=== PATIENT | female | born 1990 | race Caucasian/White ===

== ENCOUNTER 2017-12-29 08:41 | Outpatient (RCR) | payer MEDICAID, SELFPAY ==
--- NOTE | 2017-12-29 12:59 | PCM.HP.BLA ---
History and Physical Identifying information Patient is 27-year-old single female who presents to the behavioral medicine [facility] with chief complaint of I have a diagnosis of schizoaffective disorder history is been obtained per interview with patient discussion with staff and review of chart. Case discussed with treatment team. History of present illness Patient is 27-year-old single female with history of schizoaffective disorder bipolar type who reports increased mood instability and paranoia over the past 2-3 months. She associates her exacerbation of symptoms with job stress. 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 She notes that she has had recent accommodations at the job which have resulted in improvement. She endorses a long-standing history of mood cycling. She endorses episodes of depression in which she is sad with anhedonia, decreased energy, crying spells, decreased motivation, and difficulty with ADLs. She reports episodes of osei and hypomania in which she feels restless irritable anxious has decreased concentration and decreased need for sleep. Her last hypomanic episode was 3 days ago and lasted only one day. She endorses some depressed mood currently with anhedonia and difficulty concentrating. She was noted by staff to have difficulty with ADLs earlier in the week. She is generally been sleeping from 2 to 3 AM until 11:30 AM. She works second shift. She has ruminative anxiety about multiple issues. She is a perfectionist and feels that this has interfered with her work function. She endorses history of paranoid thoughts. She reports that they have been recently present she had describes her paranoid thoughts in which she fears she is being judged. She describes visual and auditory perceptual disturbances as I dissociate to imagery scenarios with people I know. It is unclear if these episodes are more dissociative or psychotic. She denies current suicidal thoughts. She has history of chronic passive thoughts of . No suicide plan or intent. Feels able to maintain safety. Her appetite has been fair. She has history of binge eating disorder. She was prescribed Vyvanse in October 2016 at which time her weight was 311 pounds. She feels it is been effective. Her weight is now 270 pounds. She denies homicidal thoughts. Past psychiatric history Schizoaffective disorder bipolar type. Suspect history of learning disability. No previous hospitalizations or suicide attempts. Current psychiatrist Dr. wang fernández. Current counselor Ana Sorenson. Substance use history Denies smoking cigarettes Consumes 2-3 alcoholic drinks once per month Denies illicit drug use Past medical history Hypothyroid Type 2 diabetes PCO S Hypertension Denies history of seizure Allergies no known medical allergies Current medications Seroquel 500 mg nightly [place] 600 mg p.o. twice daily Effexor 75 mg every morning Vyvanse 40 mg every morning Klonopin 0.5 mg as needed Synthroid Metoprolol Family medical psychiatric history She believes mother and father have both taken antidepressants. She believes there is undiagnosed mental illness in the family Developmental social history Patient was born in [place]. She has a twin brother. They moved to [place] at age 3. Her parents then . She moved to [place] for elementary and middle school. She moved back to [place] with her brother for high school. She graduated from high school she moved back to [place] in 2009. She is currently working at [employer] as a unit aide where she is worked for 2 months. She lives in an apartment alone. Her mother and stepfather live in [place]. Legal history none Mental status exam Vital signs reviewed per nursing database and discussed with nursing. Patient is alert and oriented in no acute distress. She is ambulatory with normal gait and station. She is casually dressed and groomed. She is appropriate hygiene. She is cooperative with the interview. She has good eye contact. There is no psychomotor agitation or retardation. Mood is dysphoric and anxious. Affect congruent. Speech is clear and of regular rate and volume. Language fluent. Thought process organized. Associations logical. Thought content significant for ruminative anxiety. Chronic passive thoughts of . No current suicide plan or intent. Feels able to maintain safety. No homicidal ideation. Reports visual and auditory perceptual disturbances of conversing with people she knows. Immediate recent and remote memory grossly intact attention and concentration are fair. Estimated intelligence fund of knowledge average. Judgment and insight are limited to fair. Labs and testing Lab work will be requested from Dr. wang aldridge. Further lab work will be obtained as needed. Diagnosis Schizoaffective disorder bipolar type Anxiety unspecified Obsessive-compulsive traits-rule out OCD Binge eating disorder by history Plan Admit to IOP as the structured setting is necessary to prevent decompensation. Risks benefits alternatives of medications discussed with patient. Patient acknowledges understanding. Continue Seroquel 500 mg p.o. nightly, lithium 600 mg p.o. twice daily, Effexor 75 mg p.o. every morning, Vyvanse 40 mg every morning, clonazepam 0.5 mg as needed. Patient denies exacerbation of her anxiety or perceptual disturbances by Vyvanse. Continue follow-up with Dr. piña up. Continue follow-up with Ana Sorenson. Follow-up with body coverer as scheduled. Patient acknowledges understanding and is in agreement with plan. She feels able to maintain safety. She agrees to seek help or emergency care feeling unsafe to self or others.
--- NOTE | 2017-12-29 13:13 | HP.PCM_ITS ---
History and Physical Identifying information Patient is 27-year-old single female who presents to the behavioral medicine [facility] with chief complaint of I have a diagnosis of schizoaffective disorder history is been obtained per interview with patient discussion with staff and review of chart. Case discussed with treatment team. History of present illness Patient is 27-year-old single female with history of schizoaffective disorder bipolar type who reports increased mood instability and paranoia over the past 2 -3 months. She associates her exacerbation of symptoms with job stress. 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 She notes that she has had recent accommodations at the job which have resulted in improvement. She endorses a long-standing history of mood cycling. She endorses episodes of depression in which she is sad with anhedonia , decreased energy, crying spells, decreased motivation, and difficulty with ADLs. She reports episodes of osei and hypomania in which she feels restless irritable anxious has decreased concentration and decreased need for sleep. Her last hypomanic episode was 3 days ago and lasted only one day. She endorses some depressed mood currently with anhedonia and difficulty concentrating. She was noted by staff to have difficulty with ADLs earlier in the week. She is generally been sleeping from 2 to 3 AM until 11:30 AM. She works second shift. She has ruminative anxiety about multiple issues. She is a perfectionist and feels that this has interfered with her work function. She endorses history of paranoid thoughts. She reports that they have been recently present she had describes her paranoid thoughts in which she fears she is being judged. She describes visual and auditory perceptual disturbances as I dissociate to imagery scenarios with people I know. It is unclear if these episodes are more dissociative or psychotic. She denies current suicidal thoughts. She has history of chronic passive thoughts of . No suicide plan or intent. Feels able to maintain safety. Her appetite has been fair. She has history of binge eating disorder. She was prescribed Vyvanse in October 2016 at which time her weight was 311 pounds. She feels it is been effective. Her weight is now 270 pounds. She denies homicidal thoughts. Past psychiatric history Schizoaffective disorder bipolar type. Suspect history of learning disability. No previous hospitalizations or suicide attempts. Current psychiatrist Dr. wang fernández. Current counselor Ana Sorenson. Substance use history Denies smoking cigarettes Consumes 2-3 alcoholic drinks once per month Denies illicit drug use Past medical history Hypothyroid Type 2 diabetes PCO S Hypertension Denies history of seizure Allergies no known medical allergies Current medications Seroquel 500 mg nightly [place] 600 mg p.o. twice daily Effexor 75 mg every morning Vyvanse 40 mg every morning Klonopin 0.5 mg as needed Synthroid Metoprolol Family medical psychiatric history She believes mother and father have both taken antidepressants. She believes there is undiagnosed mental illness in the family Developmental social history Patient was born in [place]. She has a twin brother. They moved to [place] at age 3. Her parents then . She moved to [place] for elementary and middle school. She moved back to [place] with her brother for high school. She graduated from high school she moved back to [place] in 2009. 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 She lives in an apartment alone. Her mother and stepfather live in [place]. Legal history none Mental status exam Vital signs reviewed per nursing database and discussed with nursing. Patient is alert and oriented in no acute distress. She is ambulatory with normal gait and station. She is casually dressed and groomed. She is appropriate hygiene. She is cooperative with the interview. She has good eye contact. There is no psychomotor agitation or retardation. Mood is dysphoric and anxious. Affect congruent. Speech is clear and of regular rate and volume. Language fluent. Thought process organized. Associations logical. Thought content significant for ruminative anxiety. Chronic passive thoughts of . No current suicide plan or intent. Feels able to maintain safety. No homicidal ideation. Reports visual and auditory perceptual disturbances of conversing with people she knows. Immediate recent and remote memory grossly intact attention and concentration are fair. Estimated intelligence fund of knowledge average. Judgment and insight are limited to fair. Labs and testing Lab work will be requested from Dr. wang aldridge. Further lab work will be obtained as needed. Diagnosis Schizoaffective disorder bipolar type Anxiety unspecified Obsessive-compulsive traits-rule out OCD Binge eating disorder by history Plan Admit to IOP as the structured setting is necessary to prevent decompensation. Risks benefits alternatives of medications discussed with patient. Patient acknowledges understanding. Continue Seroquel 500 mg p.o. nightly, lithium 600 mg p.o. twice daily, Effexor 75 mg p.o. every morning, Vyvanse 40 mg every morning, clonazepam 0.5 mg as needed. Patient denies exacerbation of her anxiety or perceptual disturbances by Vyvanse. Continue follow-up with Dr. ipña up. Continue follow-up with Ana Soernson. Follow-up with manager card as scheduled. Patient acknowledges understanding and is in agreement with plan. She feels able to maintain safety. She agrees to seek help or emergency care feeling unsafe to self or others.
--- NOTE | 2017-12-29 13:13 | BH.DR.ITP ---
Initial Treatment Plan - Patient Information Visit Information: ADMISSION DATE: EXPECTED LOS: 4-6 weeks Diagnoses:: Schizoaffective disorder bipolar type - Problems/Symptoms Problem #1:: Mood instability Symptom:: Depression, hypomania, passive thoughts of , poor concentration, biologic disruption of sleep, Problem #2:: Anxiety Symptom:: Rumination Problem #3:: Perceptual disturbances/dissociation/psychosis
--- NOTE | 2018-01-01 15:26 | BH.COMM ---
Communication Note - Communication with Client Communication Note: This therapist attempted to call client as she no called/no showed for scheduled IOP session today. Therapist unable to reach client and left a message sharing therapist will contact client's emergency contact if no client response by 3pm. Therapist contacted emergency contact and was informed client missed group due to oversleeping and client presents with no current risks/concerns for herself.
--- NOTE | 2018-01-02 14:10 | BH.SGPN ---
Service Group Progress Note - Session Psychotherapy Session #1 Date Open:: 01/02/18 Time Started:: 09:07 Time Stopped:: 09:58 Targeted Problem #:: 1 Type of Group:: Process - 5 Participants Goal of Group:: The goal of today's group was to check-in with client's mood, stressors, and positives, review homework, and to introduce the topic of the day. Client Response/Progress/Benefit:: Client entered session alert and attentive. Client appeared distracted AEB moving around in sharing, stretching, yawning, farting and bouncing legs. Client began by apologizing for not showing up to groups yesterday and reported feeling bad about it. When it came time for client to process she reported, My anxiety is getting high. It feels like everyone is watching me and the carr are closing in, followed by breathing rapidly. Therapist processed with client her comfort level for sharing and client proceeded to speak about how she forgot to take her medications on time Monday which resulted in increased depressive symptoms and psychosis revolving around a colleague at work who she feels is sarcastic and condescending. Client reported not knowing if this is something she should confront or if she is reading into too much. Client indicated her emotion as nervous and unsure since she has to go to work today and doesnt know how to deal with this. Client benefited from group by venting frustrations with peers and receiving support in return. Progress noted in clients awareness. Continued treatment necessary to increase social skills. Eye Contact:: Fair Motor Activity:: Restless Appearance:: Casual Speech:: Appropriate Mood:: Anxious Affect:: Congruent Thoughts:: Linear, Logical, Racing, No evidence of hallucinations/delusions noted Staff Interventions:: Therapist used open-ended questions to elicit information about client's current stressors and mood. Therapist was supportive by using active listening and reflection.
--- NOTE | 2018-01-02 14:18 | BH.SGPN_ITS ---
Service Group Progress Note - Session Psychotherapy Session #1 Date Open:: 01/02/18 Time Started:: 09:07 Time Stopped:: 09:58 Targeted Problem #:: 1 Type of Group:: Process - 5 Participants Goal of Group:: The goal of today's group was to check-in with client's mood, stressors, and positives, review homework, and to introduce the topic of the day. Client Response/Progress/Benefit:: Client entered session alert and attentive. Client appeared distracted AEB moving around in sharing, stretching, yawning, farting and bouncing legs. Client began by apologizing for not showing up to groups yesterday and reported feeling bad about it. When it came time for client to process she reported, ?My anxiety is getting high. It feels like everyone is watching me and the carr are closing in,? followed by breathing rapidly. Therapist processed with client her comfort level for sharing and client proceeded to speak about how she forgot to take her medications on time Monday which resulted in increased depressive symptoms and psychosis revolving around a colleague at work who she feels is sarcastic and condescending. Client reported not knowing if this is something she should confront or if she is reading into too much. Client indicated her emotion as nervous and unsure since she has to go to work today and doesn?t know how to deal with this. Client benefited from group by venting frustrations with peers and receiving support in return. Progress noted in client?s awareness. Continued treatment necessary to increase social skills. Eye Contact:: Fair Motor Activity:: Restless Appearance:: Casual Speech:: Appropriate Mood:: Anxious Affect:: Congruent Thoughts:: Linear, Logical, Racing, No evidence of hallucinations/delusions noted Staff Interventions:: Therapist used open-ended questions to elicit information about client's current stressors and mood. Therapist was supportive by using active listening and reflection.
--- NOTE | 2018-01-02 14:51 | BH.SGPN ---
Service Group Progress Note - Session Psychotherapy Session #2 Date Open:: 01/02/18 - participants Time Started:: 10:10 Time Stopped:: 11:00 Targeted Problem #:: 1 Type of Group:: Illness Management Goal of Group:: To increase understanding of a crisis and improve clients awareness of personal warning signs before crisis. Client Response/Progress/Benefit:: Client responded well to session, active participant, off topic at times-able to be redirected. Client processed the quote with peers, sharing coming to IOP was a difficult choice, but client is looking at the experience with an open-mind. Client discussed various crises with the group and gained insight on how high stress increases the likelihood of personal crisis. Client shared crisis to her is trying to keep things together but no control, my self-care is the first to go. Client reported when she is in crisis she has false beliefs and misinterpretations of others intentions which impacts clients willingness to accept help. Client identified lack of hygiene as a warning sign for crisis. Client appeared to benefit from increasing awareness of what crisis is like for her as well as how stress can impact one's ability to cope with difficult times. Client progressing as shown by her insight to barriers that prevent client from accepting help, but can continue to benefit from challenging those misconceptions. Eye Contact:: Good Motor Activity:: Restless Appearance:: Casual Speech:: Rambling Mood:: Anxious Affect:: Congruent Thoughts:: Linear, No evidence of hallucinations/delusions noted Staff Interventions:: Therapist facilitated group discussion about defining a crisis and specifying various events that are considered a crisis. Therapist led group in an activity in which group members had to identify their thoughts and emotions attached to being in a crisis. Therapist provided support by using active listening and providing feedback. Psychotherapy Session #3 Date Open:: 01/02/18 - 5 participants Time Started:: 11:10 Time Stopped:: 12:05 Targeted Problem #:: 1 Type of Group:: Functional Skills Development Goal of Group:: To increase awareness of warning signs before a crisis and identify interventions/coping strategies that would help clients proactively manage potential crises. Client Response/Progress/Benefit:: Client responded well to session, active participant. Client identified her top three warning signs before crisis as negative thinking, false beliefs, and decreased completion of daily activities. Client processed the crisis cycle and gained insight on how one's problem-solving and concentration abilities are impacted when in crisis which effects coping abilities. Client shared if she catches the warning signs early she can cope better. Client identified coping skills to utilize such as talking to someone, self-care, and challenging thoughts. Client created a crisis kit to remind client of positive coping skills to utilize when she recognizes warning signs. Client selected a heart, bead, feather, the letter T, and flower to remind client things dont have to be perfect, to use self-compassion, and of grounding techniques. Client appeared to benefit from creating a visual reminder of healthy coping skills she can utilize to prevent crisis. Client progressing as shown by her increased insight to warning signs, but can continue to benefit from challenging distorted thoughts. Eye Contact:: Good Motor Activity:: Restless Appearance:: Casual Speech:: Rambling Mood:: Anxious Affect:: Congruent Thoughts:: Linear, No evidence of hallucinations/delusions noted Staff Interventions:: Therapist led the group in discussion about identifying personal warning signs before a crisis and importance of being aware of those signs. Therapist provided the group with various types of items and asked each group member to select five items that represent something that would be helpful in managing their warning signs of a crisis. Therapist facilitated group processing of the crisis emergency kits each group member created. Therapist used open-ended questions to encourage elaboration of each item chosen for their kit. Therapist helped clients connect how the crisis emergency kit could help be a crisis prevention tool
--- NOTE | 2018-01-02 14:55 | BH.SGPN_ITS ---
Service Group Progress Note - Session Psychotherapy Session #2 Date Open:: 01/02/18 - 5 participants Time Started:: 10:10 Time Stopped:: 11:00 Targeted Problem #:: 1 Type of Group:: Illness Management Goal of Group:: To increase understanding of a crisis and improve client?s awareness of personal warning signs before crisis. Client Response/Progress/Benefit:: Client responded well to session, active participant, off topic at times-able to be redirected. Client processed the quote with peers, sharing coming to IOP was a difficult choice, but client is looking at the experience with an open-mind. Client discussed various crises with the group and gained insight on how high stress increases the likelihood of personal crisis. Client shared crisis to her is ?trying to keep things together but no control, my self-care is the first to go.? Client reported when she is in crisis she has ?false beliefs and misinterpretations of others? intentions? which impacts client?s willingness to accept help. Client identified lack of hygiene as a warning sign for crisis. Client appeared to benefit from increasing awareness of what crisis is like for her as well as how stress can impact one's ability to cope with difficult times. Client progressing as shown by her insight to barriers that prevent client from accepting help, but can continue to benefit from challenging those misconceptions. Eye Contact:: Good Motor Activity:: Restless Appearance:: Casual Speech:: Rambling Mood:: Anxious Affect:: Congruent Thoughts:: Linear, No evidence of hallucinations/delusions noted Staff Interventions:: Therapist facilitated group discussion about defining a crisis and specifying various events that are considered a crisis. Therapist led group in an activity in which group members had to identify their thoughts and emotions attached to being in a crisis. Therapist provided support by using active listening and providing feedback. Psychotherapy Session #3 Date Open:: 01/02/18 - 5 participants Time Started:: 11:10 Time Stopped:: 12:05 Targeted Problem #:: 1 Type of Group:: Functional Skills Development Goal of Group:: To increase awareness of warning signs before a crisis and identify interventions/coping strategies that would help clients proactively manage potential crises. Client Response/Progress/Benefit:: Client responded well to session, active participant. Client identified her top three warning signs before crisis as negative thinking, false beliefs, and decreased completion of daily activities. Client processed the crisis cycle and gained insight on how one's problem- solving and concentration abilities are impacted when in crisis which effects coping abilities. Client shared if she catches the warning signs early she can cope better. Client identified coping skills to utilize such as talking to someone, self-care, and challenging thoughts. Client created a crisis kit to remind client of positive coping skills to utilize when she recognizes warning signs. Client selected a heart, bead, feather, the letter T, and flower to remind client ?things don?t have to be perfect,? to use self-compassion, and of grounding techniques. Client appeared to benefit from creating a visual reminder of healthy coping skills she can utilize to prevent crisis. Client progressing as shown by her increased insight to warning signs, but can continue to benefit from challenging distorted thoughts. Eye Contact:: Good Motor Activity:: Restless Appearance:: Casual Speech:: Rambling Mood:: Anxious Affect:: Congruent Thoughts:: Linear, No evidence of hallucinations/delusions noted Staff Interventions:: Therapist led the group in discussion about identifying personal warning signs before a crisis and importance of being aware of those signs. Therapist provided the group with various types of items and asked each group member to select five items that represent something that would be helpful in managing their warning signs of a crisis. Therapist facilitated group processing of the crisis emergency kits each group member created. Therapist used open-ended questions to encourage elaboration of each item chosen for their kit. Therapist helped clients connect how the crisis emergency kit could help be a crisis prevention tool
--- NOTE | 2018-01-05 11:27 | BH.NA ---
Physical Data - Vital Signs Pulse Rate: 86 Respiratory Rate: 14 Blood Pressure: 122/65 - Height/Weight Height: 1.65 m Weight:: 125.191 kg Weight in Pounds: 276.0 lbs Current Medication Compliance - Medication Compliance Do you take your medication as prescribed?: Yes Do you need assistance with taking medication?: No Have you had side effects from medication?: Yes Nutritional History - Appetite Nutritional Instructions:: If client shows signs of a swallowing problem, weight change of 10 pounds or more in the last month, or is on a diabetic diet, the physician will review and request a dietitian consult, as appropriate. All unintentional weight loss will be referred to the physician for decision on need for dietitian consult. Describe your appetite:: Good Have you noticed a change in your eating habits lately?: Yes - appetite increased with worsening depression Functional Assessment - Sleep Pattern Describe any problems with sleeping: Client denies problems with sleep if she takes her Seroquel - getting 6-8 hours/night on average. - Activities Motor Activity:: Functional Sensory/Communication Assess - Hearing Problems Do you have any hearing problems?: Adequate - Communication Problems Do you have difficulty understanding what people are saying?: No Do you have trouble putting your thoughts into words or expressing what you want to say?: No Do people ever have trouble understanding what you say?: Yes What is your primary language?: Sudanese Medical Problems/History - Cardiac Conditions Cardiovascular: Hypertension - Metabolic Conditions Metabolic: Diabetes, Hypothyroidism, Other (See comments) - PCOS - Pain Assessment Do you have acute or chronic pain?: No - Female Reproductive Do you think you may be ?: No Number of pregnancies:: 0 Have you reached menopause?: No Substance Abuse - Substance Abuse Please describe substance abuse in the last 30 days:: ETOH use 1x/month, denies tobacco and illicit substance use. 1 caffienated beverage daily. Mental Status Summary - Mental Status Significant Findings/Observations on Appearance and Mood:: Client A&Ox4 and cooperative with interview. She is hyperactive in seat, makes poor eye contact, mildly deshevled with unkempt hygiene. Speech is clear and of regular rate and volume. Mild anxiety. Full affect. Logical associations and normal process. Fair knowledge. No symptoms of delusions. Chronic auditory hallucinations. Denies SI or HI. Steady gait. Suicide Assessment - Suicidal Ideation Are you currently or have you been suicidal in the past?: No Physician Notification: If Active suicidal thoughts/Will not contract for safety is checked, contact physician and document in the Physician Notification section below. Past Psychiatric History - MH Treatment Hx Past Psychiatric Medications:: Jenny, Jillian, Nakul, Geovani, and Fanapt Fall Risk Assessment - Age Age: Less than 60 - Mental Status Mental Status: Willing & able to ask for assistance when needed - Physical Status Physical Status: No problems - Impairments Impairments: None - Elimination Elimination: Continent AND independent - Gait or Balance Gait or Balance: Walks independently - Hx of Falls History of falls in the past 6 months: No known history - Medications/Substances Psychotropics:: Antipsychotics, Sedatives Medications/substances used within the past 24 hours or ordered to administer: 1-2 of the medications/substances listed above - Total Score Total Points:: 1 RN Summary of Impressions - Impressions Recommendations: Include psychiatric and medical issues, treatment planning recommendations, and discharge planning needs. Impression: General Medical Conditions: PCOS, DM2, HTN, hypothyroid - Level of Care How do the client's current symptoms and functional deficits support need for this level of care?: Client notes increased mood instability for the past 2-3 months which she relates to job stress. This has caused her to be isolative, not completing ADL's, and with decreased hygiene practices. She recognizes that she has had increased hallucinations and intermittent paranoia. She has limited support, which consists of her mother who is local, her best friend in [place], and her boyfriend in [place]. This IOP program will encourage gains and help prevent further decompensation.
--- NOTE | 2018-01-05 14:21 | BH.SGPN_ITS ---
Service Group Progress Note - Session Psychotherapy Session #2 Date Open:: 01/05/18 - 6 participants Time Started:: 10:17 Time Stopped:: 11:07 Targeted Problem #:: 1 Type of Group:: Illness Management Goal of Group:: To increase understanding and awareness of emotions connected to change and the impact those emotions can have on change. Client Response/Progress/Benefit:: Client responded well to session, active participant. Client appeared to connect with the quote stating, you can?t wait for a perfect moment to change.? Client able to identify emotions associated with making change such as fear, panic, and feeling out of control. Client stated she has tried to make big changes in the past, but instead of taking small steps client ?tried too much at once.? Client recognized this way of making change led to frustration and client giving up on her goal. Client reported determination is very important when managing change. Client appeared to benefit from increasing awareness of the emotions associated with making change and how these emotions impact thoughts and behaviors. Eye Contact:: Good Motor Activity:: Appropriate Appearance:: Casual Speech:: Appropriate Mood:: Euthymic Affect:: Constricted Thoughts:: Linear, No evidence of hallucinations/delusions noted Staff Interventions:: Therapist facilitated group discussion about change. Therapist led the group in an activity in which the activity was utilized as a tool to increase client?s awareness of emotions connected with change. Therapist led the processing of how each emotion was associated with change. Therapist also educated clients on the stages of change and discussed emotions associated with each stage. Therapist was supportive by providing feedback and using reflective listening.
--- NOTE | 2018-01-05 15:19 | BH.MDN ---
Multi-Disciplinary Note - Note 60-min Individual Time Started:: 08:30 Date: 01/05/18 Eye Contact:: Good Motor Activity:: Restless Appearance:: Casual - Client wearing work scrubs. Speech:: Pressured Mood:: Anxious Affect:: Congruent Thoughts:: Linear, Logical, No evidence of hallucinations/delusions noted Time Stopped:: 09:33
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
--- NOTE | 2018-01-08 08:31 | BH.MTP_ITS ---
Master Treatment Plan - Patient Information Program Physician:: Ute Pearson Primary Therapist:: Daily Barba - Psychiatric Diagnoses Psychiatric Diagnoses:: Schizoaffective disorder bipolar type. Anxiety unspecified. Obsessive-compulsive traits-rule out OCD. Binge eating disorder by history - Estimated LOS Estimated LOS (in weeks):: 6 Problem/Goal #1 - Problem/Goal #1 Stated Goal:: Client will stabilize mood and increase emotion regulation and behavioral control through skills learning in Behavioral Health IOP program. Description of Barriers: Client has limited insight related to causes or triggers to anxiety, she has difficulty with maintaining appropriate boundaries or identifying when to filter thought content in social settings. CLient reports becoming easily overwhelmed, isolating, avoidance, and lack of communication with supports. Client is concrete in her thinking patterns and has difficulties in adjusting to changes in routine or unclear expectations. Client has difficulty with maintaining attendance on a consistent basis. Functional Impact: Client current mental health symptoms including anxiety, depression, ruminating and intrusive thought, as well as paranoia have increased social isolation and created difficulties in communicating with others on a daily basis. This has led to increased tension in the work place including two terminations, increased isolation, and difficulties in completing daily tasks. Goal Relevant Strengths/Supports: Client is intelligent, resilient, and motivated to improve current mental health symptoms. Client has previously been engaged in mental health services. She is willing and open to trying new treatment strategies. - Objectives Objective #1 Stated Objective: Client will learn and implement 2-3 effective communication skills to empower client to communicate thoughts and feelings. Interventions: Therapist will teach client effective communication skills and will provide homework for client to practice communication skills outside of sessions. Discharge Criteria: Client will be able to successfully identify and utilize 2- 3 effective communication strategies in order to relay her thoughts and feelings to others. Target Date: 02/09/18 Review Date: 01/19/18 Objective #2 Stated Objective: Client will identify 2-3 coping strategies to use when feeling overwhelmed. Interventions: Therapist will help client process triggers to increased symptoms , and then identify ways to manage these feelings and thoughts. Therapist will also work on helping client feel less isolated and understand better behaviors and escalating tendencies. Discharge Criteria: Client will have met this goal when can safely use 1-2 coping strategies when feeling overwhelmed. Target Date: 02/09/18 Review Date: 01/19/18 Problem/Goal #2 - Problem/Goal #2 Stated Goal:: Client will decrease ruminating thoughts which cause anxiety. Description of Barriers: Client has limited insight related to causes or triggers to anxiety, she has difficulty with maintaining appropriate boundaries or identifying when to filter thought content in social settings. CLient reports becoming easily overwhelmed, isolating, avoidance, and lack of communication with supports. Client is concrete in her thinking patterns and has difficulties in adjusting to changes in routine or unclear expectations. Client has difficulty with maintaining attendance on a consistent basis. Functional Impact: Client current mental health symptoms including anxiety, depression, ruminating and intrusive thought, as well as paranoia have increased social isolation and created difficulties in communicating with others on a daily basis. This has led to increased tension in the work place including two terminations, increased isolation, and difficulties in completing daily tasks. Goal Relevant Strengths/Supports: Client is intelligent, resilient, and motivated to improve current mental health symptoms. Client has previously been engaged in mental health services. She is willing and open to trying new treatment strategies. - Objectives Objective #1 Stated Objective: Client will learn and implement 2-3 calming skills to reduce overall anxiety and manage anxiety symptoms Interventions: Therapist will teach client calming/relaxation skills and assign client homework which practices relaxation skills daily. Discharge Criteria: Client will have achieved this goal when can verbalize at least 2 calming skills and implement those skills. Target Date: 02/09/18 Review Date: 01/19/18
--- NOTE | 2018-01-08 15:24 | BH.SGPN_ITS ---
Service Group Progress Note - Session Psychotherapy Session #2 Date Open:: 12/29/17 Time Started:: 10:10 Time Stopped:: 11:15 Targeted Problem #:: 1 Type of Group:: Illness Management Goal of Group:: The goal of group was to increase understanding of coping strategies and impact problems have on self. Another goal was to practice utilizing coping skills in the moment. Client Response/Progress/Benefit:: Client contributed to discussion and listened to others comments. Client connected with others about the consequence of utilizing unhealthy coping strategies because it tends to make things worse. She identified one barrier to using healthy coping strategies is not really knowing what to do so just do what you always done. Seemed to benefit from group discussion about strategies to help increase use of healthy coping strategies as well as engaging in challenge activity that required client to be able to use healthy coping strategies in the moment to keep herself calm. During challenge activity client appeared visibly anxious did a good job vocalizing her needs throughout group. Eye Contact:: Fair Motor Activity:: Appropriate Appearance:: Casual Speech:: Appropriate Mood:: Anxious, Depressed Affect:: Constricted Thoughts:: Linear, Logical, No evidence of hallucinations/delusions noted Staff Interventions:: Therapist facilitated the group discussion about coping strategies. Therapist group and activity challenge them to work together in utilize healthy coping skills in the moment. Therapist utilized the activity as a tool to process what it feels like when dealing with problems and what strategies they used to cope throughout activity. Psychotherapy Session #3 Date Open:: 12/29/17 Time Started:: 11:22 Time Stopped:: 12:12 Targeted Problem #:: 1 Type of Group:: Functional Skills Development Goal of Group:: The goal of group was to increase client???s ability to recognize the different between an internal and external coping strategy. Another goal was to increase client???s self-awareness on their use of coping strategies and increase repertoire of healthy coping strategies. Client Response/Progress/Benefit:: Client at her thoughts and feelings to the group discussion and listened to others. Client able to identify various healthy coping strategies that she has used to have been helpful to her. Identified for her healthy coping skills menu she is willing to try: Guided imagery, positive affirmations, exercise, and mindfulness. Seemed to benefit from increasing respiratory of healthy coping strategies as well as identify which coping strategies she is going to practice. Eye Contact:: Fair Motor Activity:: Appropriate Appearance:: Casual Speech:: Appropriate Mood:: Anxious, Depressed Affect:: Constricted Thoughts:: Linear, Logical, No evidence of hallucinations/delusions noted Staff Interventions:: Therapist facilitated discussion about the different types of coping skills. Therapist led group in an activity in which group members were asked to brainstorm coping strategies that fit in each coping skill category. Therapist led a discussion about whether the coping strategies identified were healthy or unhealthy.
--- NOTE | 2018-01-12 09:28 | BH.COMM ---
Communication Note - Communication with Client Communication Note: Therapist spoke with Client regarding several cancelled sessions made by CLient in the past week. Client indicates struggling to balance the program with work obligations and waking up in time. Client indicated wanting to remain in IOP program; however, would not be able to attend this week as well due to her boyfriend staying from out of town. Therapist reviewed the attendance policy with Client and discussed importance of regular and consistent attendance in order for the program to be most effective. Client reports understanding the reasoning for regular attendance and is aware that she may return to the program when her shedule may permit consistent attendance. Client to be discharged from IOP program at this time.
--- NOTE | 2018-01-15 09:46 | BH.DS ---
Discharge Summary - Demographics Date of Admission:: 12/29/17 Discharge Date: 01/12/18 Presenting Problems at Admission:: Client reports to Behavioral Health [facility] program with chief complaints of difficulty managing symptoms of paranoia and rumination associated with schitzoaffective disorder, difficulty regulating emotions, and a desire to improve social interaction and communication skills. Client indicates increased anxiety, rumination regarding how others percieve her, and irritability in the past 2-3 years causing increased social and occupational stress. Discharge Diagnoses:: Schizoaffective disorder bipolar type. Anxiety unspecified. Obsessive-compulsive traits-rule out OCD. Binge eating disorder by history Reason for Discharge:: Client voluntarily discharged from [facility] after one week of attendance due to work and other obligations. Client unable to commit to program attendance requirements at this time. Client encouraged to return to [facility] program should her schedule change allowing her to maintain regular attendance in the future. Due to early discharge, discharge surveys and handouts were not completed. Aftercare resources for mental health discussed with client and client was encouraged to follow up with his outpatient providers. - Treatment Progress During Treatment & Response: Client progress towards treatment goals limited due to inconsistent attendance as client only able to attend 3 sessions prior to discharge. This impacted clients ability to make significant changes in managing symptoms of anxiety or challenging ruminative thoughts and frequently utilized distorted thinking patterns. When in attendance client appeared to respond well and remained engaged in both individual and group sessions, actively providing input to the discussion and participating in the activities. During individual session client reported high levels of motivation to change and was able to provide insight into current symptoms, stressors, and difficulties navigating social situations. Issues Still to be Addressed:: Client would benefit from continued work in the individual therapeutic setting on increasing levels of insight regarding social and communication skills, body awareness, in the impact ruminative thoughts related to others perceptions have on gaining/maintaining healthy relationships. Client additionally would benefit from increasing her understanding of cognitive distortions as well as work on identifying and utilizing effective tolls to challenge and replace unhelpful thinking patterns. Client would also benefit from increasing use of healthy coping skills, use of social supports, identifying and challenging use of personalization, as well as prioratizing. Client reported work is a primary stressor due to ineffective communication in the workplace, which could present as a concern post discharge as client is continuing to work without increasing use of effective communication strategies. Discharge Recommendations/Instructions:: Client recommended to follow up with individual therapist, Dr. Ana Sorenson, and psychiatrist, Dr. Camilo[facility] for ongoing therapy and medication management. Client additionally encouraged to contact outpatient therapist to set up a couple's counseling session as CLient reports wanting to discuss with boyfirend effective support and communication strategies. Client encouraged to continue to reach out to her supports when feeling overwhelmed or upset. Discharge Handout: Complete Discharge Handout with client on aftercare options and continuity of care.
--- NOTE | 2018-01-15 10:37 | BH.DS_ITS ---
Discharge Summary - Demographics Date of Admission:: 12/29/17 Discharge Date: 01/12/18 Presenting Problems at Admission:: Client reports to Behavioral Health [facility] program with chief complaints of difficulty managing symptoms of paranoia and rumination associated with schitzoaffective disorder, difficulty regulating emotions, and a desire to improve social interaction and communication skills. Client indicates increased anxiety, rumination regarding how others percieve her , and irritability in the past 2-3 years causing increased social and occupational stress. Discharge Diagnoses:: Schizoaffective disorder bipolar type. Anxiety unspecified. Obsessive-compulsive traits-rule out OCD. Binge eating disorder by history Reason for Discharge:: Client voluntarily discharged from [facility] after one week of attendance due to work and other obligations. Client unable to commit to program attendance requirements at this time. Client encouraged to return to [facility] program should her schedule change allowing her to maintain regular attendance in the future. Due to early discharge, discharge surveys and handouts were not completed. Aftercare resources for mental health discussed with client and client was encouraged to follow up with his outpatient providers. - Treatment Progress During Treatment & Response: Client progress towards treatment goals limited due to inconsistent attendance as client only able to attend 3 sessions prior to discharge. This impacted clients ability to make significant changes in managing symptoms of anxiety or challenging ruminative thoughts and frequently utilized distorted thinking patterns. When in attendance client appeared to respond well and remained engaged in both individual and group sessions, actively providing input to the discussion and participating in the activities. During individual session client reported high levels of motivation to change and was able to provide insight into current symptoms, stressors, and difficulties navigating social situations. Issues Still to be Addressed:: Client would benefit from continued work in the individual therapeutic setting on increasing levels of insight regarding social and communication skills, body awareness, in the impact ruminative thoughts related to others perceptions have on gaining/maintaining healthy relationships. Client additionally would benefit from increasing her understanding of cognitive distortions as well as work on identifying and utilizing effective tolls to challenge and replace unhelpful thinking patterns. Client would also benefit from increasing use of healthy coping skills, use of social supports, identifying and challenging use of personalization, as well as prioratizing. Client reported work is a primary stressor due to ineffective communication in the workplace, which could present as a concern post discharge as client is continuing to work without increasing use of effective communication strategies. Discharge Recommendations/Instructions:: Client recommended to follow up with individual therapist, Dr. Ana Sorenson, and psychiatrist, Dr. Camilo, [facility] for ongoing therapy and medication management. Client additionally encouraged to contact outpatient therapist to set up a couple's counseling session as CLient reports wanting to discuss with boyfirend effective support and communication strategies. Client encouraged to continue to reach out to her supports when feeling overwhelmed or upset. Discharge Handout: Complete Discharge Handout with client on aftercare options and continuity of care.
[2018-03-16 14:59] VITALS: BP 122/65; PULSE 86; RESP 14
== END 2018-01-12 14:00 | disposition home or self-care (01) ==
LOC: BHIOP 08:41
PROVIDERS: Visit Provider Psychiatry & Neurology Psychiatry
DX: F25.0 Schizoaffective disorder, bipolar type (principal); F41.9 Anxiety disorder, unspecified; F42.9 Obsessive-compulsive disorder, unspecified; F50.81 Binge eating disorder
CPT/HCPCS: 99204; H0035; H2012; H2020; T1002; 90837; 90853

== ENCOUNTER 2018-06-19 08:30 | Outpatient (RCR) | payer MEDICAID, SELFPAY ==
--- NOTE | 2018-06-19 09:04 | BH.SGPN.GN ---
Behaviors/Verbalizations/Mental Status: [Client eye contact good, casually dressed, motor activity restless - client moving throughout session and fidgetting with vatious items throughout the room - apparent lack of body awareness or socially appropriate behavior as client rubbing stomach, stretching, and loudly yawning during group discussion, speech normal rate and tone, mood hopeful, euthymic, congruent affect, thoughts logical, no evidence of delusions or hallucinations. Therapist reviewed clients symptom tracker to assess for intensity of mental health symptoms and identify risk for suicide. No signs of suicidal ideation, plan, or intent to date.] Client Response/Progress/Benefit: [Client first day in IOP program however was able to easily adjust to tx setting as client previously admitted to program. She was actively engaged in group discussion and provided supportive feedback to fellow participants. At times client appeared to struggle with appropriate communication/socialization skills AEB interrupting other participants, making loud noises during discussion, or difficulties in identifying what may be overstepping her bounds as appropriate advice to individuals she just met. Client described seeking IOP tx several weeks ago following the lose of her job but was unable to begin the program until now. She reported a desire to work on improving her ability to manage stress and develop strong conflict resolution skills. She identified having few supports outside of her boyfriend and appeared to benefit from the supportive and structured setting of group. CLient would benefit from continued IOP tx to improve social awareness and healthy communication skills as well as prevent decompensation. ] Narrative Note: []
--- NOTE | 2018-06-19 10:30 | BH.SGPN.GN ---
Behaviors/Verbalizations/Mental Status: []Client alert and oriented, casual dress. Eye contact good. Motor activity restless at times. Speech within normal limits. Affect constricted, mood anxious. Thoughts linear, logical, no signs of hallucinations or delusions. Client Response/Progress/Benefit: []Client responded well to session, contributing positively. Client appeared to connect with the quote, sharing, I invent thoughts and scenarios in my mind and then I get paranoid, which is also part of my hallucinations. Client contributing to the discussion of automatic thoughts and how negative automatic thoughts can impact emotions and behaviors. Client reported she has a hard time letting negative thoughts pass, which leads to increased anxiety and spiraling. Client helped the group identify the common cognitive distortions. Client identified jumping to conclusion, mind-reading, and personalizing as the distortions client most often uses. Client appeared to benefit from gaining awareness of the cognitive distortions and how negative thinking impacts mental health and self-esteem. Clients first day of IOP, appeared to increase awareness of distorted thoughts during group. Client to continue IOP to prevent decompensation and increase emotional regulation.
--- NOTE | 2018-06-19 11:33 | BH.SGPN.GN ---
Behaviors/Verbalizations/Mental Status: []Client alert and oriented, dress casual. Eye contact good. Motor activity appropriate. Speech within normal limits. Affect constricted, mood anxious, irritable. Thoughts linear, logical, no signs of hallucinations or delusions. Client Response/Progress/Benefit: []Client responded well to session, active participant and helping the group rehearse thought challenging. Client participated in the activity and shared you need to be more than aware to make progress you have to actively go about change. Client practiced in the moment coping skills by challenging a current cognitive distortion of Graham is mad at me and hates me because I took too long. Client reported this thought is magnification and mind-reading. Client helped the group identify ways to combat negative thoughts such as looking at the evidenced, having awareness of distortions, and practicing daily. Client appeared to benefit from gaining awareness of the distortions and learning strategies to challenge negative thoughts. Limited progress as it is clients first day. Client to continue IOP to prevent decompensation and increase mood stability.
--- NOTE | 2018-06-19 14:19 | BH.MDN ---
Multi-Disciplinary Note - Note 30-min Individual Time Started:: 12:35 Date: 06/19/18 Purpose of session/treatment goals addressed:: The purpose of this session was to build rapport, gather information on client's current psychosocial stressors and symptoms, and identify treatment goals. Eye Contact:: Fair Motor Activity:: Restless - adjusting in chair, frequently touching stomach and moving arms. Appearance:: Casual Speech:: Rapid Mood:: Anxious Affect:: Constricted Thoughts:: Linear, Logical, No evidence of hallucinations/delusions noted Staff Interventions:: Therapist used open-ended questions to gather information on client's current psychosocial stressors and symptoms. Therapist provided client a safe space to verbalize and process emotions and situations contributing to client's current mental health symptoms. Therapist explored client's treatment goals and helped client process scheduling issues using a cost benefit analysis. Therapist provided emotional validation and used active listening. Client Response:: Client responded well to session, open to meeting with therapist. Client stated her first day went well, client enjoyed learning about the cognitive distortions. Client shared I use distortions all the time, almost every time I talk. Client reported work stress, depression, and being overwhelmed brought client back to [facility]. Client shared she had felt depressed since about January due to what client reports as a hostile work environment and some family issues. Client shared having increased crying spells, negative thinking, and passive thoughts of suicide. Client was fired from her job, but recently got a new job which client is looking forward to. Client reported her new job is third shift, which may make coming to [facility] challenging, but client stated, I think the program will be helpful, so I want to make it work. Client stated she is started to feel less depressed and more on a high, but client reported belief she is not hypomanic as client shared I dont feel giddy like I normally do when Im hypomanic. Client receptive to monitoring her mood to promote awareness of symptoms and prevent setbacks. Client identified her treatment goals to be increasing coping skills to help client gain more control of her thoughts and emotions. Client also stated she would like to improve self-esteem and increase mood stability. Risks/Concerns:: Client reported having latent thoughts of a month ago while working at her old job. Client denied current suicidal ideation, plan, and intent as of 06/19/18. Client reported looking forward to her new job which demonstrates future orientation. Client shared ability to maintain safety. Progress Toward Goals/Plan:: No progress to document at this time. Client's first day in IOP. Client participated in the IOP program previously from 12/29/17 to 01/15/18. Client stated she is hopeful to be back in IOP as she had been depressed and overwhelmed due to work stressors. Client shared she wants to improve coping skills to challenge distortions, increase mood stability, and improve self-esteem. Client to continue IOP to prevent decompensation and promote mood stability. Time Stopped:: 13:10
--- NOTE | 2018-06-19 14:20 | BH.MTP_ITS ---
[facility] - Patient Information Program Physician:: Sandra Pearson Primary Therapist:: Bozena Cueto - Psychiatric Diagnoses Psychiatric Diagnoses:: Schizoaffective disorder bipolar type Diagnosis Code(s):: F 25.0 - Estimated LOS Estimated LOS (in weeks):: 6 Problem/Goal #1 - Problem/Goal #1 Stated Goal:: Client will increase emotion regulation, mood stability, and behavioral control through skills learned in Behavioral Health IOP program. Description of Barriers: Client has a fianc? who is supportive in client's mental health treatment, but he lives in [place]. Besides, client's fianc?, she reports few positive social supports which could be a barrier to progress. Client has awareness of cognitive distortions, warning signs, and unhealthy coping skills, but struggles with applying healthy coping to manage mental health symptoms. Client endorses chronic auditory hallucinations, negative core beliefs, and latent suicidal thoughts. Client reports difficulty regulating her emotions which in the past has caused client issues at work and other areas of life. Client reports history of her psychiatric symptoms interfering with her functioning. As evidenced by client?s previous IOP admission, client has had inconsistent attendance in the past which could demonstrate as a barrier in her current IOP admission. Additionally, client recently got hired for a third shift job which could impact her attendance as well. Functional Impact: Client is a 27-year-old female with history of schizoaffective disorder bipolar type who previously participated in the behavioral medicine IOP in December 2017 but did not complete the IOP program. Client shared her psychiatric symptoms continued to interfere with functioning. Client returned to the program with increased mood symptoms and stressors after recently getting fired from a job. Per client?s report, she was fired due to mental health reasons. Client reports some depressive symptoms 2 weeks ago including passive suicidal thoughts, crying spells, and irritability. Client shared her mood is euthymic this week due to recently getting a new job. Client denies current manic symptoms. Client reports a history of chronic passive suicidal thoughts running in the background,? but denies current suicidal thinking and states I am not going to act. Client endorses chronic auditory hallucinations that per client?s report are currently controlled. At admission client endorsed ruminative anxiety, negative thinking, irritability, some isolation, and mood cycling. Goal Relevant Strengths/Supports: Client appears intelligent, caring, and motivated to increase management of her mental health symptoms. Client demonstrates insight to mental health warning signs, symptoms, and triggers which can help client implement healthy coping skills. Client reports willingness to work on social skills, emotional regulation, and challenging negative thoughts. Client shared IOP is going to help me, so I want to make it work this time. - Objectives Objective #1 Stated Objective: Client will identify 2-3 triggers for depression and irritability and 2-3 coping skills to use to increase emotional regulation and reduce depressive symptoms as evidenced by a reduction in her DSM-5 cross- cutting symptom measure score for depression and osei. Interventions: Therapist will help client identify her triggers for depression, osei, and irritability. Therapist will help client increase awareness of mental , physical, and behavioral warning signs for depression, irritability, and osei , and teach client various coping strategies to effectively cope with these mental health symptoms. Discharge Criteria: Client will have achieved this goal when her DSM-5 cross- cutting symptoms shown a reduction in scores for depression and osei. Additionally, client will met this goal when can identify at least 2 triggers, verbalize two healthy coping strategies. Target Date: 07/31/18 Review Date: 07/20/18 Status: open Objective #2 Stated Objective: Client will identify and replace 2-3 negative thinking patterns that mediate feelings of hopelessness and low self-esteem. Interventions: Through groups and individual therapy, client will be provided with education on cognitive distortions, mistaken beliefs, and identifying and combating negative self-talk. Therapist will help client explore connection between thoughts, feelings, and actions. Therapist will assist client in identifying positive affirmations of self and encourage client to practice positive self-talk and self-care daily. Discharge Criteria: Client will have accomplished this objective when she can identify 2-3 negative thinking patterns and be able to effectively stop, challenge, or cope with those negative thoughts. Target Date: 07/31/18 Review Date: 07/20/18 Status: open Problem/Goal #2 - Problem/Goal #2 Stated Goal:: Client will decrease ruminating thoughts which cause anxiety. Description of Barriers: Client has a fianc? who is supportive in client's mental health treatment, but he lives in [place]. Besides, client's fianc?, she reports few positive social supports which could be a barrier to progress. Client has awareness of cognitive distortions, warning signs, and unhealthy coping skills, but struggles with applying healthy coping to manage mental health symptoms. Client endorses chronic auditory hallucinations, negative core beliefs, and latent suicidal thoughts. Client reports difficulty regulating her emotions which in the past has caused client issues at work and other areas of life. Client reports history of her psychiatric symptoms interfering with her functioning. As evidenced by client?s previous IOP admission, client has had inconsistent attendance in the past which could demonstrate as a barrier in her current IOP admission. Additionally, client recently got hired for a third shift job which could impact her attendance as well. Functional Impact: Client is a 27-year-old female with history of schizoaffective disorder bipolar type who previously participated in the behavioral medicine IOP in December 2017 but did not complete the IOP program. Client shared her psychiatric symptoms continued to interfere with functioning. Client returned to the program with increased mood symptoms and stressors after recently getting fired from a job. Per client?s report, she was fired due to mental health reasons. Client reports some depressive symptoms 2 weeks ago including passive suicidal thoughts, crying spells, and irritability. Client shared her mood is euthymic this week due to recently getting a new job. Client denies current manic symptoms. Client reports a history of chronic passive suicidal thoughts running in the background,? but denies current suicidal thinking and states I am not going to act. Client endorses chronic auditory hallucinations that per client?s report are currently controlled. At admission client endorsed ruminative anxiety, negative thinking, irritability, some isolation, and mood cycling. Goal Relevant Strengths/Supports: Client appears intelligent, caring, and motivated to increase management of her mental health symptoms. Client demonstrates insight to mental health warning signs, symptoms, and triggers which can help client implement healthy coping skills. Client reports willingness to work on social skills, emotional regulation, and challenging negative thoughts. Client shared IOP is going to help me, so I want to make it work this time. - Objectives Objective #1 Stated Objective: Client will identify and replace 2-3 anxiety producing thoughts that she tends to ruminate to reduce anxiety as evidenced by a reduced DSM-5 cross-cutting score for anxiety. Interventions: Therapist will encourage client to use self-awareness strategies to identify cognitive distortions and ruminating thoughts and assist client in developing coping strategies to manage ruminating thoughts. Therapist will help client gain awareness of the benefits and costs of rumination and use radical acceptance to help client manage stressors out of her control. Discharge Criteria: Client will have met this goal when her DSM-5 cross-cutting scores show a reduced score for anxiety. Client will also have accomplished this goal when she can report identifying and replace at least 2 anxiety producing thoughts client tends to ruminate on. Target Date: 07/31/18 Review Date: 07/20/18 Status: open Objective #2 Stated Objective: Client will learn and implement 2-3 calming skills to reduce overall anxiety and manage anxiety symptoms Interventions: Therapist will help client increase awareness of anxiety triggers and warning signs to promote proactive use of coping skills. Therapist will teach client calming/relaxation skills and assign client homework which practices relaxation skills daily. Discharge Criteria: Client will have achieved this goal when can verbalize at least 2 calming skills and report implementing those skills. Target Date: 07/31/18 Review Date: 07/20/18 Status: open
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
--- NOTE | 2018-06-21 09:02 | BH.SGPN.GN ---
Behaviors/Verbalizations/Mental Status: [] Pt eye contact poor, disheveled dress, appeared groomed appropriately, motor activity restless, speech normal rate and tone, mood euthymic and anxious, constricted affect, thoughts linear and intact, no evidence of delusions or hallucinations. Reviewed client?s symptom tracker, no signs of suicidal ideation, plan, or intent as of today. Client Response/Progress/Benefit: [] Pt reported she wasn't able to make it to IOP yesterday because realized she was being too ambitious with her goal of making it 4 times to IOP. Pt shared she thinks it will be better to attend 3 days a week because it helps her to have a break in between days. Pt reported she's been slowly working on getting accustomed to a third shift schedule because she starts her new job on Monday. Pt shared she chose third shift so she could attend IOP during the day. Pt reported overall the past week has been going well, noted a positive that she got more money on her food stamp card to help with groceries until she gets her first paycheck from new job. Pt identified feeling somewhat anxious about asking her mom for some money to help pay for some bills. Pt progressing with recognizing positives and reported using skills from the group she attended of challenging cognitive distortions. Pt to continue IOP to maintain stability, improve daily functioning, and prevent decompensation. Narrative Note: []
--- NOTE | 2018-06-21 10:09 | BH.SGPN.GN ---
Behaviors/Verbalizations/Mental Status: [Client maintained good eye contact, casually dressed in sweats, motor activity restless - frequently moving around in seat or fidgeting with items on table, speech normal rate and tone, mood euthymic - provided positive input and support, congruent affect, thoughts linear and logical, no evidence of delusions or hallucinations.] Client Response/Progress/Benefit: [Client responded positively to session, engaged throughout discussion. She displayed progress in her ability to connect tx content to ~her own mental health symptoms. Client worked with fellow participants on identifying the Internal barriers preventing progress in managing mental health symptoms. She benefitted from processing her current reality and desired realities as well as what may be preventing her from closing the gap between the two. Client indicated that her current reality feels as though she is in a boxing match between herself on all of the obstacles she faces. She expressed wanting to move towards a reality in which she is achieving all of the goals she had set for herself as well as overcome or learned to live with her identified obstacles. Recommended continued IOP tx to prevent decompensation and continue to improve use of course coping and emotion regulation skills.] Narrative Note: []
--- NOTE | 2018-06-21 11:18 | BH.SGPN.GN ---
Behaviors/Verbalizations/Mental Status: [Client maintained good eye contact, casually dressed in sweats, motor activity appropriate, speech normal rate and tone, mood euthymic, anxious - provided positive input and support, congruent affect, thoughts linear and logical, no evidence of delusions or hallucinations.] Client Response/Progress/Benefit: [Client responded well to session and able to actively participate in both activity and discussion portions of group. CLient appeared to benefit from working with the group on problem solving solutions for the barriers each participant identified as preventing them from reaching desired realities. CLient expressed struggling most significantly with managing toxic relationships and feeling as though others are not empathetic regarding client mental health. Client displayed progress in challenging negative thinking regarding her ability to overcome these obstacles and identified improving healthy boundaries as a step she could take to decrease the negative impact of others on her emotion regulation. Client recommended continued IOP tx to further improve application of symptom management strategies and prevent decompensation. ] Narrative Note: []
--- NOTE | 2018-06-22 09:03 | BH.SGPN.GN ---
Behaviors/Verbalizations/Mental Status: [] Pt eye contact fair, casually dressed, motor activity appropriate, speech normal rate and tone, mood euthymic, congruent affect, thoughts linear and intact, no evidence of delusions or hallucinations. Reviewed client?s symptom tracker, no signs of suicidal ideation, plan, or intent as of today. Client Response/Progress/Benefit: []Pt attentive to others, provided feedback and support to peers. 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 Pt shared she was able to get up at 2:30am and was productive around the house. Pt expressed some rumination about being fired from her last job due to not being able to get along with certain workers. Pt reported she was able to challenge the thoughts last night. Pt identified feeling chill and relaxed today. Pt demonstrating progress AEB pt reframing thoughts in the moment. Pt to continue IOP level of care to maintain gains, improve daily functioning, and prevent decompensation. Narrative Note: []
--- NOTE | 2018-06-22 10:15 | BH.SGPN.GN ---
Behaviors/Verbalizations/Mental Status: []Client alert and oriented, dress casual, poor hygiene. Eye contact good. Motor activity appropriate. Speech rapid. Affect constricted, mood euthymic,anxious. Thoughts linear, logical, no signs of hallucinations or delusions Client Response/Progress/Benefit: []Client appeared to respond well to session, providing good insight. Client connected with the quote sharing, if you dont control your thinking your stress spirals out of control. Client discussed the impacts of stress emotionally, physically, mentally, and behaviorally. Client reported belief stress is sometimes helpful as it can motivate, however, if stress is not managed it can have negative impacts on mental health. Client identified shitty people, job, time management, self-esteem, and completing daily tasks as current stressors in her life. Client reported when she does not manage stress she has crying spells, increased impulsive behavior, and increased negative thinking. Client stated her stress jar is not overflowing as client is no longer at her old job that brought on so much stress. Client appeared to benefit from identifying current stressors and how stress impacts mental health. Client to continue IOP to prevent decompensation and increase emotional regulation.
--- NOTE | 2018-06-22 12:08 | BH.NA ---
Physical Data - Vital Signs Pulse Rate: 92 Respiratory Rate: 18 Blood Pressure: 135/70 - Height/Weight Height: 1.6 m Weight:: 129.274 kg Weight in Pounds: 285.0 lbs Current Medication Compliance - Medication Compliance Do you take your medication as prescribed?: Yes Do you need assistance with taking medication?: No Have you had side effects from medication?: No Nutritional History - Appetite Nutritional Instructions:: If client shows signs of a swallowing problem, weight change of 10 pounds or more in the last month, or is on a diabetic diet, the physician will review and request a dietitian consult, as appropriate. All unintentional weight loss will be referred to the physician for decision on need for dietitian consult. Describe your appetite:: Good Have you noticed a change in your eating habits lately?: No Functional Assessment - Sleep Pattern Describe any problems with sleeping: Client notes some sleep cycle disturbances associated with working 3rd shift, and some rumination - sleeps an average of 6 hours/day. - Activities Motor Activity:: Functional Sensory/Communication Assess - Hearing Problems Do you have any hearing problems?: Adequate - Communication Problems Do you have difficulty understanding what people are saying?: No Do you have trouble putting your thoughts into words or expressing what you want to say?: No Do people ever have trouble understanding what you say?: No What is your primary language?: Scottish Learning Assessment - Learning Barriers Learning Barriers:: Ready to learn Medical Problems/History - Cardiac Conditions Cardiovascular: Hypertension - Metabolic Conditions Metabolic: Diabetes, Hypothyroidism, Other (See comments) - polycystic ovarian sydrome - Pain Assessment Do you have acute or chronic pain?: No - Female Reproductive Do you think you may be ?: No Number of pregnancies:: 0 Have you reached menopause?: No Do you have any history of breast disease?: No Substance Abuse - Substance Abuse Please describe substance abuse in the last 30 days:: Rare/social ETOH use, no tobacco or substance use. Mental Status Summary - Mental Status Significant Findings/Observations on Appearance and Mood:: Rupa is an A&Ox4 27-year-old female, who is cooperative with interview. She exhibits appropriate hygiene and grooming, and is casually dressed. She makes good eye contact. Slightly hyperactive in chair. Speech is clear, slightly pressured, loud. Mild-moderate anxiety noted. Mood congruent affect. Logical associations and normal process. No symptoms of delusions. Chronic auditory and visual hallucinations. Chronic, but increasing, fleeting thoughts of suicide without intent or plan. Denies HI. Suicide Assessment - Suicidal Ideation Are you currently or have you been suicidal in the past?: Yes Suicidal Intentional Rating Scale (SIRS): Current suicidal thoughts/No plan/Contracts for safety Physician Notification: If Active suicidal thoughts/Will not contract for safety is checked, contact physician and document in the Physician Notification section below. Assault History/Potential - History of Assault Do you have a history of assaulting someone?: No Physician Notification: If yes, notify physician and document notification date and time below. Past Psychiatric History - MH Treatment Hx Past Psychiatric Medications:: Abilify, Lamictal, Latuda, Geodon, Fanapt Describe (age, circumstance, etc) any past hospitalizations: N/A Fall Risk Assessment - Age Age: Less than 60 - Mental Status Mental Status: Willing & able to ask for assistance when needed - Physical Status Physical Status: No problems - Impairments Impairments: None - Elimination Elimination: Continent AND independent - Gait or Balance Gait or Balance: Walks independently - Hx of Falls History of falls in the past 6 months: No known history - Medications/Substances Psychotropics:: Antipsychotics, Mood stabilizers Medications/substances used within the past 24 hours or ordered to administer: 1-2 of the medications/substances listed above - Total Score Total Points:: 1 Physician Notification - Physician Notification Physician Notified: Sandra Pearson Method of Notification: Face to Face Comments: treatment planning discussion RN Summary of Impressions - Impressions Recommendations: Include psychiatric and medical issues, treatment planning recommendations, and discharge planning needs. Impressions: Psychiatric Issues: schizoaffective disorder, Asperger's syndrome Impression: General Medical Conditions: DM2, PCOS, HTN, hypothyroid - Level of Care How do the client's current symptoms and functional deficits support need for this level of care?: Rupa notes that she has been decompensating for about 6 weeks, which she related to a trauma trigger that happended at work and caused her to lose her job. She has been having increased negative thoughts about herself and fleeting SI. She feels like a failure, but has gotten a new job. She has also been gaining weight. Rupa notes that she lives alone, but has local support consisting of her mom; her boyfriend lives in [place]. IOP will promote gains and prevent further decompensation.
--- NOTE | 2018-06-22 13:38 | PCM.HP.BLA ---
History and Physical Is an update to the history and physical of December 29, 2017 Identifying information Patient is a 27-year-old single female with history of schizoaffective disorder bipolar type who presents to the [facility] with chief complaint of I have issues with negative thinking and I want to learn tools. History is been obtained per interview with patient, discussion with staff, review of chart. Case discussed with treatment team. History of present illness Patient is a 27-year-old female with history of schizoaffective disorder bipolar type who previously participated in the [facility] in December 2017. She not complete the IOP program in December. She now returns to the program with increased mood symptoms and stressors. She continues to have some mood cycling. She reports some depressive symptoms 2 weeks ago. She notes her mood is euthymic this week. Denies current manic symptoms. Her psychiatric symptoms continued to interfere with functioning. 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 She reports a history of chronic passive suicidal thoughts running in the background. She denies current suicidal thinking. She states I am not going to act. She denies suicide plan or intent. No homicidal ideation. She has chronic auditory hallucinations. She states these are currently controlled. Denies command hallucinations. Her appetite is normal. She is sleeping between 6 and 10 hours per night. 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 She denies obsessions or compulsions. Past psychiatric history Schizoaffective disorder bipolar type. Possible history of learning disability. No previous hospitalizations or suicide attempts. Psychiatrist Dr. Quintanilla and counselor Ana Sorenson. Substance use history Denies smoking cigarettes Binge drinks alcohol once per month (a few drinks) Denies illicit drug use Past medical history Hypothyroidism Type 2 diabetes PCOS Hypertension Denies history of seizure Allergies-no known medical allergies Current medications [place] 600 mg twice daily Seroquel 500 mg nightly Effexor X are 75 mg every morning Klonopin 0.5 mg as needed daily Synthroid Metoprolol Family medical psychiatric history She reports undiagnosed mental illness in the family. Believes mother and father have both taken antidepressants. Developmental social history Born in [place]. Has a twin brother. Moved to [place] at age 3. Parents were . Moved to [place] for elementary and middle school. Moved back to [place] with her brother for high school. Graduated from high school and moved back to [place] in 2009. 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 Lives in an apartment alone. Mother and stepfather live in [place]. Legal history none Mental status exam Vital signs reviewed per nursing database and discussed with nursing. Alert and oriented . No acute distress. Ambulatory with normal gait and station. Appears stated age. Casually dressed and groomed. Appropriate hygiene. Cooperative with interview. Good eye contact. No psychomotor agitation or retardation. Mood euthymic and anxious. Affect congruent. Speech is clear and with regular rate and rhythm. Language fluent. Thought process organized. Associations logical. Thought content significant for ruminative anxiety. No suicidal or homicidal ideation related or detected. No symptoms consistent with psychosis noted or detected. Immediate recent and remote memory grossly intact. Attention and concentration are fair. Estimated intelligence and fund of knowledge average. Judgment and insight fair. Labs and testing Lab work will be requested from outpatient provider. Further lab work will be obtained as needed. Diagnosis Schizoaffective disorder bipolar type Anxiety unspecified Binge eating disorder by history Plan Admit to IOP as the structured setting is necessary to prevent decompensation. Risks benefits alternatives of medications discussed with patient. Patient acknowledges understanding. Continue lithium 600 mg p.o. twice daily, Seroquel 500 mg nightly, Effexor XR 75 mg daily, Klonopin 0.5 mg daily as needed. Request lithium level from outpatient provider. Further lab work to be obtained as needed. Encouraged follow-up with Dr. Quintanilla and Ana Sorenson. Encourage follow-up with primary care physician. 20 minutes of Insight oriented psychotherapy provided. Patient acknowledges understanding and is in agreement with plan. Feels able to maintain safety. Agrees to seek help or emergency care if feeling unsafe to self or others.
--- NOTE | 2018-06-22 14:00 | HP.PCM_ITS ---
History and Physical Is an update to the history and physical of December 29, 2017 Identifying information Patient is a 27-year-old single female with history of schizoaffective disorder bipolar type who presents to the [facility] with chief complaint of I have issues with negative thinking and I want to learn tools. History is been obtained per interview with patient, discussion with staff, review of chart. Case discussed with treatment team. History of present illness Patient is a 27-year-old female with history of schizoaffective disorder bipolar type who previously participated in the [facility] medicine [facility] in December 2017. She not complete the IOP program in December. She now returns to the program with increased mood symptoms and stressors. She continues to have some mood cycling. She reports some depressive symptoms 2 weeks ago. She notes her mood is euthymic this week. Denies current manic symptoms. Her psychiatric symptoms continued to interfere with functioning. 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 She reports a history of chronic passive suicidal thoughts running in the background. She denies current suicidal thinking. She states I am not going to act. She denies suicide plan or intent. No homicidal ideation. She has chronic auditory hallucinations. She states these are currently controlled. Denies command hallucinations. Her appetite is normal. She is sleeping between 6 and 10 hours per night. 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 She denies obsessions or compulsions. Past psychiatric history Schizoaffective disorder bipolar type. Possible history of learning disability. No previous hospitalizations or suicide attempts. Psychiatrist Dr. Quintanilla and counselor Ana Sorenson. Substance use history Denies smoking cigarettes Binge drinks alcohol once per month (a few drinks) Denies illicit drug use Past medical history Hypothyroidism Type 2 diabetes PCOS Hypertension Denies history of seizure Allergies-no known medical allergies Current medications [place] 600 mg twice daily Seroquel 500 mg nightly Effexor X are 75 mg every morning Klonopin 0.5 mg as needed daily Synthroid Metoprolol Family medical psychiatric history She reports undiagnosed mental illness in the family. Believes mother and father have both taken antidepressants. Developmental social history Born in [place]. Has a twin brother. Moved to [place] at age 3. Parents were . Moved to [place] for elementary and middle school. Moved back to [place] with her brother for high school. Graduated from high school and moved back to [place] in 2009. 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 Lives in an apartment alone. Mother and stepfather live in [place]. Legal history none Mental status exam Vital signs reviewed per nursing database and discussed with nursing. Alert and oriented . No acute distress. Ambulatory with normal gait and station. Appears stated age. Casually dressed and groomed. Appropriate hygiene. Cooperative with interview. Good eye contact. No psychomotor agitation or retardation. Mood euthymic and anxious. Affect congruent. Speech is clear and with regular rate and rhythm. Language fluent. Thought process organized. Associations logical. Thought content significant for ruminative anxiety. No suicidal or homicidal ideation related or detected. No symptoms consistent with psychosis noted or detected. Immediate recent and remote memory grossly intact. Attention and concentration are fair. Estimated intelligence and fund of knowledge average. Judgment and insight fair. Labs and testing Lab work will be requested from outpatient provider. Further lab work will be obtained as needed. Diagnosis Schizoaffective disorder bipolar type Anxiety unspecified Binge eating disorder by history Plan Admit to IOP as the structured setting is necessary to prevent decompensation. Risks benefits alternatives of medications discussed with patient. Patient acknowledges understanding. Continue lithium 600 mg p.o. twice daily, Seroquel 500 mg nightly, Effexor XR 75 mg daily, Klonopin 0.5 mg daily as needed. Request lithium level from outpatient provider. Further lab work to be obtained as needed. Encouraged follow-up with Dr. Quintanilla and Ana Sorenson. Encourage follow-up with primary care physician. 20 minutes of Insight oriented psychotherapy provided. Patient acknowledges understanding and is in agreement with plan. Feels able to maintain safety. Agrees to seek help or emergency care if feeling unsafe to self or others.
--- NOTE | 2018-06-22 14:01 | BH.DR.ITP ---
Initial Treatment Plan - Patient Information Visit Information: ADMISSION DATE: EXPECTED LOS: 4-6 weeks Diagnoses:: Schizoaffective disorder bipolar type F 25.0 - Problems/Symptoms Problem #1:: Mood instability Symptom:: Depression, sad mood, irritability, chronic suicidal ideation Problem #2:: Anxiety Symptom:: Rumination
--- NOTE | 2018-08-03 15:45 | BH.NA_ITS ---
Physical Data - Vital Signs Pulse Rate: 92 Respiratory Rate: 18 Blood Pressure: 135/70 - Height/Weight Height: 1.6 m Weight:: 129.274 kg Weight in Pounds: 285.0 lbs Current Medication Compliance - Medication Compliance Do you take your medication as prescribed?: Yes Do you need assistance with taking medication?: No Have you had side effects from medication?: No Nutritional History - Appetite Nutritional Instructions:: If client shows signs of a swallowing problem, weight change of 10 pounds or more in the last month, or is on a diabetic diet, the physician will review and request a dietitian consult, as appropriate. All unintentional weight loss will be referred to the physician for decision on need for dietitian consult. Describe your appetite:: Good Have you noticed a change in your eating habits lately?: No Functional Assessment - Sleep Pattern Describe any problems with sleeping: Client notes some sleep cycle disturbances associated with working 3rd shift, and some rumination - sleeps an average of 6 hours/day. - Activities Motor Activity:: Functional Sensory/Communication Assess - Hearing Problems Do you have any hearing problems?: Adequate - Communication Problems Do you have difficulty understanding what people are saying?: No Do you have trouble putting your thoughts into words or expressing what you want to say?: No Do people ever have trouble understanding what you say?: No What is your primary language?: Marshallese Learning Assessment - Learning Barriers Learning Barriers:: Ready to learn Medical Problems/History - Cardiac Conditions Cardiovascular: Hypertension - Metabolic Conditions Metabolic: Diabetes, Hypothyroidism, Other (See comments) - polycystic ovarian sydrome - Pain Assessment Do you have acute or chronic pain?: No - Female Reproductive Do you think you may be ?: No Number of pregnancies:: 0 Have you reached menopause?: No Do you have any history of breast disease?: No Substance Abuse - Substance Abuse Please describe substance abuse in the last 30 days:: Rare/social ETOH use, no tobacco or substance use. Mental Status Summary - Mental Status Significant Findings/Observations on Appearance and Mood:: Rupa is an A&Ox4 27- year-old female, who is cooperative with interview. She exhibits appropriate hygiene and grooming, and is casually dressed. She makes good eye contact. Slightly hyperactive in chair. Speech is clear, slightly pressured, loud. Mild -moderate anxiety noted. Mood congruent affect. Logical associations and normal process. No symptoms of delusions. Chronic auditory and visual hallucinations. Chronic, but increasing, fleeting thoughts of suicide without intent or plan. Denies HI. Suicide Assessment - Suicidal Ideation Are you currently or have you been suicidal in the past?: Yes Suicidal Intentional Rating Scale (SIRS): Current suicidal thoughts/No plan/ Contracts for safety Physician Notification: If Active suicidal thoughts/Will not contract for safety is checked, contact physician and document in the Physician Notification section below. Assault History/Potential - History of Assault Do you have a history of assaulting someone?: No Physician Notification: If yes, notify physician and document notification date and time below. Past Psychiatric History - MH Treatment Hx Past Psychiatric Medications:: Abilify, Lamictal, Latuda, Geodon, Fanapt Describe (age, circumstance, etc) any past hospitalizations: N/A Fall Risk Assessment - Age Age: Less than 60 - Mental Status Mental Status: Willing & able to ask for assistance when needed - Physical Status Physical Status: No problems - Impairments Impairments: None - Elimination Elimination: Continent AND independent - Gait or Balance Gait or Balance: Walks independently - Hx of Falls History of falls in the past 6 months: No known history - Medications/Substances Psychotropics:: Antipsychotics, Mood stabilizers Medications/substances used within the past 24 hours or ordered to administer: 1 -2 of the medications/substances listed above - Total Score Total Points:: 1 Physician Notification - Physician Notification Physician Notified: Sandra Pearson Method of Notification: Face to Face Comments: treatment planning discussion RN Summary of Impressions - Impressions Recommendations: Include psychiatric and medical issues, treatment planning recommendations, and discharge planning needs. Impressions: Psychiatric Issues: schizoaffective disorder, Asperger's syndrome Impression: General Medical Conditions: DM2, PCOS, HTN, hypothyroid - Level of Care How do the client's current symptoms and functional deficits support need for this level of care?: Rupa notes that she has been decompensating for about 6 weeks, which she related to a trauma trigger that happended at work and caused her to lose her job. She has been having increased negative thoughts about herself and fleeting SI. She feels like a failure, but has gotten a new job. She has also been gaining weight. Rupa notes that she lives alone, but has local support consisting of her mom; her boyfriend lives in [place]. IOP will promote gains and prevent further decompensation.
[2018-08-10 09:45] VITALS: BP 135/70; PULSE 92; RESP 18
== END 2018-06-26 23:59 ==
LOC: BHIOP 08:30
PROVIDERS: Visit Provider Psychiatry & Neurology Psychiatry
DX: F25.0 Schizoaffective disorder, bipolar type (principal); F41.9 Anxiety disorder, unspecified; F50.81 Binge eating disorder; Z79.899 Other long term (current) drug therapy; E03.9 Hypothyroidism, unspecified; E11.9 Type 2 diabetes mellitus without complications; I10 Essential (primary) hypertension; E28.2 Polycystic ovarian syndrome
CPT/HCPCS: 90833; 99214; H0035; H2012; H2020; 90832

== ENCOUNTER 2018-06-27 09:00 | Outpatient (RCR) | payer MEDICAID, SELFPAY ==
--- NOTE | 2018-06-27 09:05 | BH.SGPN.GN ---
Behaviors/Verbalizations/Mental Status: []Client alert and oriented, dress casual, hygiene poor. Eye contact good. Motor activity restless, moving in chair and leaving and entering session a few times. Speech rapid, making noises at times. Affect constricted, mood irritable, anxious. Thoughts linear, logical, no signs of hallucinations or delusions. Reviewed clients symptom tracker, no risk for suicidal ideation, plan, or intent as of 06/27/18. Client Response/Progress/Benefit: []Client responded somewhat well to session. At the beginning of session client was providing support to peers, but then become irritable and anxious as some group members where sharing longer than others. Client processed her frustration in session and recognized I need to be better with patience. Client reports feeling tired today as client just started her new, 3rd shift, job this week. Client reported she is enjoying the job so far and is happy about it. Client shared she has conflicting feelings about her father's birthday coming up and what client should do. Client processed her emotions with the group and was receptive to ideas from the group on how to maintain boundaries while showing she cares. Client appeared to benefit from gaining ideas from peers and from processing in the moment frustration. Client continues to struggle with managing irritability, discomfort, and navigating social situations. Client to continue IOP to prevent decompensation and increase mood stability.
--- NOTE | 2018-06-27 10:18 | BH.SGPN.GN ---
Behaviors/Verbalizations/Mental Status: [Client alert and orient x3, maintained clear and consistent eye contact, casually dressed, motor activity restless though client did well to manage this through use of doodling or taking notes, speech normal rate and tone - at times interrupting fellow participants or providing off topic comments, mood euthymic, anxious, affect congruent, thoughts linear and logical - at times significant for mind reading or personalizing others comments, no evidence of delusions or hallucinations.] Client Response/Progress/Benefit: [Client responded well to session, provided positive feedback and insights to the group. She did well to remain actively engaged in the activity as well as processing discussion afterward. CLient indicated connecting well with the topic of pitfalls and identified that she often falls into pitfalls when struggling to know how to react to negative comments or toxic people. Client was able to actively engage in the activity portion of the group and appeared to benefit from challenging herself to listen to the ideas and suggestions provided by fellow participants. She displayed progress in her ability to make connections between needing to slow down before reacting in the activity with her need to slow down and take a step back to process before reacting to things in her own life. CLient is recommended continued IOP tx in order to maintain stability, improve mental health awareness, and increase application of effective communication strategies being learned.] Narrative Note: []
--- NOTE | 2018-06-27 11:19 | BH.SGPN.GN ---
Behaviors/Verbalizations/Mental Status: [Client alert and orient x3, maintained consistent eye contact, casually dressed - wering a skirt as opposed to usual sweats, motor activity restless - at times displaying lack of body awareness and appropriate social etiquette AEB yawning and stretching or standing during group discussion, speech normal rate and tone, mood euthymic, congruent affect, thoughts linear and logical - some ruminative characteristics, no evidence of delusions or hallucinations.] Client Response/Progress/Benefit: [Client responded well to session and was actively engaged throughout. She did well to relate to follow participants as they discussed various personal pitfalls in the impact they have these may have on mental health symptoms. She identified her own pitfalls as: Toxic people, isolation, catastrophize and, negative thinking patterns and cognitive distortions, poor self-esteem, purposefully thinking negatively so that nothing/nobody lets me down. Client benefited from challenging herself to work with fellow participants in identifying healthy strategies for coping with and avoiding falling into identified pitfalls. She was able to identify the following potential solutions: Create balance with self-care, establishing a daily routine that is not super rigid, reminding myself to do things I enjoy, improving personal and emotional boundaries, and communicating my warning signs, triggers, and expectations with supports. Client displaying progress in her ability to make connections between content discussed in session and how this may apply to her own treatment progress. She is recommended continued IOP treatment in order to maintain stability and improve her ability to manage emotions and mental health symptoms during times of increased stress.] Narrative Note: []
--- NOTE | 2018-06-28 09:03 | BH.SGPN.GN ---
Behaviors/Verbalizations/Mental Status: []Pt alert and oriented. Casually dressed and appropriately groomed. Mood euthymic and anxious, affect constricted. Speech tone and rate WNL. Thoughts linear and logical. Motor activity appropriate. No evidence of delusions or hallucinations. Reviewed clients symptom tracker, no risk for suicidal ideation, plan, or intent as of 06/28/18. Client Response/Progress/Benefit: []Pt reported feeling tired due to still adjusting to her third shift schedule. Pt shared she is enjoying work because she has one specific job to complete with limited interaction with others which pt is hopeful she won't have the same issues she had at previous job. Pt reported her dad's birthday is coming up and she is feeling some guilt for not being excited about celebrating dad's birthday. Pt shared she doesn't have a great relationship with her father, but plans to send a birthday card which pt reported is all I am comfortable doing currently. Pt demonstrating progress with reporting improved mood stability and challenging negative thoughts. Pt to continue IOP to maintain gains and prevent decompensation. Narrative Note: []
--- NOTE | 2018-06-28 10:07 | BH.SGPN.GN ---
Behaviors/Verbalizations/Mental Status: []Client alert and oriented, dress disheveled, hair looked unwashed. Eye contact good. Motor activity appropriate. Speech within normal limits. Affect congruent, mood anxious, irritable. Thoughts linear, logical, no signs of hallucinations or delusions. Client Response/Progress/Benefit: []Client responded well to session, active in discussion and participating in the activity. Client connected with the quote sharing, our cognitive distortions create doubt that keep us from trying things. Client participated in the discussion of failure, and the impact fear of failure has on ones mental health. Client stated fear of failure comes from negative thoughts, past mistakes, and toxic people. Client reported if one does not overcome fear of failure it can cause low self-esteem. Client shared if she did not have fear of failure she would go back to school. Client connected the activity to failures in life, sharing sometimes you freeze because you don't want to make a mistake. Client appeared to benefit from increasing awareness of how fear of failure impacts mental health. Client seems to be progressing as shown by her increased self-awareness, but continues to struggle with challenging negative thoughts and managing reactions in social situations.
--- NOTE | 2018-06-28 14:30 | BH.MDN ---
Multi-Disciplinary Note - Note 45-min Individual Time Started:: 08:17 Date: 06/28/18 Purpose of session/treatment goals addressed:: The purpose of this session was to address client's current stressors, symptoms, and triggers. Another goal was to discuss cognitive distortions and emotional regulation skills. Other topics included: conflict resolution, acceptance, and challenging perspective. Eye Contact:: Good Motor Activity:: Restless, Other - Client appears to lack body awareness when interacting in individual and group settings as she yawned, stretched, and freely moved about without attention to social ques. Appearance:: Disheveled - hair unkempt Speech:: Rapid Mood:: Anxious, Irritable Affect:: Constricted Thoughts:: Circular, No evidence of hallucinations/delusions noted Staff Interventions:: Therapist used active listening and open-ended questions to explore client's current stressors, symptoms, and triggers. Therapist provided client a safe place to process her emotions from a triggering situation. Therapist gently challenged client on cognitive distortions and people pleasing. Therapist used radical acceptance to help client cope with a stressor out of her control and taught client various strategies to challenging negative thinking. Therapist addressed client's recent irritability during group and helped client increase awareness of warning signs. Therapist and client created a plan to improve emotional regulation during group sessions. Therapist encouraged client to practice these coping skills daily. Client Response:: Client responded well to session, open to meeting with therapist. Client shared she was triggered today after finding out a person who she once had conflict with may be starting IOP. Client reported I thought I moved past it, but now I'm having the negative thoughts again. Client and therapist processed the trigger and thoughts and after client was able to recognize I can't do anything to change it, and I know I didn't do anything wrong. Client stated she has ongoing challenges with negative thinking where client will label herself stupid, should, and mind-read. Client receptive to discussing cognitive distortions and strategies to challenge and reframe these thoughts. Client reported connecting with looking at the evidence and thoughts are just thoughts. Client stated she also liked the idea of acceptance, as client self-reports difficulty with coping with stressors out of her control. Client responded well when therapist addressed recent irritability issues in group. Client reported awareness that she was becoming increasingly anxious and irritated, but felt unable to stop it. Client and therapist discussed emotional regulation strategies such as deep breathing, mindfulness, walking, journaling, and challenging negative thoughts. Client agreed to start practicing these strategies at home and at IOP. Risks/Concerns:: Client denies suicidal ideation, plan, and intent as of 06/28/18. Client reports ability to maintain safety and is aware of the crisis resources should she feel unsafe. Progress Toward Goals/Plan:: Client progressing towards treatment goals as evidenced by her report of identifying and catching cognitive distortions. Client also seems to be progressing with recognizing the connection between thoughts, feelings, and behaviors. Client continues to struggle with managing emotions and stressors out of her control. Client also reports ongoing challenges with irritability and anxiousness when people talk too much or things don't go as planned which has been an issue at times during group. Client can continue to benefit from ongoing work on emotional regulation to increase mood stability and social functioning. Client to continue IOP to prevent decompensation and improve use of coping skills. Time Stopped:: 09:00
--- NOTE | 2018-06-29 09:05 | BH.SGPN.GN ---
Behaviors/Verbalizations/Mental Status: []Client alert and oriented, neatly dressed and groomed. Eye contact good. Motor activity restless, getting up from her chair at times, stretching, yawning. Speech within normal limits. Affect congruent, mood euthymic. Thoughts linear, logical, no signs of hallucinations or delusions. Reviewed clients symptom tracker, no risk for suicidal ideation, plan, or intent as of 06/29/18. Client Response/Progress/Benefit: []Client responded well to session, providing supportive statements to peers. Client reports feeling energetic, but in a healthy way today. Client stated she got good sleep yesterday and has been enjoying her job. Client shared yesterday she had some racing negative thoughts, but she was able to take the reins and actually combat them. Client also identified sleeping well and learning from her mistakes this week as a positive. Client reported she continues to struggle with challenging negative thinking regarding a past incidence at work. Client appeared to benefit from reflecting on her positives and connecting with peers. Progress noted as evidenced by her report of actively using thought challenging, but continues to struggle with emotional regulation and appropriate social responses. Client to continue IOP to prevent decompensation increase emotional regulation.
--- NOTE | 2018-06-29 10:18 | BH.SGPN.GN ---
Behaviors/Verbalizations/Mental Status: [Client alert and orient x3, maintained fair eye contact, casually dressed in a alexis t-shirt and sweats, motor activity restless with apparent lack of social awareness AEB Client walking around room and going through the fridge, yawning, and farting in the middle of the group discussion. Her speech normal rate and tone, mood euthymic, congruent affect, thoughts linear and logical, no evidence of delusions or hallucinations.] Client Response/Progress/Benefit: [Client responded well to session and was engaged throughout. She did well to interact with fellow participants during the discussion regarding identifying and being goals for one's own mental health in order to remove promote progress and symptom management. Client did well to identify various reasons why we may struggle with achieving the personal goals with that. Client discussed often struggling to follow through or give up if she feels she is going to fail. She appeared to benefit from connecting with shared experiences discussed by fellow participants as well as challenging herself to apply goal setting strategies discussed in the activity portion. Overall client was an asset to the group however at times struggled with appropriate socialization such as not excusing herself when needing to far or burp. Displaying progress in her ability to internalize and apply treatment concepts. Client recommended continued iop to improve healthy communication with others and emotion regulation skills as well as to prevent decompensation.] Narrative Note: []
--- NOTE | 2018-06-29 11:27 | BH.SGPN.GN ---
Behaviors/Verbalizations/Mental Status: [Client alert and orient x3, maintained good eye contact throughout - at times looking away due to being distracted by self and other items in the room, casually dressed - wearing sweats, motor activity restless AEB client shifting in chair and moving throughout the room-however lest restless than previous session. Her speech was normal rate and tone, mood euthymic and engaged, congruent affect, thoughts linear and logical, no evidence of delusions or hallucinations.] Client Response/Progress/Benefit: [Active participant throughout and did well to provide more pertinent input to discussion rather than off topic comments. Client appeared to benefit from working with the group on identifying potential solutions for overcoming various obstacles she may encounter when applying smart goal criteria to her own mental health goals. Client indicated wanting to improve positive outlook by working on 1 negative or distorted thought pattern via thought challenging journal over the weekend. She appears to be making progress in her ability to identify concrete ways in which IOP treatment skills and materials discussed can relate to client's own management of mental health symptoms. Client recommended continued IOP treatment in order to improve consistent application of emotion regulation and stress management skills as well as to prevent decompensation.] Narrative Note: []
--- NOTE | 2018-07-03 13:50 | BH.COMM ---
Communication Note - Communication with Client Communication Note: Client called to cancel her scheduled individual session this morning. Client also canceled her scheduled IOP session yesterday, 07/02/18. Client reported she had canceled due to an eye infection, but also due to feeling high stress from work. Client shared I'm just so stressed I don't know if I should come in this week. With therapist elicitation, client recognized that group benefits client and reduces stress, so it would be helpful for client to attend at least once this week. Therapist processed emotions with client and helped client identify healthy coping strategies and communication skills. Client agreed to attend group tomorrow 07/04/18. Therapist discussed the attendance policy with client and encouraged client to use healthy coping.
--- NOTE | 2018-07-04 09:05 | BH.SGPN.GN ---
Behaviors/Verbalizations/Mental Status: []Pt alert and oriented. Casually dressed and appropriately groomed. Mood irritable, depressed, affect constricted. Agitated tone. Motor activity restless. No evidence of delusions or hallucinations. Reviewed clients symptom tracker, no risk for suicidal ideation, plan, or intent as of 07/04/18. Client Response/Progress/Benefit: []Pt appeared restless as evidenced by moving in seat often and making exasperated noises. Pt was asked if she'd like to check-in, but was insistent there wasn't enough time. Despite therapist encouraging pt to share, pt reported no one cares, I'm fucking invisible to everyone. At time time group session was ended and group IOP therapist worked with pt to de-escalate. Pt's individual IOP therapist informed of situation and met with pt individually to problem solve and process situation. Narrative Note: []
--- NOTE | 2018-07-04 11:24 | BH.SGPN.GN ---
Behaviors/Verbalizations/Mental Status: [Client alert and orient x3. She maintained good eye contact, casually dressed, motor activity restless-often moving around the room, shifting in seat, stretching, speech normal rate and tone, mood euthymic -at times irritable when seeking clarification regarding materials discussed, affect congruent, thoughts linear and logical, no evidence of delusions or hallucinations.] Client Response/Progress/Benefit: [Client responded well to session and was able to remain engaged-more appropriate interaction with fellow participants and on topic throughout discussion portion. Client discussed often struggling to identify her warning signs prior to crisis escalation as she feels as though she quickly escalates; however, did well to identify warning signs during the discussion. Client indicated some of her warning signs to include getting increasingly restless and agitated, pacing, and stress eating or verbal outbursts. Client appeared to make several connections with another participant in the group who discussed also becoming physically restless prior to crisis situation. She appeared to benefit from being able to identify shared warning signs and experiences as well as within the small group to identify potential solutions for crisis management and prevention. Client made progress in her ability to creatively problem solve potential barriers and complete the crisis management kit activity. She indicated placing a heart to remind her of her positive supports and a green possible in her bag as the color green makes client feel positive and will remind her to challenge negative thoughts. Recommended continued IOP treatment in order to continue to maintain stability and improve client emotion regulation skills.] Narrative Note: []
--- NOTE | 2018-07-04 12:29 | BH.MDN ---
Multi-Disciplinary Note - Note 30-min Individual Time Started:: 10:32 Date: 07/04/18 Purpose of session/treatment goals addressed:: The purpose of this session was to process client's current stressors, symptoms, and outburst from process group today. Another goal was to discuss cognitive distortions and emotional regulation skills. Eye Contact:: Fair Motor Activity:: Restless Appearance:: Disheveled - clothing appropriate, hair seemed unwashed. Speech:: Tangential - Not for the entire duration of the session, but occasionally., Rapid Mood:: Anxious, Irritable Affect:: Congruent Thoughts:: Circular, No evidence of hallucinations/delusions noted Staff Interventions:: Therapist used active listening and scaling questions to gather information on client's current stressors and symptoms. Therapist explored triggers to client's outburst during group and helped client process her emotions and the situation. Therapist helped client challenge negative thoughts and identify strategies to prevent outbursts in the future. Therapist used strengths-perspective to help client reframe and identify positives. Therapist discussed how emotional regulation impacts various areas of life and gave client homework to start tracking her moods to increase emotional regulation. Client Response:: Client responded well to session, open to meeting with therapist. Client shared this morning when she arrived to group she felt anxious and some irritability from work which client then projected on peers. Client reported she was triggered due to time constraints in group and feeling invisible. With therapist elicitation, client recognized she was having some distorted thoughts. Client reported feeling sorry for getting upset with others during group and shared plan to apologize. Client shared she feels less anxious and irritable after processing the situation with this therapist and another [facility] therapist. Client shared recently she has been feeling upset at work due to high expectations and feeling unsupported by her co-workers. Client stated, I don't know what it is about me, but I'm always feeling stuck at work...like I can't keep up. Client reported she has had a hard time maintaining jobs in the past and with further exploring, client connected part of the reason may be client's negative thinking, high expectations, and not regulating emotions. Client was receptive to using scales and journaling for anxiety and irritability to help client increase awareness of the intensity of her emotions, so client can begin to implement coping skills to prevent escalation or reduce intensity. Client and therapist discussed the benefits of early intervention such as taking a break and deep breathing when client first starts recognizing physical signs of irritability or anxiety. Client reported I thought maybe I should take a break this morning, but I didn't want to be rude and then I got worse. After processing cognitive distortions and the benefits of self-regulation, client shared feeling more confident to use internal coping skills in group to regulate emotions. Risks/Concerns:: Client denies suicidal ideation, plan, and intent as of 07/04/18. Client reports her fiance as a reason to live. Progress Toward Goals/Plan:: Client continues to struggle with implementing in the moment emotional regulation skills as evidenced by her report of projecting my emotions on others this morning. However, client is making progress with recognizing cognitive distortions and unhealthy coping skills. Client also demonstrated progress today by coming to group despite wanting to cancel due to anxiety yesterday. Client to continue IOP to prevent decompensation and increase mood stability. Client also to start tracking her moods daily and journaling to increase self-awareness and emotional regulation. Time Stopped:: 11:04
--- NOTE | 2018-07-04 12:54 | BH.MDN_ITS ---
Multi-Disciplinary Note - Note 30-min Individual Time Started:: 10:32 Date: 07/04/18 Purpose of session/treatment goals addressed:: The purpose of this session was to process client's current stressors, symptoms, and outburst from process group today. Another goal was to discuss cognitive distortions and emotional regulation skills. Eye Contact:: Fair Motor Activity:: Restless Appearance:: Disheveled - clothing appropriate, hair seemed unwashed. Speech:: Tangential - Not for the entire duration of the session, but occasionally., Rapid Mood:: Anxious, Irritable Affect:: Congruent Thoughts:: Circular, No evidence of hallucinations/delusions noted Staff Interventions:: Therapist used active listening and scaling questions to gather information on client's current stressors and symptoms. Therapist explored triggers to client's outburst during group and helped client process her emotions and the situation. Therapist helped client challenge negative thoughts and identify strategies to prevent outbursts in the future. Therapist used strengths-perspective to help client reframe and identify positives. Therapist discussed how emotional regulation impacts various areas of life and gave client homework to start tracking her moods to increase emotional regulation. Client Response:: Client responded well to session, open to meeting with therapist. Client shared this morning when she arrived to group she felt anxious and some irritability from work which client then projected on peers. Client reported she was triggered due to time constraints in group and feeling invisible. With therapist elicitation, client recognized she was having some distorted thoughts. Client reported feeling sorry for getting upset with others during group and shared plan to apologize. Client shared she feels less anxious and irritable after processing the situation with this therapist and another [facility] therapist. Client shared recently she has been feeling upset at work due to high expectations and feeling unsupported by her co-workers. Client stated, I don't know what it is about me, but I'm always feeling stuck at work...like I can't keep up. Client reported she has had a hard time maintaining jobs in the past and with further exploring, client connected part of the reason may be client's negative thinking, high expectations, and not regulating emotions. Client was receptive to using scales and journaling for anxiety and irritability to help client increase awareness of the intensity of her emotions , so client can begin to implement coping skills to prevent escalation or reduce intensity. Client and therapist discussed the benefits of early intervention such as taking a break and deep breathing when client first starts recognizing physical signs of irritability or anxiety. Client reported I thought maybe I should take a break this morning, but I didn't want to be rude and then I got worse. After processing cognitive distortions and the benefits of self-regulation, client shared feeling more confident to use internal coping skills in group to regulate emotions. Risks/Concerns:: Client denies suicidal ideation, plan, and intent as of . Client reports her fiance as a reason to live. Progress Toward Goals/Plan:: Client continues to struggle with implementing in the moment emotional regulation skills as evidenced by her report of projecting my emotions on others this morning. However, client is making progress with recognizing cognitive distortions and unhealthy coping skills. Client also demonstrated progress today by coming to group despite wanting to cancel due to anxiety yesterday. Client to continue IOP to prevent decompensation and increase mood stability. Client also to start tracking her moods daily and journaling to increase self-awareness and emotional regulation. Time Stopped:: 11:04
--- NOTE | 2018-07-11 14:55 | BH.COMM ---
Communication Note - Communication with Client Communication Note: Client left a message for behavioral health staff stating client wishes to discharge from [facility] at this time due to work schedule conflicts. Client stated in the message she would like to come in on Monday to say goodbye. This therapist attempted to call client, but she did not answer. Client to be discharged from [facility] as of 07/11/18.
--- NOTE | 2018-07-11 14:58 | BH.DS_ITS ---
Discharge Summary - Demographics Date of Admission:: 06/19/18 Discharge Date: 07/11/18 Presenting Problems at Admission:: Client is a 27-year-old female with history of schizoaffective disorder bipolar type who presented to [facility] due to increased mood symptoms and stressors. At admission, client shared her psychiatric symptoms continued to interfere with functioning at home and work. Client reported depressive symptoms two weeks prior to admission including passive suicidal thoughts, crying spells, and irritability. Client denied current manic symptoms at admission. Client endorsed chronic auditory hallucinations that per client?s report are currently controlled. At admission, client endorsed ruminative anxiety, negative thinking, irritability, some isolation, and mood cycling. Discharge Diagnoses:: Schizoaffective disorder bipolar type F 25.0; Anxiety unspecified; Binge eating disorder by history Reason for Discharge:: Client voluntarily discharged from [facility] after 7 sessions of attendance due to work schedule conflicts as client went from working third shift to working second shift. Client unable to commit to program attendance requirements at this time. Due to early discharge, discharge surveys and handouts were not completed. [facility] and client was encouraged to follow up with her outpatient providers. - Treatment Progress During Treatment & Response: Client progress towards treatment goals limited due to inconsistent attendance as client only able to attend 7 sessions prior to discharge. Client?s inconsistent attendance impacted client?s ability to make significant changes in increasing mood stability, gaining emotional regulation skills, challenging distorted thought patterns, and improving self- esteem. During the sessions client attended, client seemed to respond well in both individual and group sessions, actively providing good insight to the discussion and participating in the activities. During individual sessions client reported high levels of motivation to change, was receptive to homework given by therapist, and seemed to have good insight into current symptoms, distorted thoughts, and difficulties navigating social situations. Client did have two incidents where she had a hard time regulating her emotions and became irritable and ?projected? her emotions on peers during group sessions. After both situations client was able to process her emotions and identify ways she could improve her in the moment coping. Issues Still to be Addressed:: Due to client not accomplishing her treatment goals, client would benefit from continued work on improving mood stability to improve social, occupational, and relational functioning by increasing emotional regulation skills when client begins to recognize warning signs. Client appeared to have good insight of her distorted thought patterns, but often reported having a hard time challenging them without the help of a support person, which lead to rumination. Client could benefit from ongoing work on increasing internal coping skills to replace negative thoughts and increase self-esteem. Client reported work is a primary stressor due to ineffective communication in the workplace and client feeling pressured to meet high standards, which could present as a concern post discharge as client is continuing to work without increasing use of effective communication strategies or implementation of calming techniques to manage emotions. Discharge Recommendations/Instructions:: Client recommended to follow up with individual therapist, Dr. Ana Sorenson, and psychiatrist, Dr[facility] Camilo, [facility] for [facility] and medication management. At last individual counseling appointment on 07/04/18, client reported belief she had an appointment with Dr. Sorenson this week. Client was also recommended to follow up with employment services at [facility] to receive case management and advocacy to promote functioning at client's current job. Discharge Handout: Complete Discharge Handout with client on aftercare options and continuity of care.
== END 2018-07-11 14:00 | disposition home or self-care (01) ==
LOC: BHIOP 09:00
PROVIDERS: Visit Provider Psychiatry & Neurology Psychiatry
DX: F25.0 Schizoaffective disorder, bipolar type (principal); F41.9 Anxiety disorder, unspecified; F50.81 Binge eating disorder; Z79.899 Other long term (current) drug therapy
CPT/HCPCS: H0035; H2012; H2020; 90832; 90834; 90853

== ENCOUNTER 2019-10-29 18:16 | Emergency (ER) | payer MEDICAID, SELFPAY ==
[2019-10-29 18:18] VITALS: BP 128/74; PULSE 95; RESP 18; TEMP 36.8; O2SAT 98; BMI 45.1
[2019-10-29 20:27] VITALS: BP 139/86; PULSE 94; RESP 17; O2SAT 96; O2SAT 98
--- NOTE | 2019-10-29 20:49 | CT_ITS ---
STUDY: CT BRAIN WITHOUT CONTRAST REASON FOR EXAM: Female, 28 years old. Trauma, no loss of consciousness RADIATION DOSAGE (If Supplied By Facility): CTDIvol = ( 44.99 ) mGy, DLP = ( 745.49 ) mGycm TECHNIQUE: Transaxial CT imaging of the brain was performed without administration of intravenous contrast material. Individualized dose optimization techniques were used for this CT. COMPARISON: Report of previous study of January 15, 2013 FINDINGS: Normal soft tissue structures. Normal calvarium. Normal size ventricles and extra-axial spaces for the patient's age. Normal white matter tracts of the cerebral hemispheres. Normal basal ganglia and thalami. Normal brainstem. Normal cerebellum. There is no intracranial hemorrhage. There are no findings of an acute ischemic infarction. Normal visualized paranasal sinuses. CT/Brain/Head without Contrast IMPRESSION: Normal unenhanced CT scan of the brain. Electronically Signed: Jason Cole MD at 21:41 EST , Service support ,
--- NOTE | 2019-10-29 20:53 | ED.VIS.GEN ---
History of Present Illness Chief Complaint: Fall Informant: Patient, Family Onset: Today Narrative: Patient is a very poor historian and states that she feels a little disoriented. She has schizoaffective disorder and takes multiple medications for it, and starts by saying 1 or 2 days ago, she went out drinking with some friends and when she does that she skips a couple of her medications so that she does not become somnolent/lethargic. However, she states then she might have accidentally forgotten to take her medicines a couple of other times. She went to work today, and remembers feeling dizzy that was worse whenever she would turn or change position. 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 She remembers losing her balance and falling out of the chair and does not think she injured herself and does not think she passed out but it was suspected by coworkers to call 911 and brought her to the emergency room. Her blood sugar was in the 200s prior to arrival. She is a bao-[id number]-[id number] type II diabetic on metformin, glipizide, Actos. She denies any recent upper respiratory infections, or one coexisting now. No earache, tinnitus, discharge, changes in hearing but she was having visual disturbance throughout her visual field that is not there now. Denies diplopia. No chest pain or shortness of breath or other illness recently. No nausea or vomiting. She denies any neck pain or stiffness. No other focal neurologic symptoms in her extremities. She states she was feeling lightheaded and spinning. - Past Medical History (1) Schizoaffective disorder Status: Chronic (2) Type 2 diabetes mellitus Status: Chronic (3) GERD (gastroesophageal reflux disease) Status: Chronic Past Medical History - Allergies and Home Meds Allergies/Adverse Reactions: Allergies No Known Allergies Allergy (Verified 03/02/17 19:35) Primary Care Physician: Jenn Chicas MD [Primary Care Provider] - Lives: Alone Smoking Status: Never smoker Alcohol: Occasional Review of Systems General: Reports: Malaise. Denies: Chills, Fever, Sweats Eyes: Reports: Visual changes - bilaterally. Denies: Diplopia ENT: Denies: Rhinorrhea, Sore throat Cardiovascular: Denies: Chest pain, Palpitations Respiratory: Denies: Dyspnea, Cough, Dyspnea on exertion Gastrointestinal: Denies: Abdominal pain, Nausea, Vomiting, Diarrhea, Melena, Hematochezia Genitourinary: Denies: Dysuria, Hematuria, Frequency Musculoskeletal: Denies: Neck pain, Back pain, Swelling, Extremity Pain Skin: Denies: Rash, Wounds Neurological: Reports: Headache - Earlier, resolved now, - - Dizziness, disorientation. See HPI.. Denies: Weakness, Numbness Physical Exam Vital Signs/Narrative: Vital Signs Temp Pulse Resp BP Pulse Ox 10/29/19 20:27 94 17 139/86 H 98 10/29/19 18:18 98.2 F 95 18 128/74 H 98 Inital Vital Signs reviewed: Yes General: Well nourished, Well developed, Obese, No Acute Distress Head: Normocephalic, Atraumatic Eyes: Perrl, EOMI ENT: Moist mucous membranes, No rhinorrhea, TM's clear. Negative for: Nasal congestion Neck: Supple, Nontender Cardiovascular: Regular rate, Regular rhythm, No murmurs Respiratory: No distress, CTA bilaterally, Chest nontender Abdomen: Soft, Nontender, Nondistended, Normal bowel sounds Back: Nontender, Normal Inspection Extremities: Nontender, No edema Skin: Normal color, No rash, No Trauma Neurological: Alert, Oriented x3, Cranial nerves II-XII grossly intact, Normal Strength, Normal Sensation, - - Normal umlqnp-dz-mxkw and aaex-sl-niys bilaterally. No nystagmus. Reproducible vertigo with turning her head to the right on [place] but no nystagmus with it. Psychological: Normal affect, Normal Mood Diagnostic/Tx/Re-eval Impressions Brain CT 10/29/19 20:49 IMPRESSION: Normal unenhanced CT scan of the brain. Electronically Signed: Jason Cole MD at 21:41 EST , Service support , 10/29/19 20:49 CT Brain [Brain/Head without Contrast] [CT] Stat Laboratory Tests 10/29/19 10/29/19 10/29/19 Range/Units 22:25 21:18 21:18 WBC (4.4-11.0) K/mm3 RBC (4.2-5.4) M/mm3 Hgb (12.0-15.0) g/dL Hct (37-47) % MCV (81-99) fL MCH (27.0-32.0) pg MCHC (32-36) g/dL RDW Std Deviation (35.1-43.9) fl RDW Coeff of Edward (11.6-14.6) % Plt Count (150-450) K/mm3 MPV (6.2-12.0) fl Immature Gran % (Auto) (0.0-0.9) % Neut % (Auto) (47-70) % Lymph % (Auto) (19-41) % [place] % (Auto) (0-10) % Eos % (Auto) (0-5) % Baso % (Auto) (0-1) % Absolute Neuts (auto) (2.0-7.7) X10^3/uL Absolute Lymphs (auto) (0.83-4.51) X10^3/uL Nucleated RBC % (0-5) % Sodium 139 (136-145) mmol/L Potassium 4.1 (3.5-5.1) mmol/L Chloride 107 (98-107) mmol/L Carbon Dioxide 27.0 (21.0-32.0) mmol/L Anion Gap 5 (5-15) BUN 13 (7-18) mg/dL Creatinine 0.76 (0.55-1.02) mg/dL Estim Creat Clear Calc 103.17 ml/min Est GFR (MDRD) Af Amer 116 (>60) mL/min Est GFR (MDRD) Non-Af 96 (>60) mL/min BUN/Creatinine Ratio 17.1 (10-20) RATIO Glucose 138 H (74-106) mg/dL Calcium 9.4 (8.5-10.1) mg/dL Urine Color Yellow (Yellow) Urine Clarity Cloudy (Clear) Urine pH 6.5 (5.0 - 8.0) Ur Specific [place] 1.010 (1.002-1.030) Urine Protein 15 H (Negative) mg/dl Urine Glucose (UA) Normal (Normal) mg/dl Urine Ketones Negative (Negative) mg/dl Urine Occult Blood 10 H (Negative) /ul Urine Nitrite Negative (Negative) Urine Bilirubin Negative (Negative) mg/dL Urine Urobilinogen Normal (Normal) mg/dl Ur Leukocyte Esterase 500 H (Negative) /ul Urine RBC 0 SEEN (0-5) /hpf Urine WBC 10-25 SEEN (0-5) /hpf Ur Squamous Epith Cells 5-10 SEEN (5-10) /hpf Urine Bacteria 2+ (None Seen) /hpf Urine Mucus 0 SEEN (<or=2+) /hpf Chancellor 0.80 (0.60-1.20) mmol/L 10/29/19 Range/Units 21:18 WBC 8.0 (4.4-11.0) K/mm3 RBC 4.52 (4.2-5.4) M/mm3 Hgb 13.4 (12.0-15.0) g/dL Hct 40.4 (37-47) % MCV 89.4 (81-99) fL MCH 29.6 (27.0-32.0) pg MCHC 33.2 (32-36) g/dL RDW Std Deviation 42.5 (35.1-43.9) fl RDW Coeff of Edward 13.0 (11.6-14.6) % Plt Count 314 (150-450) K/mm3 MPV 9.6 (6.2-12.0) fl Immature Gran % (Auto) 0.100 (0.0-0.9) % Neut % (Auto) 61.2 (47-70) % Lymph % (Auto) 32.7 (19-41) % [place] % (Auto) 4.3 (0-10) % Eos % (Auto) 1.4 (0-5) % Baso % (Auto) 0.3 (0-1) % Absolute Neuts (auto) 4.9 (2.0-7.7) X10^3/uL Absolute Lymphs (auto) 2.61 (0.83-4.51) X10^3/uL Nucleated RBC % 0 (0-5) % Sodium (136-145) mmol/L Potassium (3.5-5.1) mmol/L Chloride (98-107) mmol/L Carbon Dioxide (21.0-32.0) mmol/L Anion Gap (5-15) BUN (7-18) mg/dL Creatinine (0.55-1.02) mg/dL Estim Creat Clear Calc ml/min Est GFR (MDRD) Af Amer (>60) mL/min Est GFR (MDRD) Non-Af (>60) mL/min BUN/Creatinine Ratio (10-20) RATIO Glucose (74-106) mg/dL Calcium (8.5-10.1) mg/dL Urine Color (Yellow) Urine Clarity (Clear) Urine pH (5.0 - 8.0) Ur Specific [place] (1.002-1.030) Urine Protein (Negative) mg/dl Urine Glucose (UA) (Normal) mg/dl Urine Ketones (Negative) mg/dl Urine Occult Blood (Negative) /ul Urine Nitrite (Negative) Urine Bilirubin (Negative) mg/dL Urine Urobilinogen (Normal) mg/dl Ur Leukocyte Esterase (Negative) /ul Urine RBC (0-5) /hpf Urine WBC (0-5) /hpf Ur Squamous Epith Cells (5-10) /hpf Urine Bacteria (None Seen) /hpf Urine Mucus (<or=2+) /hpf Chancellor (0.60-1.20) mmol/L - Medical Decision Making Patient very poor historian therefore multiple tests were obtained to rule out causes of her disorientation. I suspect she is feeling this way as a result of her pre-existing psychiatric conditions, and feeling vertiginous. She was given meclizine. Tests are unremarkable except 500 LE and 10-25 WBC in urine. She feels better. Started on Bactrim. I feel she can be discharged home on meclizine follow-up if persistent symptoms. She is comfortable with that plan. ED Disposition - Plan for ED Patient: Disposition: Home or Assisted Living Diagnosis: Peripheral vertigo, unspecified, UTI (urinary tract infection) Instructions: VERTIGO, Unspecified Prescriptions: Meclizine HCl [Antivert] 25 mg PO Q8H PRN #16 tab PRN Reason: Vertigo Prescription Printed Smz/Tmp Ds [Bactrim Ds] 1 tab PO BID #6 tab Prescription Printed Referrals: Jenn Chicas MD [Primary Care Provider] - 3-5 Days if not improving
[2019-10-29] MEDS: Meclizine HCl 25 MG Tablet PO (21:17)
[2019-10-29 21:25] LABS: Absolute Lymphocyte Count 2.61 X10^3/uL (0.83-4.51); Absolute Neutrophil Count 4.9 X10^3/uL (2.0-7.7); Basophil# 0.02 X10^3/uL; Basophil% 0.3 % (0-1); Eosinophil# 0.11 X10^3/uL; Eosinophils% 1.4 % (0-5); Hematocrit 40.4 % (37-47); Hemoglobin 13.4 g/dL (12.0-15.0); Lymphocyte # 2.61 X10^3/ul (4.0); Lymphocyte % 32.7 % (19-41); Mean Corp Hgb Conc 33.2 g/dL (32-36); Mean Corpuscular Hgb 29.6 pg (27.0-32.0); Mean Corpuscular Volume 89.4 fL (81-99); Mean Platelet Vol. 9.6 fl (6.2-12.0); Monocyte# 0.34 X10^3/uL; Monocyte% 4.3 % (0-10); NRBC Flagged by Analyzer 0 % (0-5); Neutrophil # 4.89 X10^3/uL (2.7-7.7); Neutrophil % 61.2 % (47-70); Platelet Count 314 K/mm3 (150-450); RBC Distribution Width SD 42.5 fl (35.1-43.9); Red Blood Count 4.52 M/mm3 (4.2-5.4)
[2019-10-29 21:36] LABS: Anion Gap 5 (5-15); BUN 13 mg/dL (7-18); BUN/Creat Ratio 17.1 RATIO (10-20); Calcium,Total 9.4 mg/dL (8.5-10.1); Chloride 107 mmol/L (98-107); Creatinine, Serum 0.76 mg/dL (0.55-1.02); EST Glomerular Filtration Rate 96 mL/min (>60); Est Glom Filt Rate - Afr Amer 116 mL/min (>60); Estimated Creatinine Clearance 103.17 ml/min; Glucose 138 mg/dL (74-106); Potassium 4.1 mmol/L (3.5-5.1); Sodium Level 139 mmol/L (136-145)
[2019-10-29 21:53] VITALS: BP 121/63; BP 131/92; BP 132/84; PULSE 89; PULSE 94; PULSE 95
--- NOTE | 2019-10-29 21:57 | ED.RN ---
PT DOES NOT WISH TO FILE THIS UNDER WORKERS COMP, REFUSED TO TAKE A DRUG TEST PER SHAISTA
[2019-10-29 22:10] VITALS: RESP 15
[2019-10-29 22:48] LABS: Mucous, Urine 0 SEEN /hpf (<or=2+); Red Blood Cells-Urine 0 SEEN /hpf (0-5)
[2019-10-29 22:54] LABS: Color, Urine Yellow (Yellow); Glucose, Dipstick Normal (Normal); Ketone-Dipstick Negative (Negative); Leukocyte Esterase-Dipstick 500 /ul (Negative); Nitrite-Dipstick Negative (Negative); Occult Blood-Urine 10 /ul (Negative); Protein-Dipstick 15 mg/dl (Negative); Urine Bilirubin Dipstick Negative (Negative); Urine Clarity Cloudy (Clear); Urine Urobilinogen Normal (Normal); Urine pH 6.5 (5.0 - 8.0)
[2019-10-29 23:00] LABS: Bacteria 2+ /hpf (None Seen); Squamous Epithelial Cells - UA 5-10 SEEN /hpf (5-10); White Blood Cells 10-25 SEEN /hpf (0-5)
[2019-10-29] MEDS: Smz/Tmp Ds Tablet 1 TABLET PO (23:17)
== END 2019-10-29 23:25 | disposition home or self-care (01) ==
PROVIDERS: Emergency Provider Emergency Medicine; Family Provider Internal Medicine; PCP Internal Medicine
DX: H81.399 Other peripheral vertigo, unspecified ear (principal); N39.0 Urinary tract infection, site not specified; F25.9 Schizoaffective disorder, unspecified; E11.9 Type 2 diabetes mellitus without complications; K21.9 Gastro-esophageal reflux disease without esophagitis; W01.0XXA Fall on same level from slipping, tripping and stumbling without subsequent striking against object, initial encounter; Z79.84 Long term (current) use of oral hypoglycemic drugs
CPT/HCPCS: 36415; 70450; 80048; 80178; 81001; 85025; 99285

== ENCOUNTER 2020-06-10 09:00 | Outpatient (RCR) | payer MEDICAID, SELFPAY ==
--- NOTE | 2020-06-10 10:06 | BH.NA_ITS ---
Physical Data - Vital Signs Pulse Rate: 76 Blood Pressure: 157/92 - Height/Weight Height: 1.68 m - stated Weight:: 133.81 kg - stated Weight in Pounds: 295.0 lbs Nutritional History - Appetite Nutritional Instructions:: If client shows signs of a swallowing problem, weight change of 10 pounds or more in the last month, or is on a diabetic diet, the physician will review and request a dietitian consult, as appropriate. All unintentional weight loss will be referred to the physician for decision on need for dietitian consult. Describe your appetite:: Good - Client states appetite has been normal recently with increased snacks. States appetite will vary when feeling depressed from increased to decreased. Additional nutritional information:: Client states has a h/o Binge eating disorder Functional Assessment - Sleep Pattern Describe any problems with sleeping: Client states has slept less over the past two days but states is receiving an average of 7-9 hours/night. - Activities Motor Activity:: Functional - Client became slightly hyperactive towards end of assessment needing a distraction by clicking a pen. Sensory/Communication Assess - Vision Problems Do you have any vision problems?: Glasses - Communication Problems Do you have difficulty understanding what people are saying?: No Medical Problems/History - Cardiac Conditions Cardiovascular: Hypertension - Genitourinary Conditions Genitourinary: Other (See comments) Comments:: Client states h/o PCOS - Metabolic Conditions Metabolic: Diabetes, Hypothyroidism - Additional History Additional comments:: Client states h/o Schizoaffective disorder, Depression, ? PTSD, Binge eating disorder Surgical History - Surgical History Have you had any surgeries? If so, list type and date:: No Substance Abuse - Substance Abuse Please describe substance abuse in the last 30 days:: Client states consumes alcohol rarely, a few times per year. Client denies past or current tobacco use. Client denies past or current substance use. Client states consumes caffiene occasionally, 1-2 cups daily. Mental Status Summary - Mental Status Significant Findings/Observations on Appearance and Mood:: Client is alert and oriented x4. Client is casually groomed. Client is cooperative with assessment, makes fair eye contact during conversation. Client's speech with normal rate and volume, coherent and spontaneous. Client appears moderately anxious during assessment, needing a distraction of clicking a pen towards end of assessment. Client makes logical associations, normal processing. Client states has auditory hallucinations, states delusions of seeing things in her imagination but knows it is not real and denies visual hallucinations. Client appears with good insight and judgement. Suicide Assessment - Suicidal Ideation Are you currently or have you been suicidal in the past?: Yes - Client states SI in the past, denies current SI/HI Suicidal Intentional Rating Scale (SIRS): Suicidal thoughts (past) Physician Notification: If Active suicidal thoughts/Will not contract for safety is checked, contact physician and document in the Physician Notification section below. Past Psychiatric History - MH Treatment Hx Past Psychiatric Medications:: Client states past psychiatric medications consisting of; Vyvanse, Wellbutrin, Prozac, Abilify, Geodon, Latuda, and Fanapt. Age of first mental health symptoms: Client states she was 17yo at age of mental health diagnosis. Describe (age, circumstance, etc) any past hospitalizations: Client states had psychiatric hospitalization at [facility] 04/28-05/05/20. 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 Fall Risk Assessment - Age Age: Less than 60 - Physical Status Physical Status: No problems - Impairments Impairments: None - Elimination Elimination: Continent AND independent - Gait or Balance Gait or Balance: Walks independently - Hx of Falls History of falls in the past 6 months: No known history - Medications/Substances Psychotropics:: Antidepressants, Antipsychotics, Mood stabilizers, Anxiolytics (e.g. benzodiazepines) Medications/substances used within the past 24 hours or ordered to administer: 3 or more of the medications/substances listed above RN Summary of Impressions - Impressions Recommendations: Include psychiatric and medical issues, treatment planning recommendations, and discharge planning needs. Impressions: Psychiatric Issues: Schizoaffective disorder, bipolar type; PTSD; binge eating disorder - Level of Care How do the client's current symptoms and functional deficits support need for this level of care?: Client details onset of current episode, stating stressors harrassment at work which triggered childhood trauma, her parents, and money led her up to recent admission at [facility] for osei, paranoia, dissociation, having eratic moods, anxiety and panic attacks, and auditory hallucinations. States has imaginatory delusions but know that it is not real. IOP will promote gains and prevent further decompensation while providing social support and skills training.
--- NOTE | 2020-06-10 11:10 | BH.SGPN.GN ---
Behaviors/Verbalizations/Mental Status: []Client alert and oriented, casually dressed and fair grooming - stains on shirt and pants. Eye contact fair to good. Motor activity appropriate. Speech within normal limits. Affect unable to gather due to wearing a mask for COVID-19 protocol, mood anxious, depressed. Thoughts linear, logical, no signs of hallucinations or delusions. Client Response/Progress/Benefit: []Client was an active participant, contributing to discussion and listening attentively to peers. Client participated during discussion on the change process as well as weighing the pros and cons associated with change. She shared specific emotions one might experience throughout the process of change, indicating frustration and fear as emotions common with change. Client benefited from learning to work through pros/cons of personal changes through use of decisional balance sheet. Identified a change she wants to make is set a boundary with her father to better her own mental health. Client able to identify the pros and cons of this change and indicated that making the change would improve her mental health and potentially give her increased motivation to assert herself in other areas of her life. Recommended continued IOP tx to prevent decompensation, improve mood stability, and reduce depressive symptoms. Narrative Note: []
[2020-06-10 11:43] VITALS: BP 157/92; PULSE 76
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
--- NOTE | 2020-06-10 13:16 | BH.DR.ITP ---
Initial Treatment Plan - Patient Information Visit Information: ADMISSION DATE: EXPECTED LOS: 4-6 weeks - Problems/Symptoms Problem #1:: Mood instability Symptom:: Depression, irritiability, loneliness, sadness Problem #2:: ANxiety Symptom:: worry, rumination, nightmares, re-experiencing, avoidance and flashbacks
--- NOTE | 2020-06-10 16:24 | BH.MTP_ITS ---
Master Treatment Plan - Patient Information Program Physician:: Dr. Zahra Childs Primary Therapist:: KURT Hurt - Psychiatric Diagnoses Psychiatric Diagnoses:: Schizoaffective disorder, bipolar type; PTSD; binge eating disorder;. Diagnosis Code(s):: F25.9 - Estimated LOS Estimated LOS (in weeks):: 6 Problem/Goal #1 - Problem/Goal #1 Stated Goal:: Client will stabilize mood and increase emotion regulation and behavioral control through skills learning in Behavioral Health IOP program. Description of Barriers: Client has difficulty with maintaining appropriate boundaries or identifying when to filter thought content in social settings. Client reports becoming easily overwhelmed, isolating, avoidance, and lack of communication with supports. Client is concrete in her thinking patterns and has difficulties in adjusting to changes in routine or unclear expectations. Client has difficulty with maintaining attendance on a consistent basis and self- reports limited motivation or follow-through Functional Impact: Client current mental health symptoms including anxiety, depression, ruminating and intrusive thought, as well as PTSD related symptoms of intrusive thoughts and night terrors have increased social isolation and created difficulties in communicating with others or maintaining employment. This has led to increased difficulties in completing her daily routine and functioning at baseline. Goal Relevant Strengths/Supports: Client is intelligent, resilient, familiar with the treatment process, and open to trying new treatment strategies. - Objectives Objective #1 Stated Objective: Client will learn and utilize 2-3 healthy coping strategies to improve mood stability and better manage mental health symptoms. Interventions: Therapist will help client develop insight into mental health warning signs and triggers for mood dysregulation, as well as help her find strategies to better manage mood and prevent escalation of depressive symptoms. Discharge Criteria: Client will have met this goal when she can use at least 2 healthy coping strategies that effectively regulate mood and manage depressive symptoms. Target Date: 07/22/20 Review Date: 07/08/20 Objective #2 Stated Objective: Pt will decrease depressive and irritability symptoms AEB pt?s score on the DSM 5 cross-cutting measure and improve pt?s daily functioning. Interventions: Through groups and individual therapy, pt will be provided with education on cognitive distortions, mistaken beliefs, and identifying and combating negative self-talk. Therapist will assist pt with getting back into the activities she once enjoyed as well as increasing healthy coping strategies. Discharge Criteria: Pt will have met this goal when pt?s score on the DSM 5 cross cutting measure for depression and irritability has been decreased and per pt?s report daily functioning has improved. Target Date: 07/22/20 Review Date: 07/08/20 Problem/Goal #2 - Problem/Goal #2 Stated Goal:: Client will improve application of healthy coping skills to better manage symptoms of anxiety and decrease ruminating thoughts which cause anxiety. Description of Barriers: Client has difficulty with maintaining appropriate boundaries or identifying when to filter thought content in social settings. Client reports becoming easily overwhelmed, isolating, avoidance, and lack of communication with supports. Client is concrete in her thinking patterns and has difficulties in adjusting to changes in routine or unclear expectations. Client has difficulty with maintaining attendance on a consistent basis and self- reports limited motivation or follow-through Functional Impact: Client current mental health symptoms including anxiety, depression, ruminating and intrusive thought, as well as PTSD related symptoms of intrusive thoughts and night terrors have increased social isolation and created difficulties in communicating with others or maintaining employment. This has led to increased difficulties in completing her daily routine and functioning at baseline. Goal Relevant Strengths/Supports: Client is intelligent, resilient, familiar with the treatment process, and open to trying new treatment strategies. - Objectives Objective #1 Stated Objective: Client will learn and implement 2-3 calming skills to reduce overall anxiety and manage anxiety symptoms Interventions: Therapist will teach client calming/relaxation skills and assign client homework which practices relaxation skills daily. Discharge Criteria: Client will have achieved this goal when can verbalize at least 2 calming skills and implement those skills. Target Date: 07/22/20 Review Date: 07/08/20 Objective #2 Stated Objective: Pt will decrease anxious symptoms AEB pt?s score on the DSM 5 cross-cutting measure improve pt?s daily functioning. Interventions: Through groups and individual therapy, pt will be provided education about anxiety?s impact on body and common physiological reaction to anxiety. Therapist will teach pt appropriate breathing techniques and build healthy coping skills to manage daily anxieties. Discharge Criteria: Pt will have met this goal when pt?s score on the DSM 5 cross cutting measure for anxiety has been decreased and per pt?s report daily functioning has improved. Target Date: 07/22/20 Review Date: 07/08/20
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
--- NOTE | 2020-06-18 09:05 | BH.SGPN.GN ---
Behaviors/Verbalizations/Mental Status: [] Eye contact is good. Motor activity is appropriate. Appearance is casual. Speech is Appropriate. Mood is anxious. Affect is congruent. Thoughts are linear and logical. No evidence of psychosis. Reviewed daily check in sheet and no reports of suicidal ideations or intent. Client Response/Progress/Benefit: [] Pt was an active participant in group discussion. Pt shared with the group that she as admitted to a psychiatric unit and discussed some the reasons for the admission and how she struggles with daily ADLs. Notes no motivation to take a shower which often causes her to stay at home all day and be depressed. Admits to taking a shower only 2x weekly. Talked about placing unrealistic expectations and goals on herself knowing that she cannot suceeed however feeling like a failure if she does not. Gave some examples of this. Getting along with her new site auditor and had begun to see some positives and progress. Progress noted in regards to insight and motivation to change. Benefited from group support, encouragement, and feedback. Will continue in IOP to prevent decompensation, provided support, and improve daily functioning. Narrative Note: []
--- NOTE | 2020-06-18 11:20 | BH.SGPN.GN ---
Behaviors/Verbalizations/Mental Status: []Client alert and oriented, casually dressed and fair grooming. Eye contact good. Motor activity appropriate. Speech within normal limits, often apologizing if beginning to ramble/feeling she wasn?t making sense. Affect congruent though difficult to determine as client wearing a mask per COVID-19 protocol, mood dysthymic, anxious. Thoughts linear, logical, no signs of hallucinations or delusions. Client Response/Progress/Benefit: []Client engaged in session AEB listening to discussion, providing input, and taking notes throughout. At times struggling with self-deprecating talk when feeling she over explained herself. Client attentive during the continued discussion on what prevents moving on to the ?next chapter? in our life and the importance of problem-solving solutions to address identified barriers. Identified habit as a potential barrier. Participated in brainstorming the components of A,B,C,D,E problem solving method and various strategies for promoting follow-through in each stage. Client identified lack of motivations as a barrier preventing her from moving to the next chapter in mental health recovery. Shared that by problem-solving this barrier she will feel more capable of taking on larger goals for her mental health in the future. Identified starting with really small weekly goals of showering twice a week as a realistic first step she can take in the problem-solving process. Appeared to benefit from learning about problem solving method and practice applying this to personal barriers identified. Progress limited as client continues to struggle with consistent attendance and skill application. Will continue IOP tx to prevent decompensation, increased ability to apply behavior activation skills, and continue to promote healthy change behaviors. Narrative Note: []
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
== END 2020-06-26 14:00 ==
LOC: BHIOP 09:00
PROVIDERS: PCP Internal Medicine; Referring Provider Psychiatry & Neurology Psychiatry; Visit Provider Psychiatry & Neurology Psychiatry
DX: F25.0 Schizoaffective disorder, bipolar type (principal); F43.10 Post-traumatic stress disorder, unspecified; F50.81 Binge eating disorder; E66.01 Morbid (severe) obesity due to excess calories; E11.9 Type 2 diabetes mellitus without complications; I10 Essential (primary) hypertension; Z79.899 Other long term (current) drug therapy; Z79.84 Long term (current) use of oral hypoglycemic drugs; E28.2 Polycystic ovarian syndrome
CPT/HCPCS: H0035; H2012; H2020; T1002; 90832

== ENCOUNTER 2020-09-14 02:27 | Emergency (ER) | payer MEDICAID, SELFPAY ==
[2020-09-14] VITALS (11 sets, daily range): BP systolic 118–148; BP diastolic 63–78; PULSE 61–84; RESP 15–16; TEMP 36.2–36.3; O2SAT 97–100; BMI 49.6
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
[2020-09-14 03:48] LABS: Absolute Lymphocyte Count 3.89 X10^3/uL (0.83-4.51); Absolute Neutrophil Count 6.4 X10^3/uL (2.0-7.7); Basophil# 0.01 X10^3/uL; Basophil% 0.1 % (0-1); Hematocrit 41.3 % (37-47); Hemoglobin 13.1 g/dL (12.0-15.0); Lymphocyte # 3.89 X10^3/ul (4.0); Lymphocyte % 35.7 % (19-41); Mean Corp Hgb Conc 31.7 g/dL (32-36); Mean Corpuscular Hgb 28.7 pg (27.0-32.0); Mean Corpuscular Volume 90.4 fL (81-99); Mean Platelet Vol. 9.6 fl (6.2-12.0); Monocyte# 0.56 X10^3/uL; Monocyte% 5.1 % (0-10); NRBC Flagged by Analyzer 0 % (0-5); Neutrophil # 6.41 X10^3/uL (2.7-7.7); Neutrophil % 58.8 % (47-70); Platelet Count 357 K/mm3 (150-450); RBC Distribution Width CV 12.9 % (11.6-14.6); RBC Distribution Width SD 42.5 fl (35.1-43.9); Red Blood Count 4.57 M/mm3 (4.2-5.4); White Blood Count 10.9 K/mm3 (4.4-11.0)
[2020-09-14 04:02] LABS: AST(SGOT) 33 U/L (15-37); Alanine Aminotransfer ALT/SGPT 60 U/L (13-56); Albumin, Serum 3.8 g/dL (3.2-5.0); Alkaline Phosphatase 61 U/L (45-117); Anion Gap 4 (5-15); BUN 16 mg/dL (7-18); Calcium,Total 9.2 mg/dL (8.5-10.1); Chloride 104 mmol/L (98-107); Creatinine, Serum 0.76 mg/dL (0.55-1.02); EST Glomerular Filtration Rate 95 mL/min (>60); Est Glom Filt Rate - Afr Amer 115 mL/min (>60); Estimated Creatinine Clearance 102.25 ml/min; Globulin 3.8 g/dL (2.2-4.2); Glucose 146 mg/dL (74-106); Potassium 4.3 mmol/L (3.5-5.1); Protein, Total 7.6 g/dL (6.4-8.2); Sodium Level 135 mmol/L (136-145)
[2020-09-14 04:05] LABS: Amphetamine Urine VISTA NEGATIVE (<1000 ng/mL); Barbiturate Urine VISTA NEGATIVE (< 200 ng/mL); Benzodiazepine Urine VISTA NEGATIVE (< 200 ng/mL); Cocaine Urine VISTA NEGATIVE (< 300 ng/mL); Ecstacy Urine VISTA NEGATIVE (< 500 ng/mL); Methadone Urine VISTA NEGATIVE (< 300 ng/mL); PCP Urine VISTA NEGATIVE (< 25 ng/mL); THC Urine VISTA NEGATIVE (< 50 ng/mL); Vista UDS pH Range 5
[2020-09-14 04:07] LABS: Internal QC Validated? YES +Cl - CLEAR BKGD; Pregnancy, Serum, hCG Quali. NEGATIVE Negative
[2020-09-14 04:08] LABS: Alcohol, Blood (Medical)-Serum < 3.0 mg/dL
[2020-09-14] MEDS: Levothyroxine 100 MCG Tablet PO (06:33)
[2020-09-14 06:35] LABS: Bedside Glucose 117 mg/dL (70-110)
--- NOTE | 2020-09-14 06:40 | ED.RN ---
CHART FAXED TO CRISIS AT THIS TIME FOR REVIEW
[2020-09-14] MEDS: Pioglitazone Hydrochloride 15 MG Tablet PO (08:10)
[2020-09-14] MEDS: glipiZIDE XL 5 MG Tablet 10 MG PO (08:10)
--- NOTE | 2020-09-14 09:10 | ED.RN ---
[facility] 90 MIN ETA
[2020-09-14] MEDS: Venlafaxine XR 75 MG Capsule 225 MG PO (09:47)
[2020-09-14] MEDS: Lithium Carbonate 300mg Capsule 600 MG PO (09:48)
[2020-09-14] MEDS: Pantoprazole Sodium 40 MG Tablet PO (09:48)
[2020-09-14] MEDS: QUEtiapine 100 MG Tablet 250 MG PO (09:48)
[2020-09-14] MEDS: Metoprolol(XL)Succ 100 MG Tablet PO (09:48)
[2020-09-14] MEDS: lamoTRIgine 100 MG Tablet PO (09:48)
[2020-09-14] MEDS: metFORMIN HCl 1,000 MG Tablet 1000 MG PO (10:00)
== END 2020-09-14 12:21 ==
LOC: ED 03:19
PROVIDERS: Emergency Provider Emergency Medicine; PCP Internal Medicine
DX: F25.9 Schizoaffective disorder, unspecified (principal); K21.9 Gastro-esophageal reflux disease without esophagitis; E11.9 Type 2 diabetes mellitus without complications; Z79.84 Long term (current) use of oral hypoglycemic drugs; Z79.899 Other long term (current) drug therapy
CPT/HCPCS: 36415; 80053; 80307; 80320; 82962; 84703; 85025; 87635; 99285; G0480; U0003

== ENCOUNTER 2020-09-30 22:15 | Emergency (ER) | payer MEDICAID, SELFPAY ==
[2020-09-14 02:30] VITALS: BMI 49.6
[2020-09-30 22:16] VITALS: BP 167/90; PULSE 90; RESP 18; TEMP 36.7; O2SAT 98; BMI 49.2
--- NOTE | 2020-09-30 22:28 | ED.DCSUM_ITS ---
History of Present Illness Chief Complaint: Mental Health Informant: Patient Onset: Today Context: Gradual Onset Timing: Continuous Current Severity: Moderate Maximum Severity: Moderate Narrative: The patient is a 29-year-old female with history of bipolar disorder and borderline personality disorder who presents to the emergency department with difficulty with blood sugar. Patient is on oral antihyperglycemics. She also takes Trulicity once a week. She states that today, she felt like her blood sugar was low. She took it and it was 82. She states this is low for her. She had 12 ounces of orange juice and it dallin to 112. The patient states that she gets very stressed about her blood sugar. She denies being suicidal or homicidal. She states that she does have occasional delusions, but this is not atypical for her. She states that she has been having some difficulty following a strict diet. She denies currently being a risk to herself. Prior similar symptoms: No Recent Illness/Hospitalization: Yes Past Medical History - Allergies and Home Meds Allergies/Adverse Reactions: Allergies aripiprazole [From Abilify] Adverse Reaction (Verified 09/30/20 22:20) NEEDS FOLLOW-UP States reaction- Muscle Rigidity iloperidone [From Fanapt] Adverse Reaction (Verified 09/30/20 22:20) NEEDS FOLLOW-UP States reaction- Palpitations and SOB latex Adverse Reaction (Verified 09/30/20 22:20) NEEDS FOLLOW-UP States Mild allergy lurasidone [From Latuda] Adverse Reaction (Verified 09/30/20 22:20) PT UNSURE OF REACTION ziprasidone [From Geodon] Adverse Reaction (Verified 09/30/20 22:20) NEEDS FOLLOW-UP States reaction- Tardive Dyskinesia Primary Care Physician: Jenn Chicas MD [Primary Care Provider] - Prior records reviewed: Yes Past Medical History: - - Diabetes type 2, borderline personality, bipolar disorder Surgical History: - Smoking Status: Never smoker Review of Systems General: Denies: Chills, Fever, Sweats Eyes: Denies: Visual changes - bilaterally, Diplopia ENT: Denies: Rhinorrhea, Sore throat Cardiovascular: Denies: Chest pain, Palpitations Respiratory: Denies: Dyspnea, Cough, Dyspnea on exertion Gastrointestinal: Reports: Nausea. Denies: Abdominal pain, Vomiting, Diarrhea, Melena, Hematochezia Genitourinary: Denies: Dysuria, Hematuria, Frequency Musculoskeletal: Denies: Back pain, Extremity Pain Skin: Denies: Rash, Wounds Neurological: Denies: Headache, Weakness, Numbness Physical Exam Vital Signs/Narrative: Vital Signs Temp Pulse Resp BP Pulse Ox 09/30/20 22:16 98.0 F 90 18 167/90 H 98 Inital Vital Signs reviewed: Yes General: Well nourished, Well developed, No Acute Distress Head: Normocephalic, Atraumatic Eyes: Perrl, EOMI ENT: Moist mucous membranes, No rhinorrhea Neck: Supple, Nontender Cardiovascular: Regular rate, Regular rhythm, No murmurs Respiratory: No distress, CTA bilaterally, Chest nontender Abdomen: Soft, Nontender, Nondistended, Normal bowel sounds Back: Nontender, Normal Inspection Extremities: Nontender, No edema Skin: Normal color, No rash Neurological: Alert, Oriented x3, Cranial nerves II-XII grossly intact, Normal Strength, Normal Sensation Psychological: Normal affect, Normal Mood Diagnostic/Tx/Re-eval Abnormal Lab Results 09/30/20 09/30/20 09/30/20 22:40 22:40 22:40 WBC 8.0 RBC 4.53 Hgb 12.9 Hct 40.1 MCV 88.5 MCH 28.5 MCHC 32.2 RDW Std Deviation 41.3 RDW Coeff of Edward 12.6 Plt Count 330 MPV 9.2 Immature Gran % (Auto) 0.100 Neut % (Auto) 58.8 Lymph % (Auto) 35.9 Mckenzie % (Auto) 5.1 Eos % (Auto) 0.0 Baso % (Auto) 0.1 Absolute Neuts (auto) 4.7 Absolute Lymphs (auto) 2.87 Nucleated RBC % 0 Sodium 138 Potassium 3.8 Chloride 105 Carbon Dioxide 24.0 Anion Gap 9 BUN 11 Creatinine 0.88 Estim Creat Clear Calc 88.30 Est GFR (MDRD) Af Amer 98 Est GFR (MDRD) Non-Af 81 BUN/Creatinine Ratio 12.6 Glucose 142 H Calcium 9.0 Serum , Qual Ethyl Alcohol < 3.0 09/30/20 22:40 WBC RBC Hgb Hct MCV MCH MCHC RDW Std Deviation RDW Coeff of Edward Plt Count MPV Immature Gran % (Auto) Neut % (Auto) Lymph % (Auto) Mckenzie % (Auto) Eos % (Auto) Baso % (Auto) Absolute Neuts (auto) Absolute Lymphs (auto) Nucleated RBC % Sodium Potassium Chloride Carbon Dioxide Anion Gap BUN Creatinine Estim Creat Clear Calc Est GFR (MDRD) Af Amer Est GFR (MDRD) Non-Af BUN/Creatinine Ratio Glucose Calcium Serum , Qual NEGATIVE Ethyl Alcohol - Medical Decision Making The patient presents concerned about her blood sugar. She states that it was 82. She drank in her blood sugar appropriately increased. Metabolic work-up was done. Creatinine was normal. Blood sugar is at a stable level. Patient is totally asymptomatic. She states that she is having some difficulties at home with her living situation. She states that she is actually scheduled to see her social media strategist and counselor tomorrow and will bring this up. She is not suicidal or homicidal. She states that she does feel safe. She states she has been compliant with her medications. She has no thoughts of self-harm. She is not had increasing delusions or hallucinations. Patient was reassured. I do feel that she is safe for outpatient follow-up. I did halfway house counselor her that if this changes in any time to return. She is comfortable with this plan of care. Impression 1. Reported hypoglycemia ED Disposition - Plan for ED Patient: Instructions: ED DIET Diabetic Referrals: Jenn Chicas MD [Primary Care Provider] -
[2020-09-30 22:48] LABS: Absolute Lymphocyte Count 2.87 X10^3/uL (0.83-4.51); Absolute Neutrophil Count 4.7 X10^3/uL (2.0-7.7); Basophil# 0.01 X10^3/uL; Basophil% 0.1 % (0-1); Hematocrit 40.1 % (37-47); Hemoglobin 12.9 g/dL (12.0-15.0); Lymphocyte # 2.87 X10^3/ul (4.0); Lymphocyte % 35.9 % (19-41); Mean Corp Hgb Conc 32.2 g/dL (32-36); Mean Corpuscular Hgb 28.5 pg (27.0-32.0); Mean Corpuscular Volume 88.5 fL (81-99); Mean Platelet Vol. 9.2 fl (6.2-12.0); Monocyte# 0.41 X10^3/uL; Monocyte% 5.1 % (0-10); NRBC Flagged by Analyzer 0 % (0-5); Neutrophil # 4.69 X10^3/uL (2.7-7.7); Neutrophil % 58.8 % (47-70); Platelet Count 330 K/mm3 (150-450); RBC Distribution Width CV 12.6 % (11.6-14.6); RBC Distribution Width SD 41.3 fl (35.1-43.9); Red Blood Count 4.53 M/mm3 (4.2-5.4)
[2020-09-30 23:01] LABS: Anion Gap 9 (5-15); BUN 11 mg/dL (7-18); BUN/Creat Ratio 12.6 RATIO (10-20); Chloride 105 mmol/L (98-107); Creatinine, Serum 0.88 mg/dL (0.55-1.02); EST Glomerular Filtration Rate 81 mL/min (>60); Est Glom Filt Rate - Afr Amer 98 mL/min (>60); Glucose 142 mg/dL (74-106); Potassium 3.8 mmol/L (3.5-5.1); Sodium Level 138 mmol/L (136-145)
[2020-09-30 23:02] LABS: Internal QC Validated? YES +Cl - CLEAR BKGD; Pregnancy, Serum, hCG Quali. NEGATIVE Negative
[2020-09-30 23:07] LABS: Alcohol, Blood (Medical)-Serum < 3.0 mg/dL
[2020-09-30 23:50] VITALS: TEMP 36.5; BMI 49.2
[2020-09-30 23:52] VITALS: PULSE 76; RESP 16; O2SAT 98
== END 2020-09-30 23:52 | disposition home or self-care (01) ==
LOC: ED 22:33
PROVIDERS: Emergency Provider Emergency Medicine; PCP Internal Medicine
DX: E11.9 Type 2 diabetes mellitus without complications (principal)
CPT/HCPCS: 36415; 80048; 80320; 84703; 85025; 99284; G0480

== ENCOUNTER 2020-10-03 03:47 | Emergency (ER) | payer MEDICAID, SELFPAY ==
[2020-10-03] VITALS (11 sets, daily range): BP systolic 142–163; BP diastolic 70–100; PULSE 99–112; RESP 15–18; TEMP 37–37.1; O2SAT 96–97; BMI 52.4
--- NOTE | 2020-10-03 04:13 | ED.VISSUMM ---
- ER Visit Summary Date of Service: 10/03/20 Chief Complaint: Mental health evaluation History of Present Illness: The patient is a 29 F who presents with for mental health evaluation. Patient states she wants help with her borderline personality disorder. Patient states she has been having difficulty sleeping. Patient states she has not slept in the past 4 to 5 days. Patient denies any visual or auditory hallucinations. Patient denies any suicidal or homicidal ideations. Patient states she follows with the counseling center. Physical Examination: Vital signs are stable. Patient is afebrile. Patient is in no acute distress. Oral mucosa is pink and moist. Neck is supple. Trachea is midline. There is no JVD. Heart was regular rate and rhythm. Lungs are clear and equal bilaterally. Abdomen is soft and nontender. Bowel sounds are normal. Cranial nerves II through XII are intact. There are no focal motor or sensory deficits. Tremors are intact. There is no calf tenderness or edema. Patient denies any suicidal homicidal ideations. Patient denies any visual or auditory hallucinations. Test Results: CBC and metabolic profile were within normal limits. Eagan level was therapeutic at 1.10. hCG was negative. Tox urine was negative. Serum alcohol level was negative. Emergency Department Course and Treatment: Patient is medically cleared. Crisis will evaluate the patient over the phone. Care of the patient was turned over to the oncoming physician pending crisis evaluation. Disposition: Pending per crisis evaluation Impression: Borderline personality disorder This note was generated with [employer] dictation software. It may contain incorrect words, spelling, and punctuation that were not noted in review of the chart prior to signing ED Disposition - Plan for ED Patient: Diagnosis: Borderline personality disorder Instructions: ED Personality Disorder Referrals: Jenn Chicas MD [Primary Care Provider] - [facility] [GROUP OF PHYSICIANS] - 2 Days
[2020-10-03 04:18] LABS: Absolute Lymphocyte Count 3.01 X10^3/uL (0.83-4.51); Absolute Neutrophil Count 4.9 X10^3/uL (2.0-7.7); Basophil# 0.01 X10^3/uL; Basophil% 0.1 % (0-1); Hematocrit 36.5 % (37-47); Hemoglobin 11.9 g/dL (12.0-15.0); Lymphocyte # 3.01 X10^3/ul (4.0); Lymphocyte % 35.5 % (19-41); Mean Corp Hgb Conc 32.6 g/dL (32-36); Mean Corpuscular Volume 88.8 fL (81-99); Mean Platelet Vol. 9.3 fl (6.2-12.0); Monocyte# 0.54 X10^3/uL; Monocyte% 6.4 % (0-10); NRBC Flagged by Analyzer 0 % (0-5); Neutrophil % 57.9 % (47-70); Platelet Count 300 K/mm3 (150-450); RBC Distribution Width CV 12.8 % (11.6-14.6); RBC Distribution Width SD 41.4 fl (35.1-43.9); Red Blood Count 4.11 M/mm3 (4.2-5.4); White Blood Count 8.5 K/mm3 (4.4-11.0)
[2020-10-03 04:46] LABS: Anion Gap 4 (5-15); BUN 10 mg/dL (7-18); BUN/Creat Ratio 11.8 RATIO (10-20); Calcium,Total 9.2 mg/dL (8.5-10.1); Chloride 105 mmol/L (98-107); Creatinine, Serum 0.85 mg/dL (0.55-1.02); EST Glomerular Filtration Rate 84 mL/min (>60); Est Glom Filt Rate - Afr Amer 101 mL/min (>60); Estimated Creatinine Clearance 91.42 ml/min; Glucose 125 mg/dL (74-106); Sodium Level 136 mmol/L (136-145)
[2020-10-03 04:51] LABS: Internal QC Validated? YES +Cl - CLEAR BKGD; Pregnancy, Serum, hCG Quali. NEGATIVE Negative
[2020-10-03 06:22] LABS: Vista UDS pH Range 5
--- NOTE | 2020-10-03 06:37 | ED.RN ---
CALLED LAB FOR URINE TOX RESULTS.
[2020-10-03 06:48] LABS: Amphetamine Urine VISTA NEGATIVE (<1000 ng/mL); Barbiturate Urine VISTA NEGATIVE (< 200 ng/mL); Benzodiazepine Urine VISTA NEGATIVE (< 200 ng/mL); Cocaine Urine VISTA NEGATIVE (< 300 ng/mL); Ecstacy Urine VISTA NEGATIVE (< 500 ng/mL); Methadone Urine VISTA NEGATIVE (< 300 ng/mL); PCP Urine VISTA NEGATIVE (< 25 ng/mL); THC Urine VISTA NEGATIVE (< 50 ng/mL)
--- NOTE | 2020-10-03 06:58 | NURSING ---
FAXED CHART TO [facility]
--- NOTE | 2020-10-03 10:32 | CM.ED ---
SOCIAL WORK Spoke with Mary Kay at Crisis. Per Mary Kay referral to be re-faxed to [facility]. Pending review at this time. Deborah Quinones, PHYSIOTHERAPY PRACTICE MANAGER, VP OF MARKETING
--- NOTE | 2020-10-03 10:45 | CM.ED ---
SOCIAL WORK Received call from Mary Kay with [facility] requesting COVID-19 test. Staff updated as patient has not been tested at this time. Results to be faxed once received. Deborah Quinones, DENTISTRY TEACHER, ABRASIVE GRINDER
--- NOTE | 2020-10-03 13:46 | NURSING ---
COVID RESULTS FAXED TO JOHANNY, JABARI
--- NOTE | 2020-10-03 15:54 | CM.ED ---
SOCIAL WORK Received call from Mary Kay with Crisis. Patient accepted to [facility] by Dr. Franklin to the [facility]. Nurse to call report to . [place] to set up transport. Staff ace. Deborah Quinones MSW, SENIOR SYSTEMS ANALYST
--- NOTE | 2020-10-03 15:59 | NURSING ---
ACCEPTED AT [facility]
--- NOTE | 2020-10-03 16:50 | NURSING ---
CALLED [facility]. ETA IS 30 MIN
== END 2020-10-03 17:09 ==
LOC: ED 04:28
PROVIDERS: Emergency Medicine; Emergency Provider Emergency Medicine; PCP Internal Medicine
DX: F60.3 Borderline personality disorder (principal); E66.9 Obesity, unspecified; Z79.899 Other long term (current) drug therapy
CPT/HCPCS: 80048; 80178; 80307; 80320; 84703; 85025; 87635; 99285; G0480; U0002

== ENCOUNTER 2020-10-25 04:13 | Emergency (ER) | payer MEDICAID, SELFPAY ==
[2020-10-03 03:49] VITALS: BMI 52.4
[2020-10-25 04:14] VITALS: BP 145/92; PULSE 91; RESP 18; TEMP 35.6; O2SAT 99; BMI 50.1
--- NOTE | 2020-10-25 04:32 | ED.DCSUM_ITS ---
History of Present Illness Chief Complaint: Palpitations Informant: Patient Onset: Hours Context: Gradual Onset Current Severity: Mild Maximum Severity: Mild Narrative: Patient presents secondary to concern for irregular heart rate. She states that she felt that her heart is been skipping beats for the last couple of hours. She denies chest pain or shortness of breath. She does report having some mild diarrhea recently. When asked about her thyroid medication she states she is not sure that she had those medications when she was recently hospitalized at a psychiatric facility. She has taken it the last 3 days that she has been back home. - Past Medical History (1) Hypothyroid Status: Chronic (2) High cholesterol Status: Chronic (3) Hypertension Status: Chronic (4) GERD (gastroesophageal reflux disease) Status: Chronic (5) Schizoaffective disorder Status: Chronic (6) Type 2 diabetes mellitus Status: Chronic Past Medical History - Allergies and Home Meds Allergies/Adverse Reactions: Allergies aripiprazole [From Abilify] Adverse Reaction (Verified 10/25/20 04:18) MUSCLE RIGIDITY States reaction- Muscle Rigidity iloperidone [From Fanapt] Adverse Reaction (Verified 10/25/20 04:18) Chest tightness States reaction- Palpitations and SOB latex Adverse Reaction (Verified 10/25/20 04:18) Rash States Mild allergy lurasidone [From Latuda] Adverse Reaction (Verified 10/25/20 04:18) ANXIETY ziprasidone [From Geodon] Adverse Reaction (Verified 10/25/20 04:18) TARDIVE DYSKINESIA States reaction- Tardive Dyskinesia Primary Care Physician: Jenn Chicas MD [Primary Care Provider] - Prior records reviewed: Yes Surgical History: - Smoking Status: Never smoker Review of Systems General: Denies: Chills, Fever Eyes: Denies: Visual changes - bilaterally ENT: Denies: Bilateral ear pain Cardiovascular: Reports: Palpitations. Denies: Chest pain Respiratory: Denies: Dyspnea, Cough Gastrointestinal: Reports: Diarrhea. Denies: Abdominal pain, Nausea, Vomiting Genitourinary: Denies: Dysuria Musculoskeletal: Denies: Swelling, Extremity Pain Skin: Denies: Rash Hematologic: Denies: Easy bruising, Easy bleeding Allergy: Denies: Uticaria Physical Exam Vital Signs/Narrative: Vital Signs Temp Pulse Resp BP Pulse Ox 10/25/20 04:14 96.1 F L 91 18 145/92 H 99 Inital Vital Signs reviewed: Yes General: Well nourished, Well developed Head: Normocephalic ENT: Moist mucous membranes Neck: Supple Cardiovascular: Regular rate, Regular rhythm Respiratory: No distress, CTA bilaterally Abdomen: Soft, Nontender Back: Nontender Extremities: Nontender Skin: Normal color, No rash Neurological: Alert, Oriented x3 Psychological: Normal affect Diagnostic/Tx/Re-eval Impressions Chest X-Ray 10/25/20 04:42 IMPRESSION: No demonstrated acute cardiopulmonary process. Electronically Signed: Michelle Haro MD at 4:57 EST Tel , Service support , 10/25/20 04:42 Chest 1 View (Portable) [RAD] Stat Laboratory Results 10/25/20 10/25/20 04:20 04:20 WBC 8.4 RBC 4.38 Hgb 12.6 Hct 39.0 MCV 89.0 MCH 28.8 MCHC 32.3 RDW Std Deviation 40.3 RDW Coeff of Edward 12.4 Plt Count 323 MPV 9.7 Immature Gran % (Auto) 0.200 Neut % (Auto) 54.3 Lymph % (Auto) 38.3 Ceiba % (Auto) 7.0 Eos % (Auto) 0.0 Baso % (Auto) 0.2 Absolute Neuts (auto) 4.6 Absolute Lymphs (auto) 3.23 Nucleated RBC % 0 Sodium 136 Potassium 3.7 Chloride 104 Carbon Dioxide 27.0 Anion Gap 5 BUN 12 Creatinine 0.90 Estim Creat Clear Calc 86.34 Est GFR (MDRD) Af Amer 95 Est GFR (MDRD) Non-Af 78 BUN/Creatinine Ratio 13.3 Glucose 195 H Calcium 8.8 TSH 7.11 H - EKG Initial EKG Interpretation: Sinus Rhythm - Sinus 84 with no acute ischemia. - Medical Decision Making Patient was observed on quality assurance monitor body here throughout her ED stay with no arrhythmias noted. Patient's TSH is noted to be quite elevated. She believes she went 2 weeks without her thyroid medication when she was hospitalized in a psychiatric facility. She has been back on her medication for the past 3 days. I advised her she needs to have her TSH rechecked in 2 to 3 weeks. She voices understanding and agreement. She is given return instructions. ED Disposition - Plan for ED Patient: Disposition: Home or Assisted Living Diagnosis: Palpitations, Hypothyroidism Instructions: ED Hypothyroidism, ED Palpitations Referrals: Jenn Chicas MD [Primary Care Provider] - Additional Instructions: Follow-up in 2-3 weeks for repeat thyroid testing as discussed.
--- NOTE | 2020-10-25 04:32 | EKG12_ITS ---
Test Reason : PALP Blood Pressure : / mmHG Vent. Rate : 084 BPM Atrial Rate : 084 BPM P-R Int : 154 ms QRS Dur : 102 ms QT Int : 402 ms P-R-T Axes : 047 047 024 degrees QTc Int : 475 ms Normal sinus rhythm Normal ECG Confirmed by KIRSTEN HO, RICKY ([id number]), food expeditor MONSE CHRISTOPHER ([id number]) on 10/27/2020 9:17:14 AM Referred By: SHERRELL Confirmed By:RICKY CURTIS MD
[2020-10-25 04:39] LABS: Absolute Lymphocyte Count 3.23 X10^3/uL (0.83-4.51); Absolute Neutrophil Count 4.6 X10^3/uL (2.0-7.7); Basophil# 0.02 X10^3/uL; Basophil% 0.2 % (0-1); Hemoglobin 12.6 g/dL (12.0-15.0); Lymphocyte # 3.23 X10^3/ul (4.0); Lymphocyte % 38.3 % (19-41); Mean Corp Hgb Conc 32.3 g/dL (32-36); Mean Corpuscular Hgb 28.8 pg (27.0-32.0); Mean Platelet Vol. 9.7 fl (6.2-12.0); Monocyte# 0.59 X10^3/uL; NRBC Flagged by Analyzer 0 % (0-5); Neutrophil # 4.58 X10^3/uL (2.7-7.7); Neutrophil % 54.3 % (47-70); Platelet Count 323 K/mm3 (150-450); RBC Distribution Width CV 12.4 % (11.6-14.6); RBC Distribution Width SD 40.3 fl (35.1-43.9); Red Blood Count 4.38 M/mm3 (4.2-5.4); White Blood Count 8.4 K/mm3 (4.4-11.0)
--- NOTE | 2020-10-25 04:42 | RAD_ITS ---
STUDY: X-RAY CHEST REASON FOR EXAM: Female, 29 years old. HEART PALPITATIONS X 3 HRS. TECHNIQUE: Single AP portable view of the chest. COMPARISON: None. FINDINGS: The lungs are underexpanded. There is no demonstrated pleural abnormality. Normal size heart. Normal mediastinum and apple. Normal visualized pulmonary arteries. Normal visualized aortic arch and descending thoracic aorta. Normal visualized thoracic spine. Normal visualized ribs, clavicles, and shoulders. There is no demonstrated abnormality of the visualized soft tissue structures of the upper abdomen. RAD/Chest 1 View (Portable) IMPRESSION: No demonstrated acute cardiopulmonary process. Electronically Signed: Michelle Haro MD at 4:57 EST Tel , Service support ,
[2020-10-25 05:00] LABS: Anion Gap 5 (5-15); BUN 12 mg/dL (7-18); BUN/Creat Ratio 13.3 RATIO (10-20); Calcium,Total 8.8 mg/dL (8.5-10.1); Chloride 104 mmol/L (98-107); EST Glomerular Filtration Rate 78 mL/min (>60); Est Glom Filt Rate - Afr Amer 95 mL/min (>60); Estimated Creatinine Clearance 86.34 ml/min; Glucose 195 mg/dL (74-106); Potassium 3.7 mmol/L (3.5-5.1); Sodium Level 136 mmol/L (136-145); Thyroid Stim Hormone (TSH) 7.11 uIU/mL (0.358-3.74)
[2020-10-25 05:27] VITALS: BP 132/80; PULSE 81; RESP 16; O2SAT 98
== END 2020-10-25 05:27 | disposition home or self-care (01) ==
PROVIDERS: Emergency Provider Emergency Medicine; PCP Internal Medicine
DX: E03.9 Hypothyroidism, unspecified (principal); R00.2 Palpitations; E11.9 Type 2 diabetes mellitus without complications; K21.9 Gastro-esophageal reflux disease without esophagitis; I10 Essential (primary) hypertension; E78.00 Pure hypercholesterolemia, unspecified; F25.9 Schizoaffective disorder, unspecified; Z79.84 Long term (current) use of oral hypoglycemic drugs; Z79.899 Other long term (current) drug therapy
CPT/HCPCS: 71045; 80048; 84443; 85025; 93005; 99283; A4216

== ENCOUNTER 2021-04-17 12:17 | Emergency (ER) | payer MEDICAID, SELFPAY ==
[2021-04-17 12:18] VITALS: BP 137/96; PULSE 87; RESP 18; TEMP 36.8; O2SAT 97; BMI 48.4
[2021-04-17] MEDS: LORazepam 1 MG Tablet PO (13:14)
--- NOTE | 2021-04-17 13:43 | EX.ED.DYSGE1 ---
HPI History of Present Illness Chief Complaint: Anxiety Informant: patient Narrative Narrative: 30-year-old female presenting with anxiety. She states she felt she was having a panic attack at home. She tried Vistaril, melatonin, CBD oil without improvement. She states she still feels anxious. She denies suicidal ideation or plan. Denies other complaints. Prior similar symptoms: Yes PFSH PFS Medical History (Updated 04/17/21 @ 13:[address] Kamryn Castaneda MD) Binge eating disorder Diabetes mellitus, type II HTN (hypertension) Hypothyroid PCOS (polycystic ovarian syndrome) PTSD (post-traumatic stress disorder) Schizoaffective disorder, bipolar type Home Medications esomeprazole magnesium [Nexium] 40 mg PO DAILY 03/02/17 [History Last Taken 03/02/17] lithium carbonate 600 mg PO BID 03/02/17 [History Last Taken 03/02/17] metformin 2,000 mg PO BID 03/02/17 [History Last Taken 03/02/17] quetiapine [Seroquel Xr] 500 mg PO QHS 03/02/17 [History Last Taken 03/01/17] venlafaxine [Effexor Xr] 150 mg PO DAILY 03/02/17 [History Last Taken 03/02/17] dulaglutide 1.5 mg IM QWEEK 06/10/20 [History Last Taken Unknown] glipizide 10 mg PO DAILY 06/10/20 [History Last Taken Unknown] lamotrigine 100 mg PO DAILY 06/10/20 [History Last Taken Unknown] levothyroxine 100 mcg PO DAILY 06/10/20 [History Last Taken Unknown] pioglitazone 15 mg PO DAILY 06/10/20 [History Last Taken Unknown] hydroxyzine pamoate 50 mg PO TID 09/30/20 [History Last Taken Unknown] naltrexone 50 mg PO DAILY 09/30/20 [History Last Taken Unknown] propranolol 40 mg PO BID 10/25/20 [History Last Taken Unknown] Allergy/AdvReac Type Severity Reaction Status Date / Time aripiprazole [From Abilify] AdvReac MUSCLE Verified 04/17/21 12:24 RIGIDITY iloperidone [From Fanapt] AdvReac Chest Verified 04/17/21 12:24 tightness latex AdvReac Rash Verified 04/17/21 12:24 lurasidone [From Latuda] AdvReac ANXIETY Verified 04/17/21 12:24 ziprasidone [From Geodon] AdvReac TARDIVE Verified 04/17/21 12:24 DYSKINESIA Social History Smoking Status: Never smoker ROS ROS ED Constitutional Constitutional ED: Denies fever(s) ENT ENT ED: Denies rhinorrhea or sore throat Cardiovascular Cardiovascular: Denies chest pain or palpitations Respiratory/Chest Respiratory/Chest: Denies cough or dyspnea Gastrointestinal Gastrointestinal: Denies abdominal pain, nausea or vomiting Neurologic Neurologic: Denies headache(s) Psychiatric Psychiatric: Reports anxiety; Denies suicidal thoughts EXAM Physical Exam Const Vital Signs: 04/17/21 12:18 Temperature 98.2 F Temperature Source Oral Pulse Rate 87 Respiratory Rate 18 Blood Pressure 137/96 H Blood Pressure Mean 109 Pulse Ox 97 Oxygen Delivery Method Room Air Positive well nourished and well developed General Appearance ED: well developed HEENT Reports normocephalic and head/scalp atraumatic Eyes PERRL and EOMs intact bilaterally Neck supple General: Negative for tenderness Chest Wall inspection of chest normal Resp normal respiratory effort and clear to auscultation bilaterally Cardio regular rate and regular rhythm GI non-tender and non-distended Palpation: soft; Negative for guarding or rebound tenderness present no CVA tenderness Extremity normal to inspection Neuro oriented x3 Sensorium / Orientation: alert Psych Mood & Affect: anxious MDM MDM MDM Narrative Medical decision making narrative: Patient was given Ativan. On reevaluation, patient is feeling improved. She is advised to follow up with counseling center. Advised return to ED for worsening complaints. Discharge Plan Triage Chief Complaint: Anxiety ED Provider: Kamryn Castaneda Dx/Rx/DC Orders Clinical Impression: Anxiety Instructions: ED Anxiety Reaction Prescriptions: No Action venlafaxine [Effexor XR] 75 mg Cap.Er.24h 150 mg PO DAILY RF: 0 lithium carbonate 300 mg capsule 600 mg PO BID RF: 0 quetiapine [Seroquel XR] 50 mg Tab.Er.24h 500 mg PO QHS RF: 0 metformin 1,000 MG tablet 2,000 mg PO BID RF: 0 esomeprazole magnesium [Nexium] 40 MG capsule 40 mg PO DAILY RF: 0 levothyroxine 100 MCG tablet 100 mcg PO DAILY RF: 0 glipizide 10 tablet extended release 24hr 10 mg PO DAILY RF: 0 dulaglutide 1.5 pen injector 1.5 mg IM QWEEK RF: 0 pioglitazone 15 MG tablet 15 mg PO DAILY RF: 0 lamotrigine 100 mg tablet 100 mg PO DAILY RF: 0 hydroxyzine pamoate 50 MG capsule 50 mg PO TID RF: 0 naltrexone 50 MG tablet 50 mg PO DAILY RF: 0 propranolol 40 MG tablet 40 mg PO BID RF: 0 Primary Care Provider: Jenn Chicas Referrals: Counseling,Center [GROUP OF PHYSICIANS] - Jenn Chicas MD [Primary Care Provider] - Disposition Disposition: Home, self care
== END 2021-04-17 14:04 | disposition home or self-care (01) ==
PROVIDERS: Emergency Provider Emergency Medicine; PCP Internal Medicine
DX: F41.1 Generalized anxiety disorder (principal); E11.9 Type 2 diabetes mellitus without complications; I10 Essential (primary) hypertension; E03.9 Hypothyroidism, unspecified; F25.0 Schizoaffective disorder, bipolar type; F43.10 Post-traumatic stress disorder, unspecified; Z79.84 Long term (current) use of oral hypoglycemic drugs; Z79.899 Other long term (current) drug therapy
CPT/HCPCS: 99284

== ENCOUNTER 2021-05-09 03:14 | Emergency (ER) | payer MEDICAID, SELFPAY ==
[2021-05-09 03:15] VITALS: BP 142/94; PULSE 92; RESP 18; TEMP 35.9; O2SAT 97; BMI 48.4
--- NOTE | 2021-05-09 03:34 | EX.ED.DYSGE1 ---
HPI History of Present Illness Chief Complaint: Anxiety Narrative Narrative: 30-year-old female presenting with panic attack. Patient states this started 1.5 hours ago. She has history of previous panic attacks. She tried Vistaril at home with no improvement. She states she had same symptoms approximately 1 month ago and was treated with Ativan which improved her symptoms. She has not been able to get into her psychiatrist yet for follow-up but has an appointment in 2 weeks for follow-up. She denies suicidal ideation. Denies other complaints. Prior similar symptoms: Yes Recent Illness/Hospitalization: No [facility] Medical History (Updated 05/09/21 @ 04:[address] Kamryn Castaneda MD) Binge eating disorder Diabetes mellitus, type II HTN (hypertension) Hypothyroid PCOS (polycystic ovarian syndrome) PTSD (post-traumatic stress disorder) Schizoaffective disorder, bipolar type Home Medications esomeprazole magnesium [Nexium] 40 mg PO DAILY 03/02/17 [History Last Taken 03/02/17] lithium carbonate 600 mg PO BID 03/02/17 [History Last Taken 03/02/17] metformin 2,000 mg PO BID 03/02/17 [History Last Taken 03/02/17] quetiapine [Seroquel Xr] 500 mg PO QHS 03/02/17 [History Last Taken 03/01/17] venlafaxine [Effexor Xr] 150 mg PO DAILY 03/02/17 [History Last Taken 03/02/17] dulaglutide 1.5 mg IM QWEEK 06/10/20 [History Last Taken Unknown] glipizide 10 mg PO DAILY 06/10/20 [History Last Taken Unknown] lamotrigine 100 mg PO DAILY 06/10/20 [History Last Taken Unknown] levothyroxine 100 mcg PO DAILY 06/10/20 [History Last Taken Unknown] pioglitazone 15 mg PO DAILY 06/10/20 [History Last Taken Unknown] hydroxyzine pamoate 50 mg PO TID 09/30/20 [History Last Taken Unknown] naltrexone 50 mg PO DAILY 09/30/20 [History Last Taken Unknown] propranolol 40 mg PO BID 10/25/20 [History Last Taken Unknown] lorazepam [Ativan] 1 mg PO DAILY PRN #3 tab 05/09/21 [Rx Last Taken Unknown] Allergy/AdvReac Type Severity Reaction Status Date / Time aripiprazole [From [facility]] AdvReac MUSCLE Verified 05/09/21 03:18 RIGIDITY iloperidone [From Fanapt] AdvReac Chest Verified 05/09/21 03:18 tightness latex AdvReac Rash Verified 05/09/21 03:18 lurasidone [From Latuda] AdvReac ANXIETY Verified 05/09/21 03:18 ziprasidone [From Geodon] AdvReac TARDIVE Verified 05/09/21 03:18 DYSKINESIA Social History Smoking Status: Never smoker ROS ROS ED Constitutional Constitutional ED: Denies fever(s) Eyes Eyes: Denies change in vision ENT ENT ED: Denies rhinorrhea or sore throat Cardiovascular Cardiovascular: Reports palpitations; Denies chest pain Respiratory/Chest Respiratory/Chest: Denies cough or dyspnea Gastrointestinal Gastrointestinal: Denies abdominal pain, diarrhea, nausea or vomiting Genitourinary Genitourinary ED: Denies dysuria Musculoskeletal Musculoskeletal: Denies myalgias Integumentary Denies rash Neurologic Neurologic: Denies headache(s) Psychiatric Psychiatric: Reports anxiety; Denies suicidal thoughts EXAM Physical Exam Const Vital Signs: 05/09/21 03:15 05/09/21 05:56 Temperature 96.7 F L Temperature Source Temporal Pulse Rate 92 76 Respiratory Rate 18 15 Blood Pressure 142/94 H 110/71 Blood Pressure Mean 110 Pulse Ox 97 97 Positive well nourished and well developed General Appearance ED: well developed HEENT Reports normocephalic and head/scalp atraumatic Eyes PERRL and EOMs intact bilaterally Neck supple General: Negative for tenderness Chest Wall inspection of chest normal Resp normal respiratory effort and clear to auscultation bilaterally Cardio regular rate and regular rhythm GI non-tender and non-distended Palpation: soft; Negative for guarding or rebound tenderness present no CVA tenderness Extremity normal to inspection Neuro oriented x3 Sensorium / Orientation: alert Psych Mood & Affect: anxious MDM MDM MDM Narrative Medical decision making narrative: Patient was given Ativan with improvement. She was given prescription for Ativan, 3 tabs. She will follow up with her psychiatrist. Advised to return to the ED for worsening complaints. Discharge Plan Triage Chief Complaint: Anxiety ED Provider: Kamryn Castaneda Dx/Rx/DC Orders Clinical Impression: Anxiety Instructions: ED Anxiety Reaction Prescriptions: New lorazepam [Ativan] 1 mg tablet 1 mg PO DAILY PRN (Reason: anxiety) Qty: 3 RF: 0 No Action venlafaxine [Effexor XR] 75 mg capsule,extended release 24hr 150 mg PO DAILY RF: 0 lithium carbonate 300 mg capsule 600 mg PO BID RF: 0 quetiapine [Seroquel XR] 50 mg tablet extended release 24 hr 500 mg PO QHS RF: 0 metformin 1,000 MG tablet 2,000 mg PO BID RF: 0 esomeprazole magnesium [Nexium] 40 MG capsule 40 mg PO DAILY RF: 0 levothyroxine 100 MCG tablet 100 mcg PO DAILY RF: 0 glipizide 10 tablet extended release 24hr 10 mg PO DAILY RF: 0 dulaglutide 1.5 pen injector 1.5 mg IM QWEEK RF: 0 pioglitazone 15 MG tablet 15 mg PO DAILY RF: 0 lamotrigine 100 mg tablet 100 mg PO DAILY RF: 0 hydroxyzine pamoate 50 MG capsule 50 mg PO TID RF: 0 naltrexone 50 MG tablet 50 mg PO DAILY RF: 0 propranolol 40 MG tablet 40 mg PO BID RF: 0 Primary Care Provider: Jenn Chicas Referrals: Jenn Chicas MD [Primary Care Provider] - Disposition Disposition: Home, self care
[2021-05-09] MEDS: LORazepam 1 MG Tablet PO (04:06)
[2021-05-09 05:56] VITALS: BP 110/71; PULSE 76; RESP 15; O2SAT 97
== END 2021-05-09 06:18 | disposition home or self-care (01) ==
PROVIDERS: Emergency Provider Emergency Medicine; PCP Internal Medicine
DX: F41.9 Anxiety disorder, unspecified (principal); E11.9 Type 2 diabetes mellitus without complications; E03.9 Hypothyroidism, unspecified; I10 Essential (primary) hypertension; Z79.84 Long term (current) use of oral hypoglycemic drugs; Z79.899 Other long term (current) drug therapy
CPT/HCPCS: 99283

== ENCOUNTER 2021-06-04 00:14 | Emergency (ER) | payer MEDICAID, SELFPAY ==
[2021-06-04 00:17] VITALS: BP 137/92; PULSE 105; RESP 18; TEMP 36.6; O2SAT 96; BMI 48.0
--- NOTE | 2021-06-04 00:23 | ED.RN ---
while assessing patient, patient talking to self. patient repeats you are safe and you are okay to herself.
--- NOTE | 2021-06-04 00:38 | EKG12_ITS ---
Test Reason : PALPITATIONS Blood Pressure : / mmHG Vent. Rate : 096 BPM Atrial Rate : 096 BPM P-R Int : 164 ms QRS Dur : 096 ms QT Int : 376 ms P-R-T Axes : 044 025 029 degrees QTc Int : 475 ms Normal sinus rhythm Nonspecific T wave abnormality Prolonged QT Abnormal ECG Confirmed by KIRSTEN HO, RICKY ([id number]), supervising editor news reel MONSE CHRISTOPHER ([id number]) on 06/07/2021 1:06:51 PM Referred By: MURRAY Confirmed By:RICKY CURTIS MD
--- NOTE | 2021-06-04 00:38 | RAD_ITS ---
STUDY: X-RAY CHEST REASON FOR EXAM: Female, 30 years old. chest pain TECHNIQUE: Single AP portable view of the chest. COMPARISON: 10/25/2020 FINDINGS: The lungs are clear and expanded. There is no demonstrated pleural abnormality. Normal size heart. Normal mediastinum and apple. Normal visualized pulmonary arteries. Normal visualized aortic arch and descending thoracic aorta. Normal visualized thoracic spine. Normal visualized ribs, clavicles, and shoulders. There is no demonstrated abnormality of the visualized soft tissue structures of the upper abdomen. RAD/Chest 1 View (Portable) IMPRESSION: Normal x-ray examination of the chest. Electronically Signed: Kyler Saxena DO at 1:33 EDT Tel , Service support ,
--- NOTE | 2021-06-04 00:39 | EDS_ITS ---
HPI History of Present Illness Chief Complaint: Chest Pain Informant: patient Onset/Context/Timing Onset: Hours (3) Activity at onset: gradual Timing: Continuous Quality: Positive for Tightness Location: Left Chest (Without radiation) Current Severity: Mild Maximum Severity: Moderate Worsened By: Nothing; Not Worsened By Breathing Relieved By: Nothing Associated Symptoms: Positive for Dyspnea and Palpitations (Unsure if feeling palpitations with this or not); Negative for Nausea, Vomiting, Diaphoresis, Cough, Fever and Lightheadedness Narrative Narrative: Patient states she has had multiple episodes of this over the last couple months, chest discomfort, palpitations, anxiety/panic. She is not sure if this is an anxiety problem or a heart problem, so she was fitted with a heart monitor within the last 2 days. She states it is a 14-day monitor. No one called her today. She has had no presyncopal or syncopal episodes. She states the symptoms are very similar to all of the prior episode she has had recently. She took Ativan 1 mg x 2 during all of this tonight, she states it helped her anxiety but she still has the chest symptoms. [facility] Medical History Anxiety Binge eating disorder Depression Diabetes mellitus, type II HTN (hypertension) Hypothyroid PCOS (polycystic ovarian syndrome) PTSD (post-traumatic stress disorder) Schizoaffective disorder, bipolar type Home Medications esomeprazole magnesium [Nexium] 40 mg PO DAILY 03/02/17 [History Last Taken 03/02/17] lithium carbonate 600 mg PO BID 03/02/17 [History Last Taken 03/02/17] metformin 2,000 mg PO BID 03/02/17 [History Last Taken 03/02/17] quetiapine [Seroquel XR] 500 mg PO QHS 03/02/17 [History Last Taken 03/01/17] venlafaxine [Effexor XR] 150 mg PO DAILY 03/02/17 [History Last Taken 03/02/17] dulaglutide 1.5 mg IM QWEEK 06/10/20 [History Last Taken Unknown] glipizide 10 mg PO DAILY 06/10/20 [History Last Taken Unknown] lamotrigine 100 mg PO DAILY 06/10/20 [History Last Taken Unknown] levothyroxine 100 mcg PO DAILY 06/10/20 [History Last Taken Unknown] pioglitazone 15 mg PO DAILY 06/10/20 [History Last Taken Unknown] hydroxyzine pamoate 50 mg PO TID 09/30/20 [History Last Taken Unknown] naltrexone 50 mg PO DAILY 09/30/20 [History Last Taken Unknown] propranolol 40 mg PO BID 10/25/20 [History Last Taken Unknown] lorazepam [Ativan] 1 mg PO DAILY PRN #3 tab 05/09/21 [Rx Last Taken Unknown] Allergy/AdvReac Type Severity Reaction Status Date / Time aripiprazole [From Abilify] AdvReac MUSCLE Verified 06/04/21 00:20 RIGIDITY iloperidone [From Fanapt] AdvReac Chest Verified 06/04/21 00:20 tightness latex AdvReac Rash Verified 06/04/21 00:20 lurasidone [From Latuda] AdvReac ANXIETY Verified 06/04/21 00:20 ziprasidone [From Geodon] AdvReac TARDIVE Verified 06/04/21 00:20 DYSKINESIA Social History Smoking Status: Never smoker ROS ROS ED Constitutional Constitutional ED: Denies chills or fever(s) Eyes Eyes: Denies change in vision or diplopia ENT ENT ED: Denies rhinorrhea or sore throat Cardiovascular Cardiovascular: Reports as per HPI and chest pain Respiratory/Chest Respiratory/Chest: Reports as per HPI and dyspnea; Denies cough Gastrointestinal Gastrointestinal: Denies abdominal pain, diarrhea, nausea or vomiting Genitourinary Genitourinary ED: Denies dysuria or hematuria Musculoskeletal Musculoskeletal: Denies back pain or neck pain Integumentary Denies abscess or rash Neurologic Neurologic: Denies headache(s), paresthesias or weakness Psychiatric Psychiatric: Reports anxiety; Denies suicidal thoughts EXAM Physical Exam Const Vital Signs: 06/04/21 00:17 06/04/21 00:20 Temperature 98 F Temperature Source Temporal Pulse Rate 105 H Respiratory Rate 18 Respiratory Effort Normal Respiratory Pattern Normal Blood Pressure 137/92 H Blood Pressure Mean 107 Pulse Ox 96 Oxygen Delivery Method Room Air Positive well nourished, well developed and obese General Appearance ED: well developed and NAD Nutritional Appearance: obese HEENT Reports moist mucous membranes normocephalic and atraumatic Eyes PERRL and EOMs intact bilaterally Neck full ROM and supple Resp normal respiratory effort and clear to auscultation bilaterally Cardio regular rate, regular rhythm and no murmurs Rate: Negative for tachycardic GI non-tender and non-distended Auscultation: normoactive bowel sounds Palpation: soft Back/Spine no CVA tenderness General Back: other FROM Extremity normal to inspection General Extremety ED: Negative for edema, pulses abnormal or tenderness General Extremity: Negative for edema or pulses abnormal Neuro oriented x3, CN's II-XII intact bilaterally and no sensory deficits noted Sensorium / Orientation: awake and alert Motor Exam: strength 5/5 throughout Psych mental status grossly normal, thought process normal, cooperative and denies suicidal ideation Psych Narrative: Anxious Skin no rashes or lesions noted and no wounds Heart Score History: Slightly/Non-Suspicious ECG: Nonspecific Repolarization Age: </= 45 years Risk Factors: >/= 3 Risk Factors or History of CAD Troponin: </= Normal Limit Score: 3 MDM MDM MDM Narrative Medical decision making narrative: Patient was treated with a GI cocktail which did seem to improve her chest discomfort. On reexamination she is much more calm and feels much better. I can reassure her with regards to her discomfort it does not appear to be cardiac, her troponin is negative, her EKG does not show acute injury, and she has had constant discomfort for over a day so she does not need a repeat troponin. Advised to follow-up with her doctor. Lab Data Attestation: I reviewed the patient's lab results. Labs: Laboratory Results - last 24 hr 06/04/21 06/04/21 01:05 01:05 WBC 8.7 RBC 4.52 Hgb 12.8 Hct 38.9 MCV 86.1 MCH 28.3 MCHC 32.9 RDW Std Deviation 39.7 RDW Coeff of Edward 12.7 Plt Count 337 MPV 9.9 Immature Gran % (Auto) 0.300 Neut % (Auto) 66.4 Lymph % (Auto) 26.5 [place] % (Auto) 4.7 Eos % (Auto) 1.6 Baso % (Auto) 0.5 Absolute Neuts (auto) 5.8 Absolute Lymphs (auto) 2.31 Nucleated RBC % 0 Sodium 133 L Potassium 4.5 Chloride 104 Carbon Dioxide 24.0 Anion Gap 5 BUN 12 Creatinine 0.91 Estim Creat Clear Calc 84.62 Est GFR (MDRD) Af Amer 94 Est GFR (MDRD) Non-Af 77 BUN/Creatinine Ratio 13.2 Glucose 209 H Calcium 9.3 Troponin I High Sens < 3.0 L Radiography Chest X-Ray - ED: 1 View, Read by ED Physician and No Acute Disease Diagnostic Testing: Radiology Impression Chest X-Ray 06/04/21 00:38 IMPRESSION: Normal x-ray examination of the chest. Electronically Signed: Kyler Saxena DO at 1:33 EDT Tel , Service support , EKG Initial EKG: Attestation: I personally reviewed and interpreted this EKG as follows: Interpretation: Sinus Rhythm, No Acute Injury Pattern and Non-Specific ST Changes (flattened ant-sept T waves) Discharge Plan Triage Chief Complaint: Chest Pain ED Provider: Tommy Driver Dx/Rx/DC Orders Clinical Impression: Chest pain, unspecified, Panic attack Instructions: ED Anxiety Reaction Prescriptions: Continued venlafaxine [Effexor XR] 75 mg capsule,extended release 24hr 150 mg PO DAILY RF: 0 lithium carbonate 300 mg capsule 600 mg PO BID RF: 0 quetiapine [Seroquel XR] 50 mg tablet extended release 24 hr 500 mg PO QHS RF: 0 metformin 1,000 MG tablet 2,000 mg PO BID RF: 0 esomeprazole magnesium [Nexium] 40 MG capsule 40 mg PO DAILY RF: 0 levothyroxine 100 MCG tablet 100 mcg PO DAILY RF: 0 glipizide 10 tablet extended release 24hr 10 mg PO DAILY RF: 0 dulaglutide 1.5 pen injector 1.5 mg IM QWEEK RF: 0 pioglitazone 15 MG tablet 15 mg PO DAILY RF: 0 lamotrigine 100 mg tablet 100 mg PO DAILY RF: 0 hydroxyzine pamoate 50 MG capsule 50 mg PO TID RF: 0 naltrexone 50 MG tablet 50 mg PO DAILY RF: 0 propranolol 40 MG tablet 40 mg PO BID RF: 0 lorazepam [Ativan] 1 mg tablet 1 mg PO DAILY PRN (Reason: anxiety) Qty: 3 RF: 0 Primary Care Provider: Jenn Chicas Referrals: Jenn Chicas MD [Primary Care Provider] - 3-5 Days Disposition Disposition: Home, Self Care
[2021-06-04 01:10] LABS: Absolute Lymphocyte Count 2.31 X10^3/uL (0.83-4.51); Absolute Neutrophil Count 5.8 X10^3/uL (2.0-7.7); Basophil# 0.04 X10^3/uL; Basophil% 0.5 % (0-1); Eosinophil# 0.14 X10^3/uL; Eosinophils% 1.6 % (0-5); Hematocrit 38.9 % (37-47); Hemoglobin 12.8 g/dL (12.0-15.0); Lymphocyte # 2.31 X10^3/ul (0.83-4.51); Lymphocyte % 26.5 % (19-41); Mean Corp Hgb Conc 32.9 g/dL (32-36); Mean Corpuscular Hgb 28.3 pg (27.0-32.0); Mean Corpuscular Volume 86.1 fL (81-99); Mean Platelet Vol. 9.9 fl (6.2-12.0); Monocyte# 0.41 X10^3/uL; Monocyte% 4.7 % (0-10); NRBC Flagged by Analyzer 0 % (0-5); Neutrophil # 5.78 X10^3/uL (2.7-7.7); Neutrophil % 66.4 % (47-70); Platelet Count 337 K/mm3 (150-450); RBC Distribution Width CV 12.7 % (11.6-14.6); RBC Distribution Width SD 39.7 fl (35.1-43.9); Red Blood Count 4.52 M/mm3 (4.2-5.4); White Blood Count 8.7 K/mm3 (4.4-11.0)
[2021-06-04] MEDS: Mag Hydrox/Al Hydrox/Simeth 30 ML UDC PO (01:33)
[2021-06-04 01:37] LABS: Anion Gap 5 (5-15); BUN 12 mg/dL (7-18); BUN/Creat Ratio 13.2 RATIO (10-20); Calcium,Total 9.3 mg/dL (8.5-10.1); Chloride 104 mmol/L (98-107); Creatinine, Serum 0.91 mg/dL (0.55-1.02); EST Glomerular Filtration Rate 77 mL/min (>60); Est Glom Filt Rate - Afr Amer 94 mL/min (>60); Estimated Creatinine Clearance 84.62 ml/min; Glucose 209 mg/dL (74-106); Potassium 4.5 mmol/L (3.5-5.1); Sodium Level 133 mmol/L (136-145); Troponin-I HS < 3.0 pg/mL (3.0-53.7)
[2021-06-04 02:24] VITALS: BP 124/76; PULSE 87; RESP 15; O2SAT 95
== END 2021-06-04 02:31 | disposition home or self-care (01) ==
PROVIDERS: Emergency Provider Emergency Medicine; PCP Internal Medicine
DX: R07.9 Chest pain, unspecified (principal); F41.0 Panic disorder [episodic paroxysmal anxiety]; E11.9 Type 2 diabetes mellitus without complications; E03.9 Hypothyroidism, unspecified; I10 Essential (primary) hypertension; E66.9 Obesity, unspecified; Z79.84 Long term (current) use of oral hypoglycemic drugs; Z79.899 Other long term (current) drug therapy
CPT/HCPCS: 71045; 80048; 84484; 85025; 93005; 99285; A4216

== ENCOUNTER 2023-12-08 23:32 | Emergency (ER) | payer MEDICARE, MEDICAID, SELFPAY ==
[2023-12-08 23:34] VITALS: BP 143/106; PULSE 88; RESP 18; TEMP 35.8; O2SAT 95; BMI 47.1
--- OUTSIDE RECORDS SUMMARY | 2023-12-08 23:55 | XMS RPT_ITS | CCD ---
Author Name Unknown Address [address] [place] [address] Organization [facility] Care Team Providers Care Reserves Clerk Name Role Phone RICHY SANTANA Attending Unavailable GANTA, HONG Primary Care Unavailable YANCI RUBALCAVA Attending Unavailable OLDER, IRA Referring Unavailable GANTA, HONG Primary Care Unavailable GANTA, HNOG Primary Care Unavailable OLDERIRA Attending Unavailable GANTA, HONG Primary Care Unavailable DENBOW, DAILY Referring Unavailable GANTA, HONG Primary Care Unavailable DENBOW, DAILY Referring Unavailable GANTA, HONG Primary Care Unavailable DENBOW, DAILY Attending Unavailable GANTA, HONG Primary Care Unavailable DENBOW, DAILY Attending Unavailable GANTA, HONG Primary Care Unavailable GANTA, HONG Primary Care Unavailable Allergies Allergy Classification Reported Allergen(s) Allergy Type Date of Onset Reaction(s) Facility (1 source) Latex; Translations: [LATEX] Propensity to adverse reactions to drug (disorder) [facility] Repository Problems Active Problems Problem Classification Problem Date Documented Da te Episodic/Chronic Diabetes mellitus without complication (2 sources) Type 2 diabetes mellitus without complications; Translations: [Type 2 diabetes mellitus without retinopathy (HCC)] Onset: 11-14-2017 Chronic Other aftercare (1 source) Other residential (current) drug therapy; Translations: [detention use of drug] Onset: 06-27-2023 Episodic Other screening for suspected conditions (not mental disorders or infectious disease) (1 source) Other specified abnormal findings of blood chemistry; Translations: [Elevated LFTs] Onset: 09-25-2023 Episodic Thyroid disorders (1 source) Other specified hypothyroidism; Translations: [Other specified hypothyroidism] Onset: 11-14-2017 Chronic Past or Other Problems Problem Classification Problem Date Documented Date Episodic/Chronic Contraceptive and procreative management (1 source) Encounter for routine checking of intrauterine contraceptive device; Translations: [Encounter for routine checking of intrauterine contraceptive device (IUD)] Onset: 01-25-2023 Episodic Results Test Name Value Interpretation Reference Range Facil ity Encounters Encounter Date Encounter Type Care Provider Facility Start: 09-25-2023 End: 09-25-2023 ambulatory [facility] Facility:[facility] Start: 08-23-2023 End: 08-24-2023 ambulatory [facility] Facility:[facility] Start: 07-12-2023 End: 07-12-2023 ambulatory [facility] Facility:[facility] Start: 06-27-2023 End: 06-28-2023 ambulatory [facility] Facility:[facility] Start: 01-25-2023 End: 01-26-2023 ambulatory RICHY SANTANA Facility:[facility] Start: 01-10-2023 End: 01-10-2023 ambulatory YANCI RUBALCAVA Facility:[facility] Start: 12-02-2022 End: 12-02-2022 ambulatory [facility] Facility:[facility] Start: 10-19-2022 End: 10-19-2022 ambulatory IRA EDEN Facility:[facility] Payers Date Payer Category Payer Medicaid [id number] 2022 Medicare [id number] 2018 Medicaid [id number] Progress note 09-25-2023 Note Date & Type Note Facility 09-25-2023 Note HNO ID: [id number] Author: Angelia Logan RDMS Service: ? Author Type: Manager Med Surg Type: Progress Notes Filed: 09/25/2023 10:52 AM Note Text: Radiology Service Progress Note PATIENT NAME: Rupa Holguin DATE OF SERVICE: September 25, 2023 TIME: 10:52 AM PATIENT IDENTITY VERIFICATION COMPLETED USING TWO (2) IDENTIFIERS: Name and Date of confirmed by patient verbally. FALL SCREENING: Has the patient had 2 falls in the last year or 1 fall with injury or currently using an Ambulatory Assistive Device (Walker, Cane, Wheelchair, Crutches, etc.)? No PATIENT GENDER DATA: Female. status: : No status: NO. PATIENT RELEVANT IMPLANT DATA REVIEWED: Not Applicable RADIOLOGY DEPARTMENT: Ultrasound PERIPHERAL IV DATA: Not applicable SIGNED BY: Angelia Logan RDMS RVT September 25, 2023 10:52 AM [facility] Progress note 08-23-2023 Note Date & Type Note Facility 08-23-2023 Note HNO ID: [id number] Author: Daily Berkowitz PA-C Service: ? Author Type: Physician Jewelry Cutter Type: Progress Notes Filed: 08/23/2023 3:42 PM Note Text: CC: Patient presents with: Follow Up: 6 week follow up- discuss trulicity HPI Rupa Holguin is a 32 year old adult who presents today for f/u re: DM. Pt was instructed to ask her psychiatrist about advice on mounjaro or ozempic, or if they'd recommend against it giving her psych history. LV was Diabetes: Rupa Holguin denies excessive thirst or increased frequency of urination, chest pain or dyspnea , numbness, tingling or pain in extremities, new or unusual visual symptoms, low sugar/hypoglycemic reactions, weight loss/gain, lightheadedness/dizziness, and bowel changes/loose stools. Currently still on metformin 1000 mg BID, Glipizide 10 mg once daily, and 30 mg actos once daily. Rupa Holguin is not compliant with medication(s) but is tolerating med(s) without any side effects. Home blood sugar readings: Trending upwards in the past couple months; non-fasting AM 321, non-fasting PM 397 Hypoglycemia: No Diabetic diet: No Patient's last HgA1C was Hemoglobin A1C (%) Date Value 06/27/2023 8.9 06/03/2021 7.7 07/14/2020 6.1 Hemoglobin A1C (POCT) (%) Date Value 10/19/2022 9.3 06/23/2022 8.5 REVIEW OF SYSTEMS See HPI All other systems negative. PAST MEDICAL HISTORY Diagnosis Date Adult ADHD 11/14/2017 Binge eating disorder 05/23/2018 Essential hypertension 11/14/2017 Obesity Other specified hypothyroidism 11/14/2017 Due to medication PCOS (polycystic ovarian syndrome) Puberty, precocious Schizoaffective disorder (HCC) Type 2 diabetes mellitus without complication, without long-term current use of insulin (HCC) 11/14/2017 PAST SURGICAL HISTORY Procedure Laterality Date NONE ALLERGIES Latex MEDICATIONS dulaglutide (TRULICITY) 1.5 mg/0.5 mL pen injector INJECT 1.5MG SUBCUTANEOUSLY EVERY WEEK pioglitazone (ACTOS) 30 mg tablet Take 1 tablet by mouth once daily. glipiZIDE (GLUCOTROL XL) 10mg 24 hr tablet Take 1 tablet by mouth once daily. propranolol (INDERAL) 40 mg tablet Take 1 tablet by mouth twice daily. omeprazole (PRILOSEC) 20 mg capsule Take 1 capsule by mouth daily before breakfast. levothyroxine (SYNTHROID) 100 mcg tablet Take 1 tablet by mouth daily before breakfast. metFORMIN (GLUCOPHAGE) 1,000 mg tablet Take 1 tablet by mouth twice daily. QUEtiapine XR (SEROQUEL XR) 400 mg 24 hr tablet Take 800 mg by mouth daily at bedtime. clonazePAM (KLONOPIN) 0.5 mg tablet Take 0.5 mg by mouth once daily. busPIRone (BUSPAR) 5 mg tablet Take 5 mg by mouth three times daily as needed. lithium carbonate 600 mg capsule Take 1 capsule by mouth twice daily. naltrexone (TREXAN) 50 mg tablet Take 50 mg by mouth once daily. hydrOXYzine pamoate (VISTARIL) 50 mg capsule Take 50 mg by mouth three times daily as needed. lancets (FREESTYLE LANCETS) 28 gauge TEST BLOOD SUGAR TWICE A DAY blood sugar diagnostic (BLOOD GLUCOSE TEST) test strip Test blood sugar(s) 3 times daily. Dx: Type 2 DM - Uncontrolled E11.65 Insulin: No venlafaxine ER (EFFEXOR XR) 150 mg 24 hr capsule Take 150 mg by mouth once daily. Blood-Glucose Meter (ONETOUCH VERIO METER) Dispense One Kit - Verio Meter Kit Test blood sugar(s) 2 times daily. Dx: Type 2 DM - Controlled E11.9 Insulin: No albuterol HFA (VENTOLIN HFA) 90 mcg/actuation inhaler Inhale 2 Puffs as instructed every 4 hours as needed for Wheezing/Shortness of Breath (May use before exercise). levonorgestrel (MIRENA INTRAUTERINE) by INTRAUTERINE route. FAMILY HISTORY Problem Relation Age of Onset Cancer Father leukemia, kidney cancer Hypertension Father Lipids Father Thyroid Maternal Grandmother Hypertension Mother Ischemic Heart Disease Paternal Grandfather Social History Tobacco Use Smoking status: Never Smokeless tobacco: Never Vaping Use Vaping Use: Never used Substance Use Topics Alcohol use: Yes Comment: Very small amount occasionally Drug use: No PHYSICAL EXAM BP 128/80 (BP Site: Left Arm, BP Position: Sitting, BP Cuff Size: Large Adult) Pulse 85 Temp 36.7 ?C (98.1 ?F) Resp 14 Ht 167.6 cm (5' 6 ) Wt (!) 139.3 kg (307 lb) SpO2 96% BMI 49.55 kg/m? General Appearance: well appearing, in no acute distress, alert, morbidly obese Psych: mood and affect broad and appropriate Skin: Skin color, texture, turgor normal for age Lungs: Lungs clear to auscultation. No wheezing, rhonchi, rales. Heart: RRR without murmur, gallop, or rubs. Extremities: No gross deformities, significant edema, skin discoloration, clubbing or cyanosis. Neurological: Gait normal. No focal neurological deficits. Sensation grossly intact. ASSESSMENT/PLAN: 1. Type 2 diabetes mellitus without complication, without long-term current use of insulin (HCC) - ICD9: 250.00, ICD10: E11.9 (primary diagnosis) - Uncontrolled We will start on M (more content not included)... [facility] Progress note 07-12-2023 Note Date & Type Note Facility 07-12-2023 Note HNO ID: [id number] Author: Daily Berkowitz PA-C Service: ? Author Type: Physician Jewelry Cutter Type: Progress Notes Filed: 07/12/2023 3:50 PM Note Text: CC: Patient presents with: Refill Request Question about Trulicity HPI Rupa Holguin is a 32 year old adult who presents today for routine f/u and for medication refills, and question regarding switching from Trulicity to Semaglutide. Diabetes: States that the Trulicity does not help w/ appetite suppression or weight loss. Had been on vyvanse in the past for binge eating disorder, which was effective but she states that increased hallucinations. Rupa Holguin denies excessive thirst or increased frequency of urination, chest pain or dyspnea , numbness, tingling or pain in extremities, new or unusual visual symptoms, low sugar/hypoglycemic reactions, weight loss/gain, lightheadedness/dizziness, and bowel changes/loose stools. Rupa Holguin is compliant with medication(s) and is tolerating med(s) without any side effects. Home blood sugar readings: Wide range, between 190s to 244 Hypoglycemia: No Diabetic diet: No Patient's last HgA1C was Hemoglobin A1C (%) Date Value 06/27/2023 8.9 06/03/2021 7.7 07/14/2020 6.1 Hemoglobin A1C (POCT) (%) Date Value 10/19/2022 9.3 06/23/2022 8.5 Schizoaffective: Sees Dr. Camilo, psychiatry, through [facility] Q3-4 months. REVIEW OF SYSTEMS See HPI All other systems negative. PAST MEDICAL HISTORY Diagnosis Date Adult ADHD 11/14/2017 Binge eating disorder 05/23/2018 Essential hypertension 11/14/2017 Obesity Other specified hypothyroidism 11/14/2017 Due to medication PCOS (polycystic ovarian syndrome) Puberty, precocious Schizoaffective disorder (HCC) Type 2 diabetes mellitus without complication, without long-term current use of insulin (HCC) 11/14/2017 PAST SURGICAL HISTORY Procedure Laterality Date NONE ALLERGIES Latex MEDICATIONS dulaglutide (TRULICITY) 1.5 mg/0.5 mL pen injector INJECT 1.5MG SUBCUTANEOUSLY EVERY WEEK pioglitazone (ACTOS) 30 mg tablet Take 1 tablet by mouth once daily. pioglitazone (ACTOS) 30 mg tablet Take 1 tablet by mouth once daily. glipiZIDE (GLUCOTROL XL) 10mg 24 hr tablet Take 1 tablet by mouth once daily. propranolol (INDERAL) 40 mg tablet Take 1 tablet by mouth twice daily. omeprazole (PRILOSEC) 20 mg capsule Take 1 capsule by mouth daily before breakfast. levothyroxine (SYNTHROID) 100 mcg tablet Take 1 tablet by mouth daily before breakfast. metFORMIN (GLUCOPHAGE) 1,000 mg tablet Take 1 tablet by mouth twice daily. lancets (FREESTYLE LANCETS) 28 gauge TEST BLOOD SUGAR TWICE A DAY blood sugar diagnostic (BLOOD GLUCOSE TEST) test strip Test blood sugar(s) 3 times daily. Dx: Type 2 DM - Uncontrolled E11.65 Insulin: No QUEtiapine XR (SEROQUEL XR) 400 mg 24 hr tablet Take 800 mg by mouth daily at bedtime. clonazePAM (KLONOPIN) 0.5 mg tablet Take 0.5 mg by mouth once daily. busPIRone (BUSPAR) 5 mg tablet Take 5 mg by mouth three times daily as needed. venlafaxine ER (EFFEXOR XR) 150 mg 24 hr capsule Take 150 mg by mouth once daily. Blood-Glucose Meter (ONETOUCH VERIO METER) Dispense One Kit - Verio Meter Kit Test blood sugar(s) 2 times daily. Dx: Type 2 DM - Controlled E11.9 Insulin: No lithium carbonate 600 mg capsule Take 1 capsule by mouth twice daily. naltrexone (TREXAN) 50 mg tablet Take 50 mg by mouth once daily. hydrOXYzine pamoate (VISTARIL) 50 mg capsule Take 50 mg by mouth three times daily as needed. albuterol HFA (VENTOLIN HFA) 90 mcg/actuation inhaler Inhale 2 Puffs as instructed every 4 hours as needed for Wheezing/Shortness of Breath (May use before exercise). levonorgestrel (MIRENA INTRAUTERINE) by INTRAUTERINE route. FAMILY HISTORY Problem Relation Age of Onset Cancer Father leukemia, kidney cancer Hypertension Father Lipids Father Thyroid Maternal Grandmother Hypertension Mother Ischemic Heart Disease Paternal Grandfather Social History Tobacco Use Smoking status: Never Smokeless tobacco: Never Vaping Use Vaping Use: Never used Substance Use Topics Alcohol use: Yes Comment: Very small amount occasionally Drug use: No PHYSICAL EXAM BP 122/70 (BP Site: Left Arm, BP Position: Sitting, BP Cuff Size: Large Adult) Pulse 82 Temp 36.6 ?C (97.9 ?F) Resp 12 Ht 167.6 cm (5' 6 ) Wt (!) 142.4 kg (314 lb) SpO2 96% BMI 50.68 kg/m? General Appearance: well appearing, obese, in no acute distress, alert Pysch: mood and affect broad and appropriate Skin: Skin color, texture, turgor normal for age; Head: normocephalic, atraumatic Lymph nodes: No cervical lymphadenopathy Lungs: Lungs clear to auscultation. No wheezing, rhonchi, rales. Heart: RRR without murmur, gallop, or rubs. No ectopy Abdomen: Protuberant abdomen noted Extremities: No gross deformities, significant edema, skin discoloration, clubbing or cyanosis. Neurologica (more content not included)... [facility] Clinical Note 06-27-2023 Note Date & Type Note Facility 06-27-2023 Note Patient Outreach (IN [facility]) RUPA HOLGUIN ([id number]) 1990 F Date Time Provider Department 06/27/23 [place] During your visit today, we recorded the following information about you: Allergies As of Date: 06/27/2023 Noted Allergy Reaction LATEX 4 - Hives Date Reviewed: 01/25/2023 Reviewed by: Richy Santana MD - Fully Assessed Visit Diagnoses:Type 2 diabetes mellitus without retinopathy (HCC) [E11.9] Other specified hypothyroidism [E03.8] Order(s):ALBUMIN/CREAT RATIO RND UR [SQUACR] Order #: [id number] FUTURE BASIC METABOLIC PNL [SQBMP] Order #: [id number] FUTURE HGB A1C [[id number]] Order #: [id number] FUTURE LIPID PANEL BASIC [SQLIPB] Order #: [id number] FUTURE TSH BLD [SQTSH] Order #: [id number] FUTURE Prescriptions as of 06/30/2023 - pioglitazone (ACTOS) 30 mg tablet Take 1 tablet by mouth once daily. - pioglitazone (ACTOS) 30 mg tablet Take 1 tablet by mouth once daily. - glipiZIDE (GLUCOTROL XL) 10mg 24 hr tablet Take 1 tablet by mouth once daily. - propranolol (INDERAL) 40 mg tablet Take 1 tablet by mouth twice daily. - omeprazole (PRILOSEC) 20 mg capsule Take 1 capsule by mouth daily before breakfast. - levothyroxine (SYNTHROID) 100 mcg tablet Take 1 tablet by mouth daily before breakfast. - metFORMIN (GLUCOPHAGE) 1,000 mg tablet Take 1 tablet by mouth twice daily. - dulaglutide (TRULICITY) 1.5 mg/0.5 mL pen injector INJECT 1.5MG SUBCUTANEOUSLY EVERY WEEK - lancets (FREESTYLE LANCETS) 28 gauge TEST BLOOD SUGAR TWICE A DAY - blood sugar diagnostic (BLOOD GLUCOSE TEST) test strip Test blood sugar(s) 3 times daily. Dx: Type 2 DM - Uncontrolled E11.65 Insulin: No - QUEtiapine XR (SEROQUEL XR) 400 mg 24 hr tablet Take 800 mg by mouth daily at bedtime. - clonazePAM (KLONOPIN) 0.5 mg tablet Take 0.5 mg by mouth once daily. - busPIRone (BUSPAR) 5 mg tablet Take 5 mg by mouth three times daily as needed. - venlafaxine ER (EFFEXOR XR) 150 mg 24 hr capsule Take 150 mg by mouth once daily. - Blood-Glucose Meter (ONETOUCH VERIO METER) Dispense One Kit - Verio Meter Kit Test blood sugar(s) 2 times daily. Dx: Type 2 DM - Controlled E11.9 Insulin: No - lithium carbonate 600 mg capsule Take 1 capsule by mouth twice daily. - naltrexone (TREXAN) 50 mg tablet Take 50 mg by mouth once daily. - hydrOXYzine pamoate (VISTARIL) 50 mg capsule Take 50 mg by mouth three times daily as needed. - albuterol HFA (VENTOLIN HFA) 90 mcg/actuation inhaler Inhale 2 Puffs as instructed every 4 hours as needed for Wheezing/Shortness of Breath (May use before exercise). - levonorgestrel (MIRENA INTRAUTERINE) by INTRAUTERINE route. Problem List As Of Date 06/27/2023 Noted Resolved PCOS (polycystic ovarian syndrome) [E28.2] 12/09/2013 Essential hypertension [I10] 11/14/2017 Adult ADHD [F90.9] 11/14/2017 Other specified hypothyroidism [E03.8] 11/14/2017 Type 2 diabetes mellitus without complication, *11/14/2017 Schizoaffective disorder, bipolar type (HCC) [F* Type 2 diabetes mellitus without retinopathy (H*07/12/2018 Vitreous floaters of both eyes [H43.393] 07/12/2018 Bipolar disorder, unspecified (HCC) [F31.9] 03/09/2017 Morbid obesity (HCC) [E66.01] 11/04/2019 Insulin resistance [E88.81] 12/19/2019 Obesity, Class III, BMI >= 40 [E66.01] 09/08/2020 Borderline personality disorder (HCC) [F60.3] 12/28/2020 Encounter Status:Closed by JEREMY WARDUSER on 06/30/23 [facility] Progress note 01-25-2023 Note Date & Type Note Facility 01-25-2023 Note HNO ID: [id number] Author: Richy Santana MD Service: ? Author Type: Physician Type: Progress Notes Filed: 01/25/2023 10:13 AM Note Text: Rupa Holguin is a 32 year old female who presents for problem visit for contraception discussion HPI: 32 YOF has had a a mirena since 01/23/19. She denies any bleeding or pain. Sexually active with one partner in past year. Denies abnormal discharge or pain w/ sexual activity. Was thinking she needed to schedule IUD change. Overall is happy w/ it and desires to continue w/ it and does not plan at this time. OB History T0 L0 SAB0 IAB0 Ectopic0 Multiple0 Live Births0 [employer] Operator History LMP: IUD Age at Menarche: Age at First : Age at Menopause: Tr[employer] Operator History Comments: Sexual Activity: Yes; Male Contraception: Pill PAST MEDICAL HISTORY Diagnosis Date Adult ADHD 11/14/2017 Binge eating disorder 05/23/2018 Essential hypertension 11/14/2017 Obesity Other specified hypothyroidism 11/14/2017 Due to medication PCOS (polycystic ovarian syndrome) Puberty, precocious Schizoaffective disorder (HCC) Type 2 diabetes mellitus without complication, without long-term current use of insulin (HCC) 11/14/2017 PAST SURGICAL HISTORY Procedure Laterality Date NONE FAMILY HISTORY Problem Relation Age of Onset Cancer Father leukemia, kidney cancer Hypertension Father Lipids Father Thyroid Maternal Grandmother Hypertension Mother Ischemic Heart Disease Paternal Grandfather Social History Tobacco Use Smoking status: Never Smokeless tobacco: Never Vaping Use Vaping Use: Never used Substance Use Topics Alcohol use: Yes Comment: Very small amount occasionally Drug use: No Current Outpatient Medications Medication Sig dulaglutide (TRULICITY) 1.5 mg/0.5 mL pen injector INJECT 1.5MG SUBCUTANEOUSLY EVERY WEEK pioglitazone (ACTOS) 30 mg tablet Take 1 tablet by mouth once daily. lancets (FREESTYLE LANCETS) 28 gauge TEST BLOOD SUGAR TWICE A DAY blood sugar diagnostic (BLOOD GLUCOSE TEST) test strip Test blood sugar(s) 3 times daily. Dx: Type 2 DM - Uncontrolled E11.65 Insulin: No QUEtiapine XR (SEROQUEL XR) 400 mg 24 hr tablet Take 800 mg by mouth daily at bedtime. clonazePAM (KLONOPIN) 0.5 mg tablet Take 0.5 mg by mouth once daily. busPIRone (BUSPAR) 5 mg tablet Take 5 mg by mouth three times daily as needed. venlafaxine ER (EFFEXOR XR) 150 mg 24 hr capsule Take 150 mg by mouth once daily. omeprazole (PRILOSEC) 20 mg capsule Take 1 capsule by mouth daily before breakfast. propranolol (INDERAL) 40 mg tablet Take 1 tablet by mouth twice daily. glipiZIDE (GLUCOTROL XL) 10mg 24 hr tablet Take 1 tablet by mouth once daily. levothyroxine (SYNTHROID) 100 mcg tablet Take 1 tablet by mouth daily before breakfast. metFORMIN (GLUCOPHAGE) 1,000 mg tablet Take 1 tablet by mouth twice daily. Blood-Glucose Meter (ONETOUCH VERIO METER) Dispense One Kit - Verio Meter Kit Test blood sugar(s) 2 times daily. Dx: Type 2 DM - Controlled E11.9 Insulin: No lithium carbonate 600 mg capsule Take 1 capsule by mouth twice daily. naltrexone (TREXAN) 50 mg tablet Take 50 mg by mouth once daily. hydrOXYzine pamoate (VISTARIL) 50 mg capsule Take 50 mg by mouth three times daily as needed. albuterol HFA (VENTOLIN HFA) 90 mcg/actuation inhaler Inhale 2 Puffs as instructed every 4 hours as needed for Wheezing/Shortness of Breath (May use before exercise). levonorgestrel (MIRENA INTRAUTERINE) by INTRAUTERINE route. No current facility-administered medications for this visit. Allergies As of Date: 01/25/2023 Allergen Noted Reaction LATEX Hives Fully Assessed 01/25/2023 Allergies and current medication updated:Yes EXAM: BP 136/90 Ht 5' 6 (1.68m) Wt 306 lb (138.8kg) BMI 49.41 kg/(m2). GENERAL: pleasant, female in no apparent distress, appears anxious HEENT: Normocephalic, atraumatic, mucus membranes moist, and no lesions ASSESSMENT AND PLAN: contraception discussion- happy w/ Mirena. D/w her it is indicated for 7 years at this time. If breakthrough bleeding or another issue contact office. Recommended pap/annual today, patient declines. She will reschedule that as d/w her importance of this. When due for mirena change will need cytotec and paracervical block. Medical Decision Making: Problems: Minimal: Self-limited or minor problem Risk: Minimal: Minimal risk from testing/treatment Medical Decision Making Level: 2 - Straightforward Richy Santana MD [facility] Progress note 01-10-2023 Note Date & Type Note Facility 01-10-2023 Note HNO ID: [id number] Author: Yanci Rubalcava, OD Service: ? Author Type: MANAGER OF CREATIVE SERVICES Type: Progress Notes Filed: 01/10/2023 4:37 PM Note Text: 1. Type 2 diabetes mellitus without retinopathy (HCC) Risk of diabetic changes and vision loss can be minimized by tight control of blood sugar, blood pressure, and cholesterol levels. Educated patient to continue care with primary care doctor and/or life coach to maintain optimum levels as they are important to avoid ocular complications. Encouraged patient to call the office immediately with any changes to vision or visual concerns. Advised to not wait until the next scheduled exam. 2. Myopia, bilateral 3. Regular astigmatism of both eyes Finalized spec rx Follow-up in 1 year or sooner as needed Yanci Rubalcava, OD January 10, 2023 4:36 PM [facility] Progress note 12-02-2022 Note Date & Type Note Facility 12-02-2022 Note HNO ID: [id number] Author: Debbie Guerrero APRN.[employer] Service: ? Author Type: Nurse Practitioner Type: Progress Notes Filed: 12/05/2022 1:14 PM Note Text: Subjective The history is provided by the patient. No language instructor was used. HPI Rupa Holguin is a 31 year old adult who presents today for CC of boil under left axilla. This started yesterday, round, hard painful, she had a pustule beside it that broke open last week She has not used any treatment or medications. H/o hidradenitis suppurativa. BP 114/86 Pulse 99 Temp 36.4 ?C (97.5 ?F) Resp 20 Wt (!) 136.4 kg (300 lb 9.6 oz) SpO2 95% BMI 48.52 kg/m? Social History Tobacco Use Smoking status: Never Smokeless tobacco: Never Substance Use Topics Alcohol use: Yes Comment: Very small amount occasionally Drug use: No PAST MEDICAL HISTORY Diagnosis Date Adult ADHD 11/14/2017 Binge eating disorder 05/23/2018 Essential hypertension 11/14/2017 Obesity Other specified hypothyroidism 11/14/2017 Due to medication PCOS (polycystic ovarian syndrome) Puberty, precocious Schizoaffective disorder (HCC) Type 2 diabetes mellitus without complication, without long-term current use of insulin (HCC) 11/14/2017 I have confirmed and edited as necessary, the [facility] Review of Systems Constitutional: Negative for chills and fever. Musculoskeletal: Negative for joint pain and myalgias. Skin: Negative for itching and rash. All other systems reviewed and are negative. Objective Physical Exam Vitals and nursing note reviewed. Pulmonary: Effort: Pulmonary effort is normal. Skin: General: Skin is warm and dry. Findings: Erythema and rash present. Rash is nodular. Comments: Small marble size nodule, slightly reddened, hard no fluctuant area. Neurological: Mental Status: Rupa Holguin is alert and oriented to person, place, and time. Psychiatric: Mood and Affect: Affect normal. ASSESSMENT/PLAN: 1. Skin nodule - ICD9: 782.2, ICD10: R22.9 Appears to be boil in right axilla - possible Hidradenitis suppurativa Warm compresses to area Keflex as ordered If no improvement follow up next week with Dr. Valle. Diagnosis and treatment plan were discussed and questions were answered to the patient's satisfaction. Pt acknowledged understanding of concepts and follow up plan. Specific signs and symptoms that would indicate the need for higher level of care were discussed in detail warranting prompt ER evaluation. Debbie Guerrero APRN.[facility] Progress note 10-19-2022 Note Date & Type Note Facility 10-19-2022 Note HNO ID: [id number] Author: Ira Townsend APRN.[facility] Service: ? Author Type: Nurse Practitioner Type: Progress Notes Filed: 10/19/2022 6:24 PM Note Text: CC: Patient presents with: Recheck: 3 month follow up HPI Rupa Holguin is a 31 year old adult who presents today for 3 month diabetes follow up. Was seen 3 months ago for this and consult to endocrinology and diabetic education. Has not seen endicrinology or had education yet. DIABETES MELLITUS: Jose denies excessive thirst or increased frequency of urination, chest pain or dyspnea , numbness, tingling or pain in extremities, new or unusual visual symptoms, low sugar/hypoglycemic reactions, weight loss/gain, lightheadedness/dizziness, and bowel changes/loose stools. Follows a diabetic diet generally not very much. Rupa Holguin is compliant with medication(s) and is tolerating med(s) without any side effects. Rupa Holguin reports checking Rupa Holguin's glucose on a once a day schedule with sugars in the 200s range. Timing varies and not always fasting. Patient's last HgA1C was Hemoglobin A1C (%) Date Value 03/25/2022 6.9 06/03/2021 7.7 07/14/2020 6.1 Hemoglobin A1C (POCT) (%) Date Value 06/23/2022 8.5 01/21/2021 6.6 ) REVIEW OF SYSTEMS General: no fevers, no chills, no night sweats, no recurrent infections, no change in appetite, no change in energy, and no significant changes in weight Respiratory: no cough, no wheezing, no shortness of breath, no hemoptysis Cardiovascular: no chest pain, no chest pressure, no palpitations, and no swelling Endocrine: no fatigue, no polyuria, no polyphagia, and no polydipsia Neurologic: No headache, weakness, numbness, tingling, syncope. PAST MEDICAL HISTORY Diagnosis Date Adult ADHD 11/14/2017 Binge eating disorder 05/23/2018 Essential hypertension 11/14/2017 Obesity Other specified hypothyroidism 11/14/2017 Due to medication PCOS (polycystic ovarian syndrome) Puberty, precocious Schizoaffective disorder (HCC) Type 2 diabetes mellitus without complication, without long-term current use of insulin ([facility]) 11/14/2017 PAST SURGICAL HISTORY Procedure Laterality Date NONE ALLERGIES Latex MEDICATIONS lancets (FREESTYLE LANCETS) 28 gauge TEST BLOOD SUGAR TWICE A DAY blood sugar diagnostic (BLOOD GLUCOSE TEST) test strip Test blood sugar(s) 3 times daily. Dx: Type 2 DM - Uncontrolled E11.65 Insulin: No QUEtiapine XR (SEROQUEL XR) 400 mg 24 hr tablet Take 800 mg by mouth daily at bedtime. TRULICITY 1.5 mg/0.5 mL pen injector INJECT 1.5MG SUBCUTANEOUSLY EVERY WEEK clonazePAM (KLONOPIN) 0.5 mg tablet Take 0.5 mg by mouth once daily. busPIRone (BUSPAR) 5 mg tablet Take 5 mg by mouth three times daily as needed. venlafaxine ER (EFFEXOR XR) 150 mg 24 hr capsule Take 150 mg by mouth once daily. omeprazole (PRILOSEC) 20 mg capsule Take 1 capsule by mouth daily before breakfast. pioglitazone (ACTOS) 15 mg tablet Take 1 tablet by mouth once daily. propranolol (INDERAL) 40 mg tablet Take 1 tablet by mouth twice daily. glipiZIDE (GLUCOTROL XL) 10mg 24 hr tablet Take 1 tablet by mouth once daily. levothyroxine (SYNTHROID) 100 mcg tablet Take 1 tablet by mouth daily before breakfast. metFORMIN (GLUCOPHAGE) 1,000 mg tablet Take 1 tablet by mouth twice daily. Blood-Glucose Meter (CasaHopTOUCH VERIO METER) Dispense One Kit - Verio Meter Kit Test blood sugar(s) 2 times daily. Dx: Type 2 DM - Controlled E11.9 Insulin: No blood sugar diagnostic (ONETOUCH VERIO TEST STRIPS) test strip Test blood sugar(s) 2 times daily. Dx: Type 2 DM - Controlled E11.9 Insulin: No lithium carbonate 600 mg capsule Take 1 capsule by mouth twice daily. naltrexone (TREXAN) 50 mg tablet Take 50 mg by mouth once daily. hydrOXYzine pamoate (VISTARIL) 50 mg capsule Take 50 mg by mouth three times daily as needed. albuterol HFA (VENTOLIN HFA) 90 mcg/actuation inhaler Inhale 2 Puffs as instructed every 4 hours as needed for Wheezing/Shortness of Breath (May use before exercise). levonorgestrel (MIRENA INTRAUTERINE) by INTRAUTERINE route. FAMILY HISTORY Problem Relation Age of Onset Cancer Father leukemia, kidney cancer Hypertension Father Lipids Father Thyroid Maternal Grandmother Hypertension Mother Ischemic Heart Disease Paternal Grandfather Social History Tobacco Use Smoking status: Never Smokeless tobacco: Never Substance Use Topics Alcohol use: Yes Comment: Very small amount occasionally Drug use: No PHYSICAL EXAM BP 114/84 Pulse 80 Resp 16 Wt (!) 139.3 kg (307 lb) BMI 49.55 kg/m? General Appearance: well appearing, in no acute distress, alert Skin: Skin color, texture, turgor normal for age; Eyes: conjunctiva pink and moist, no icterus, sclera white, non-injected Lungs: Lungs clear to auscultation. No wheezing, rhonchi, rales. Heart: RRR without murmur, gallop, or rubs. No ectopy Health maintenance reviewed with patient: HEPATITIS A(1 (more content not included)... [facility] Purpose Family History No Family History Records FoundNo Family History Records FoundNo Family History Records Found Advance Directives No Advanced Directives Records FoundNo Advanced Directives Records FoundNo Advanced Directives Records Found Additional Source Comments INFORMATION SOURCE (unrecogn ized section and content) DATE CREATED AUTHOR AUTHOR'S ORGANIZ ATION 04/14/2021 [facility] DATE CREATED AUTHOR AUTHOR'S ORGANIZ ATION 09/26/2023 [facility] FOR RECORDS PERTAINING TO PATIENTS WHO ARE OR HAVE BEEN ENROLLED IN A CHEMICAL DEPENDENCY/SUBSTANCEABUSE PROGRAM, SOME INFORMATION MAY BE OMITTED. This clinical summary was aggregated from multiple sources. Caution should be exercised in using it in the provision of clinical care. This summary normalizes information from multiple sources, and as a consequence, information in this document may materially change the coding, format and clinical context of patient data. In addition, data may be omitted in some cases. CLINICAL DECISIONS SHOULD BE BASED ON THE PRIMARY CLINICAL RECORDS. [employer] provides no warranty or guarantee of the accuracy or completeness of information in this document.
--- NOTE | 2023-12-09 00:09 | EX.ED.UPPERE ---
HPI History of Present Illness Chief Complaint: Laceration Detail of Chief Complaint: Laceration right long finger Informant: patient Narrative Narrative: Patient presents with laceration to the right long finger that occurred this evening around 10:00. Patient states that she was using a mandolin to cut some squash when she lacerated her finger. Patient is right-hand dominant. Unsure of her last tetanus shot. Patient states that she could not get the bleeding to stop with pressure. [facility] Medical History Anxiety Binge eating disorder Depression Diabetes mellitus, type II HTN (hypertension) Hypothyroid PCOS (polycystic ovarian syndrome) PTSD (post-traumatic stress disorder) Schizoaffective disorder, bipolar type Home Medications esomeprazole magnesium 40 mg capsule,delayed release (Nexium) 40 mg PO DAILY 03/02/17 [History Last Taken 03/02/17] lithium carbonate 300 mg capsule 600 mg PO BID 03/02/17 [History Last Taken 03/02/17] metformin 1,000 mg tablet 2,000 mg PO BID 03/02/17 [History Last Taken 03/02/17] quetiapine 50 mg tablet,extended release 24 hr (Seroquel XR) 500 mg PO QHS 03/02/17 [History Last Taken 03/01/17] venlafaxine 75 mg capsule,extended release 24 hr (Effexor XR) 150 mg PO DAILY 03/02/17 [History Last Taken 03/02/17] dulaglutide 1.5 mg/0.5 mL subcutaneous pen injector 1.5 mg IM QWEEK 06/10/20 [History Last Taken Unknown] glipizide 10 mg tablet, extended release 24 hr 10 mg PO DAILY 06/10/20 [History Last Taken Unknown] lamotrigine 100 mg tablet 100 mg PO DAILY 06/10/20 [History Last Taken Unknown] levothyroxine 100 mcg tablet 100 mcg PO DAILY 06/10/20 [History Last Taken Unknown] pioglitazone 15 mg tablet 15 mg PO DAILY 06/10/20 [History Last Taken Unknown] hydroxyzine pamoate 50 mg capsule 50 mg PO TID 09/30/20 [History Last Taken Unknown] naltrexone 50 mg tablet 50 mg PO DAILY 09/30/20 [History Last Taken Unknown] propranolol 40 mg tablet 40 mg PO BID 11/29/20 [History Last Taken Unknown] lorazepam 1 mg tablet (Ativan) 1 mg PO DAILY PRN anxiety #3 tabs 05/09/21 [Rx Last Taken Unknown] Allergy/AdvReac Type Severity Reaction Status Date / Time aripiprazole [From Abilify] AdvReac MUSCLE Verified 12/08/23 23:33 RIGIDITY iloperidone [From Fanapt] AdvReac Chest Verified 12/08/23 23:33 tightness latex AdvReac Rash Verified 12/08/23 23:33 lurasidone [From Latuda] AdvReac ANXIETY Verified 12/08/23 23:33 ziprasidone [From Geodon] AdvReac TARDIVE Verified 12/08/23 23:33 DYSKINESIA Family History no significant family his Social History (Updated 12/08/23 @ 23:44 by Jenelle Razo) housing: apartment Smoking Status: Never smoker ROS ROS ED Review of Systems ROS Unobtainable: other Constitutional Constitutional ED: Reports lethargy; Denies chills, fever(s), sweats or weight loss Eyes Eyes: Denies blurry vision, change in vision or diplopia ENT ENT ED: Denies rhinorrhea or sore throat Cardiovascular Cardiovascular: Denies chest pain, orthopnea or racing heartbeat Respiratory/Chest Respiratory/Chest: Denies cough, dyspnea, dyspnea on exertion, orthopnea or sputum Gastrointestinal Gastrointestinal: Denies abdominal pain, diarrhea, nausea or vomiting Genitourinary Genitourinary ED: Denies dysuria, hematuria or urinary frequency Musculoskeletal Musculoskeletal: Denies arthralgias, back pain, myalgias or neck pain Integumentary Reports other Details: Laceration to right long finger ; Denies abscess, Abrasions or rash Neurologic Neurologic: Denies headache(s) or weakness Psychiatric Psychiatric: Denies anxiety, depression or suicidal thoughts Endocrine Endocrinology: Denies polydipsia, polyphagia or polyuria Hematologic/Lymphatic Hematologic/Lymphatic: Denies easy bleeding, easy bruising or lymphadenopathy Allergic/Immunologic Allergic/Immunologic ED: Denies mouth swelling, tongue swelling or urticaria EXAM Physical Exam Const Vital Signs: 12/08/23 23:34 Temperature 96.5 F L Temperature Source Temporal Pulse Rate 88 Respiratory Rate 18 Blood Pressure 143/106 H Blood Pressure Mean 118 Pulse Ox 95 Oxygen Delivery Method Room Air Positive well nourished and well developed General Appearance ED: well developed and NAD HEENT Reports TM's clear and moist mucous membranes normocephalic and atraumatic; Negative for trauma or tenderness Tympanic Membrane ED: Yes TM's clear Eyes PERRL and EOMs intact bilaterally General Eye ED: Negative for pale conjunctiva or scleral icterus Neck no lymphadenopathy, supple and no JVD General: Negative for tenderness Chest Wall inspection of chest normal and palpation of chest normal Chest: Negative for tenderness Resp normal respiratory effort and clear to auscultation bilaterally Effort and Inspection: Negative for respiratory distress or pain with movement Auscultation: Negative for rhonchi, wheezes or diminished lung sounds Cardio regular rate, regular rhythm, S1 normal heart sound, S2 normal heart sound and no murmurs Peripheral Pulses: pulses 2+ throughout GI normal to inspection, nondistended, normoactive bowel sounds, soft to palpation, non-tender, non-distended and no masses Back/Spine no CVA tenderness and no thoracic nor lumbar tenderness Extremity Extremity Narrative: Right long finger-patient has a superficial skin avulsion over the volar aspect of the distal pulp of the right long finger. Small amount of venous oozing noted. No nail involvement. Neurovascular intact. General Extremety ED: Negative for edema General Extremity: Negative for edema Neuro oriented x3, CN's II-XII intact bilaterally, no sensory deficits noted and gait normal Sensorium / Orientation: awake, alert, oriented to person, oriented to place and oriented to time Motor Exam: strength 5/5 throughout and strength abnormal Psych mental status grossly normal Skin no rashes or lesions noted and no wounds MDM MDM MDM Narrative Medical decision making narrative: Patient's wound was irrigated. Wound was dried. I used Gelfoam to obtain good hemostasis and clean dressing was applied. Patient was given a tetanus booster. Advised to follow-up with her primary care physician within next 3 to 5 days. To return if increasing pain, redness, swelling, purulent drainage, or condition worsening way. Discharge Plan Triage Chief Complaint: Laceration ED Provider: David Stevens Dx/Rx/DC Orders Clinical Impression: Avulsion of skin Instructions: ED Laceration, Hand: All Closures, ED Skin Tear (Skin Avulsion) Prescriptions: No Action venlafaxine [Effexor XR] 75 mg capsule,extended release 24hr 150 mg PO DAILY Patient Comments: Take 1 capsule once a day lithium carbonate 300 mg capsule 600 mg PO BID Patient Comments: Take 2 capsule twice a day quetiapine [Seroquel XR] 50 mg tablet extended release 24 hr 500 mg PO QHS Patient Comments: Take 2 tablet at bedtime metformin 1,000 MG tablet 2,000 mg PO BID Patient Comments: Morning esomeprazole magnesium [Nexium] 40 MG capsule 40 mg PO DAILY levothyroxine 100 MCG tablet 100 mcg PO DAILY Patient Comments: Morning glipizide 10 tablet extended release 24hr 10 mg PO DAILY Patient Comments: Morning dulaglutide 1.5 pen injector 1.5 mg IM QWEEK Patient Comments: Every Monday Rx Instructions: saturdays pioglitazone 15 MG tablet 15 mg PO DAILY Patient Comments: Morning lamotrigine 100 mg tablet 100 mg PO DAILY Patient Comments: Take 1 tablet by mouth once a day hydroxyzine pamoate 50 MG capsule 50 mg PO TID naltrexone 50 MG tablet 50 mg PO DAILY propranolol 40 MG tablet 40 mg PO BID lorazepam [Ativan] 1 mg tablet 1 mg PO DAILY PRN (Reason: anxiety) Qty: 3 0RF Primary Care Provider: Jenn Chicas Referrals: Jenn Chicas MD [Primary Care Provider] - 3-5 Days Disposition Disposition: Home, Self Care Discharge Date/Time: 12/09/23 00:41
[2023-12-09] MEDS: Diphth,Pertuss(Acell),Tet Vac 0.5 ML Vial IM (00:20)
== END 2023-12-09 00:41 | disposition home or self-care (01) ==
PROVIDERS: Emergency Provider Emergency Medicine; PCP Internal Medicine; Visit Provider Emergency Medicine
DX: S61.212A Laceration without foreign body of right middle finger without damage to nail, initial encounter (principal); E11.9 Type 2 diabetes mellitus without complications; I10 Essential (primary) hypertension; Z23 Encounter for immunization; W26.8XXA Contact with other sharp object(s), not elsewhere classified, initial encounter
CPT/HCPCS: 90471; 90715; 99283

== ENCOUNTER 2025-01-15 23:41 | Emergency (ER) | payer MEDICARE, MEDICAID, SELFPAY ==
[2025-01-15 23:49] VITALS: BP 139/92; PULSE 88; RESP 18; TEMP 36.3; O2SAT 96; BMI 50.0
[2025-01-16 00:31] LABS: Absolute Lymphocyte Count 3.07 X10^3/uL (0.83-4.51); Absolute Neutrophil Count 5.3 X10^3/uL (2.0-7.7); Basophil# 0.06 X10^3/uL; Basophil% 0.7 % (0-1); Eosinophil# 0.15 X10^3/uL; Eosinophils% 1.6 % (0-5); Hemoglobin 13.7 g/dL (12.0-15.0); Lymphocyte # 3.07 X10^3/ul (0.83-4.51); Lymphocyte % 33.6 % (19-41); Mean Corp Hgb Conc 33.4 g/dL (32-36); Mean Corpuscular Hgb 28.4 pg (27.0-32.0); Mean Corpuscular Volume 84.9 fL (81-99); Mean Platelet Vol. 10.2 fl (6.2-12.0); Monocyte# 0.51 X10^3/uL; Monocyte% 5.6 % (0-10); NRBC Flagged by Analyzer 0 % (0-5); Neutrophil # 5.33 X10^3/uL (2.7-7.7); Neutrophil % 58.2 % (47-70); Platelet Count 355 K/mm3 (150-450); Red Blood Count 4.83 M/mm3 (4.2-5.4); White Blood Count 9.2 K/mm3 (4.4-11.0)
--- NOTE | 2025-01-16 00:32 | ED.RN ---
Upon assessment, patient admits to this RN that she is not actively having thoughts of killing herself. Patient states I was having intrusive thoughts earlier about hurting myself but they were just thoughts. The patient used a shaving razor to scratch left forearm, when asked by this RN if the patient intended to kill herself with this attempt, the patient states no, sometimes I just feel like I deserve to be hurt. I was worried that maybe you guys wouldn't believe me. The patient denies hallucinations at this time, but states that she does have hallucinations sometimes.
[2025-01-16 00:39] LABS: Alcohol, Blood (Medical)-Serum < 3.0 mg/dL; Internal QC Validated? YES +Cl - CLEAR BKGD; Pregnancy, Serum, hCG Quali. NEGATIVE Negative
[2025-01-16 00:41] LABS: Anion Gap 4 (5-15); BUN 23 mg/dL (7-18); BUN/Creat Ratio 30.2 RATIO (10-20); Calcium,Total 10.2 mg/dL (8.5-10.1); Chloride 105 mmol/L (98-107); Creatinine, Serum 0.76 mg/dL (0.55-1.02); EST Glomerular Filtration Rate 92 mL/min (>60); Est Glom Filt Rate - Afr Amer 112 mL/min (>60); Estimated Creatinine Clearance 151.23 ml/min; Glucose 193 mg/dL (74-106); Potassium 4.6 mmol/L (3.5-5.1); Sodium Level 138 mmol/L (136-145)
[2025-01-16 01:00] VITALS: BP 124/70; PULSE 89; RESP 18; TEMP 37.1; O2SAT 99
[2025-01-16 01:15] LABS: Amphetamine Urine NEGATIVE (<1000 ng/mL); Barbiturate Urine VISTA NEGATIVE (< 200 ng/mL); Benzodiazepine Urine VISTA NEGATIVE (< 200 ng/mL); Cocaine Urine VISTA NEGATIVE (< 300 ng/mL); Ecstacy Urine VISTA NEGATIVE (< 500 ng/mL); Vista UDS pH Range 5
[2025-01-16 01:16] LABS: Methadone Urine VISTA NEGATIVE (< 300 ng/mL); Opiates Urine NEGATIVE (< 300 ng/mL); PCP Urine NEGATIVE (< 25 ng/mL); THC Urine VISTA NEGATIVE (< 50 ng/mL)
--- NOTE | 2025-01-16 04:03 | EX.ED.DYSGE1 ---
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 She states she has not been taking her meds as directed for quite some time and she feels like her depression has been worsening. She also reports that this time of year is near the anniversary of a time when she lost multiple friends and this has worsened her depression as well. She states that she is very impulsive and is concerned that she might attempt to self-harm and she does not feel safe at home. Secondary to this she was brought in for evaluation [facility] Medical History Anxiety Depression Diabetes mellitus, type II HTN (hypertension) PCOS (polycystic ovarian syndrome) Hypothyroid Binge eating disorder PTSD (post-traumatic stress disorder) Schizoaffective disorder, bipolar type Home Medications ?Medication ?Instructions ?Recorded ?Last Taken ?Type lithium carbonate 300 mg capsule 600 mg PO BID 03/02/17 03/02/17 History metformin 1,000 mg tablet 1,000 mg PO BID 03/02/17 03/02/17 History venlafaxine 75 mg capsule,extended 150 mg PO DAILY 03/02/17 03/02/17 History release 24 hr (Effexor XR) glipizide 10 mg tablet, extended 10 mg PO DAILY 06/10/20 Unknown History release 24 hr levothyroxine 100 mcg tablet 100 mcg PO DAILY 06/10/20 Unknown History hydroxyzine pamoate 50 mg capsule 50 mg PO TID PRN anxiety 09/30/20 Unknown History naltrexone 50 mg tablet 50 mg PO DAILY 09/30/20 Unknown History propranolol 40 mg tablet 40 mg PO BID 10/25/20 Unknown History buspirone 5 mg tablet 5 mg PO 3XD PRN anxiety 01/16/25 Unknown History clonazepam 0.5 mg tablet 0.5 mg PO DAILY 01/16/25 01/16/25 History lithium carbonate 600 mg capsule 600 mg PO BID 01/16/25 Unknown History omeprazole 20 mg capsule,delayed 20 mg PO DAILY 01/16/25 Unknown History release pioglitazone 30 mg tablet 30 mg PO DAILY 01/16/25 Unknown History quetiapine 400 mg tablet,extended 800 mg PO QHS 01/16/25 Unknown History release 24 hr semaglutide 1 mg/dose (4 mg/3 mL) 1 mg subcut QWEEK 01/16/25 Unknown History subcutaneous pen injector (Ozempic) Allergy/AdvReac Type Severity Reaction Status Date / Time aripiprazole (From Abilify) AdvReac MUSCLE Verified 01/15/25 23:49 RIGIDITY iloperidone (From Fanapt) AdvReac Chest Verified 01/15/25 23:49 tightness latex AdvReac Rash Verified 01/15/25 23:49 lurasidone (From Latuda) AdvReac ANXIETY Verified 01/15/25 23:49 ziprasidone (From Geodon) AdvReac TARDIVE Verified 01/15/25 23:49 DYSKINESIA Social History (Updated 12/08/23 @ 23:44 by Jenelle Razo) housing: apartment Smoking Status: Former smoker ROS ROS ED Constitutional Constitutional ED: Denies chills or fever(s) Eyes Eyes: Denies change in vision ENT ENT ED: Denies sore throat Cardiovascular Cardiovascular: Denies chest pain Respiratory/Chest Respiratory/Chest: Denies cough or dyspnea Gastrointestinal Gastrointestinal: Denies abdominal pain, diarrhea, nausea or vomiting Genitourinary Genitourinary ED: Denies dysuria Musculoskeletal Musculoskeletal: Denies myalgias Integumentary Denies rash Neurologic Neurologic: Denies headache(s) Psychiatric Psychiatric: Reports anxiety, depression and suicidal thoughts Hematologic/Lymphatic Hematologic/Lymphatic: Denies easy bleeding or easy bruising EXAM Physical Exam Const Vital Signs: 01/15/25 23:49 01/16/25 01:00 Temperature 97.3 F L 98.7 F Temperature Source Temporal Oral Pulse Rate 88 89 Respiratory Rate 18 18 Blood Pressure 139/92 H 124/70 H Blood Pressure Mean 107 88 Pulse Ox 96 99 Oxygen Delivery Method Room Air Room Air Positive well nourished, well developed and obese General Appearance ED: well developed Nutritional Appearance: obese HEENT HEENT Narrative: Normocephalic atraumatic Eyes PERRL and EOMs intact bilaterally General Eye ED: Negative for scleral icterus Neck supple and no JVD Neck Narrative: No nuchal rigidity or meningeal signs Resp normal respiratory effort and clear to auscultation bilaterally Cardio regular rate and regular rhythm GI normal to inspection, nondistended, normoactive bowel sounds, non-tender, non-distended and no masses Auscultation: normoactive bowel sounds Palpation: soft Extremity Extremity Narrative: Patient has superficial abrasion to the dorsal aspect of the left arm that she states she sustained from using a razor to cut herself. The area is superficial only in the epidermal layer without signs of active bleeding infection or retained foreign body The remainder the exam is normal without signs of swelling bony deformity or joint effusion Neuro oriented x3, CN's II-XII intact bilaterally and no sensory deficits noted Sensorium / Orientation: alert Motor Exam: strength 5/5 throughout Psych Mood & Affect: depressed Skin Skin Narrative: Abrasion to the left forearm as documented above otherwise normal MDM MDM MDM Narrative Medical decision making narrative: Patient arrived to the ER slightly hypertensive but otherwise with stable vitals. She reported worsening depression and had concerns of her safety at home as she felt she could be impulsive and perform self-harm. She has needed placed in a psychiatric hospital years before secondary to bouts of psychosis. At this time she is requesting treatment/placement and therefore I did feel it was appropriate to perform medical screening exam and consult crisis center/psychiatry. Lab work revealed no clinically significant findings and after talking with psychiatry they do feel that placement would be in her best option. A pink slip was filled out as documented on the chart but the patient is hemodynamically stable without signs of acute infection acute intoxication or drug use or signs of acute kidney injury or electrolyte abnormality. The patient is medically cleared from emergency room standpoint for transfer/placement to a psychiatric hospital History & Record Review Discussion w/independent historian: Patient Lab Data Attestation: I reviewed the patient's lab results. Labs: Laboratory Results - last 24 hr 01/16/25 01/16/25 00:00 00:10 WBC 9.2 RBC 4.83 Hgb 13.7 Hct 41.0 MCV 84.9 MCH 28.4 MCHC 33.4 RDW Std Deviation 40.0 RDW Coeff of Edward 13.0 Plt Count 355 MPV 10.2 Immature Gran % (Auto) 0.300 Neut % (Auto) 58.2 Lymph % (Auto) 33.6 Eaton % (Auto) 5.6 Eos % (Auto) 1.6 Baso % (Auto) 0.7 Absolute Neuts (auto) 5.3 Absolute Lymphs (auto) 3.07 Nucleated RBC % 0 Sodium 138 Potassium 4.6 Chloride 105 Carbon Dioxide 28.0 Anion Gap 4 L BUN 23 H Creatinine 0.76 Estim Creat Clear Calc 151.23 Est GFR (MDRD) Af Amer 112 Est GFR (MDRD) Non-Af 92 BUN/Creatinine Ratio 30.2 H Glucose 193 H Calcium 10.2 H Serum , Qual NEGATIVE Urine Opiates Screen NEGATIVE Urine Methadone Screen NEGATIVE Ur Barbiturates Screen NEGATIVE Ur Phencyclidine Scrn NEGATIVE Ur Amphetamines Screen NEGATIVE MDMA (Ecstasy) Screen NEGATIVE U Benzodiazepines Scrn NEGATIVE Urine Cocaine Screen NEGATIVE U Cannabinoids Screen NEGATIVE Ur Drug Screen Comment Ethyl Alcohol < 3.0 Management Discussion w/another healthcare provider: Behavioral health Discharge Plan Triage Chief Complaint: Suicidal ED Provider: Charanjit Szymanski Dx/Rx/DC Orders Clinical Impression: Depression with suicidal ideation, Schizoaffective disorder, Type 2 diabetes mellitus, Hypothyroid Prescriptions: No Action venlafaxine [Effexor XR] 75 mg capsule,extended release 24hr 150 mg PO DAILY Patient Comments: Take 1 capsule once a day lithium carbonate 300 mg capsule 600 mg PO BID Patient Comments: Take 2 capsule twice a day metformin 1,000 MG tablet 1,000 mg PO BID levothyroxine 100 MCG tablet 100 mcg PO DAILY Patient Comments: Morning glipizide 10 tablet extended release 24hr 10 mg PO DAILY Patient Comments: Morning hydroxyzine pamoate 50 MG capsule 50 mg PO TID PRN (Reason: anxiety) naltrexone 50 MG tablet 50 mg PO DAILY propranolol 40 MG tablet 40 mg PO BID Ozempic 1 mg/dose (4 mg/3 mL) pen injector 1 mg SUBCUT QWEEK Patient Comments: [NO ORIGINAL SIG] clonazepam 0.5 mg tablet 0.5 mg PO DAILY lithium carbonate 600 mg capsule 600 mg PO BID pioglitazone 30 mg tablet 30 mg PO DAILY quetiapine 400 mg tablet extended release 24 hr 800 mg PO QHS Patient Comments: [NO ORIGINAL SIG] omeprazole 20 mg capsule,delayed release(DR/EC) 20 mg PO DAILY buspirone 5 mg tablet 5 mg PO 3XD PRN (Reason: anxiety) Patient Comments: Pt. admits that she is supposed to take it TID but reports only taking it when needed. (01/16/2025) Primary Care Provider: Jenn Chicas Referrals: Jenn Chicas MD [Primary Care Provider] - Print Language: Frisian Disposition Disposition: Psychiatric Hospital or Unit Discharge Location: [facility]
[2025-01-16] MEDS: clonazePAM 0.5 MG Tablet PO (04:41)
--- NOTE | 2025-01-16 05:42 | ED.RN ---
PT ACCEPTED AT [facility] [address] [phone]
[2025-01-16 06:44] VITALS: BP 129/84; PULSE 84; RESP 17; O2SAT 97
[2025-01-16 06:52] VITALS: BP 129/84; PULSE 87; RESP 18; TEMP 37.1; O2SAT 98
[2025-01-16] MEDS: Levothyroxine 100 MCG Tablet PO (07:10)
[2025-01-16] MEDS: metFORMIN HCl 1,000 MG Tablet 1000 MG PO (08:39)
[2025-01-16] MEDS: glipiZIDE XL 5 MG Tablet 10 MG PO (08:39)
== END 2025-01-16 09:45 ==
PROVIDERS: Emergency Provider Emergency Medicine; PCP Internal Medicine; Visit Provider Emergency Medicine
DX: R45.851 Suicidal ideations (principal); F25.0 Schizoaffective disorder, bipolar type; E11.9 Type 2 diabetes mellitus without complications; F32.A Depression, unspecified; Z87.891 Personal history of nicotine dependence; I10 Essential (primary) hypertension; E03.9 Hypothyroidism, unspecified; Z79.85 Long-term (current) use of injectable non-insulin antidiabetic drugs; Z79.899 Other long term (current) drug therapy; F41.9 Anxiety disorder, unspecified; E66.9 Obesity, unspecified
CPT/HCPCS: 80048; 80307; 82077; 84703; 85025; 99285

== ENCOUNTER 2025-03-13 22:34 | Emergency (ER) | payer MEDICARE, MEDICAID, SELFPAY ==
[2025-03-13 22:35] VITALS: BP 140/102; PULSE 113; RESP 22; TEMP 36.1; O2SAT 95; BMI 51.0
--- NOTE | 2025-03-13 23:17 | ED.VIS.DENTA ---
HPI History of Present Illness Chief Complaint: Dental Informant: patient Narrative Narrative: Dental The for 8 months been giving her problems for 4 weeks with hot and cold sensitivities. Saw dentist 3 weeks ago states was given appointment for April 18 for treatment she cannot tell me exactly what the plans are. No antibiotics were started. She had symptoms when she saw the dentist. No fevers. No trouble swallowing. [facility] Medical History Anxiety Depression Diabetes mellitus, type II HTN (hypertension) PCOS (polycystic ovarian syndrome) Hypothyroid Binge eating disorder PTSD (post-traumatic stress disorder) Schizoaffective disorder, bipolar type Home Medications ?Medication ?Instructions ?Recorded ?Last Taken ?Type metformin 1,000 mg tablet 1,000 mg PO BID 03/02/17 03/02/17 History venlafaxine 75 mg capsule,extended 150 mg PO DAILY 03/02/17 03/02/17 History release 24 hr (Effexor XR) glipizide 10 mg tablet, extended 10 mg PO DAILY 06/10/20 Unknown History release 24 hr levothyroxine 100 mcg tablet 100 mcg PO DAILY 06/10/20 Unknown History hydroxyzine pamoate 50 mg capsule 50 mg PO TID PRN anxiety 09/30/20 Unknown History naltrexone 50 mg tablet 50 mg PO DAILY 09/30/20 Unknown History propranolol 40 mg tablet 40 mg PO BID 10/25/20 Unknown History buspirone 5 mg tablet 5 mg PO 3XD PRN anxiety 01/16/25 Unknown History clonazepam 0.5 mg tablet 0.5 mg PO DAILY 01/16/25 01/16/25 History lithium carbonate 600 mg capsule 600 mg PO BID 01/16/25 Unknown History omeprazole 20 mg capsule,delayed 20 mg PO DAILY 01/16/25 Unknown History release pioglitazone 30 mg tablet 30 mg PO DAILY 01/16/25 Unknown History quetiapine 400 mg tablet,extended 800 mg PO QHS 01/16/25 Unknown History release 24 hr semaglutide 1 mg/dose (4 mg/3 mL) 1 mg subcut QWEEK 01/16/25 Unknown History subcutaneous pen injector (Ozempic) penicillin V potassium 500 mg 500 mg PO 4X/DAY #40 tabs 03/13/25 Unknown Rx tablet Allergy/AdvReac Type Severity Reaction Status Date / Time aripiprazole (From [facility]) AdvReac MUSCLE Verified 03/13/25 22:35 RIGIDITY iloperidone (From Fanapt) AdvReac Chest Verified 03/13/25 22:35 tightness latex AdvReac Rash Verified 03/13/25 22:35 lurasidone (From Latuda) AdvReac ANXIETY Verified 03/13/25 22:35 ziprasidone (From Geodon) AdvReac TARDIVE Verified 03/13/25 22:35 DYSKINESIA Social History housing: apartment Smoking Status: Never smoker ROS ROS ED Constitutional Constitutional ED: Denies chills, fever(s) or sweats ENT ENT ED: Reports other Details: Dental pain. ; Denies sore throat Cardiovascular Cardiovascular: Denies chest pain Respiratory/Chest Respiratory/Chest: Denies cough, dyspnea or dyspnea on exertion Gastrointestinal Gastrointestinal: Denies diarrhea, nausea or vomiting Integumentary Denies rash or wounds Neurologic Neurologic: Denies headache(s) EXAM Physical Exam Const Vital Signs: 03/13/25 22:35 Temperature 97 F L Temperature Source Temporal Pulse Rate 113 H Respiratory Rate 22 H Blood Pressure 140/102 H Blood Pressure Mean 114 Pulse Ox 95 Oxygen Delivery Method Room Air Positive well nourished and well developed General Appearance ED: well developed and NAD HEENT Reports moist mucous membranes HEENT Narrative: Dental cavity tooth #5 no abscess. No swallowing edema. Airway patent. normocephalic and atraumatic Eyes General Eye ED: Yes normal appearance of both eyes Neck full ROM Chest Wall Chest: Negative for tenderness Resp normal respiratory effort and normal air movement Effort and Inspection: symmetric chest movement; Negative for respiratory distress Cardio regular rate, regular rhythm and no murmurs Peripheral Pulses: pulses 2+ throughout GI normal to inspection, nondistended, normoactive bowel sounds and non-tender Palpation: Negative for guarding or rebound tenderness present Extremity normal to inspection General Extremety ED: Negative for edema or tenderness General Extremity: Negative for edema Neuro oriented x3 and no sensory deficits noted Sensorium / Orientation: awake and alert Skin no rashes or lesions noted and no wounds MDM MDM MDM Narrative Medical decision making narrative: Interventions / MDM: Differential diagnosis:Dental carry, dentalgia Diagnosis considered but do not suspect: No clinical dental abscess My EKG interpretation: N/A Imaging independently reviewed and interpreted by myself: N/A External documents reviewed: N/A Test considered but not ordered:N/A ED course: Afebrile nontoxic dentalgia with a focal dental carry tooth #5. No abscess. Patient started on penicillin. Patient given dental list in addition to her follow-up for definitive treatment with a dentist. All questions were answered. Re-evaluation: stable Disposition discussed with patient/family/significant other: Patient Case discussed with consulting clinician: N/A This note was generated with [employer] dictation software. It may contain incorrect words, spelling, and punctuation that were not noted in checking the note before signing. Discharge Plan Triage Chief Complaint: Dental ED Provider: Angel Lee Dx/Rx/DC Orders Clinical Impression: Pain, dental, Dental caries Instructions: ED Dental Pain, ED Dental Cavity Prescriptions: New penicillin V potassium 500 mg tablet 500 mg PO 4X/DAY Qty: 40 0RF No Action venlafaxine [Effexor XR] 75 mg capsule,extended release 24hr 150 mg PO DAILY Patient Comments: Take 1 capsule once a day metformin 1,000 MG tablet 1,000 mg PO BID levothyroxine 100 MCG tablet 100 mcg PO DAILY Patient Comments: Morning glipizide 10 tablet extended release 24hr 10 mg PO DAILY Patient Comments: Morning hydroxyzine pamoate 50 MG capsule 50 mg PO TID PRN (Reason: anxiety) naltrexone 50 MG tablet 50 mg PO DAILY propranolol 40 MG tablet 40 mg PO BID Ozempic 1 mg/dose (4 mg/3 mL) pen injector 1 mg SUBCUT QWEEK Patient Comments: [NO ORIGINAL SIG] clonazepam 0.5 mg tablet 0.5 mg PO DAILY lithium carbonate 600 mg capsule 600 mg PO BID pioglitazone 30 mg tablet 30 mg PO DAILY quetiapine 400 mg tablet extended release 24 hr 800 mg PO QHS Patient Comments: [NO ORIGINAL SIG] omeprazole 20 mg capsule,delayed release(DR/EC) 20 mg PO DAILY buspirone 5 mg tablet 5 mg PO 3XD PRN (Reason: anxiety) Patient Comments: Pt. admits that she is supposed to take it TID but reports only taking it when needed. (01/16/2025) Primary Care Provider: Jenn Chicas Referrals: Jenn Chicas MD [Primary Care Provider] - Activity Restrictions/Additional Instructions: Take antibiotic as prescribed. Follow-up with dentist for definitive treatment. Print Language: Malian Disposition Disposition: Home, Self Care Discharge Date/Time: 03/13/25 23:27
[2025-03-13] MEDS: Penicillin Vk 250 MG Tablet 500 MG PO (23:26)
== END 2025-03-13 23:27 | disposition home or self-care (01) ==
PROVIDERS: Emergency Provider Emergency Medicine; PCP Internal Medicine; Referring Provider Emergency Medicine; Visit Provider Emergency Medicine
DX: K02.9 Dental caries, unspecified (principal); E11.638 Type 2 diabetes mellitus with other oral complications; I10 Essential (primary) hypertension
CPT/HCPCS: 99282